=== PATIENT | male | born 1990 | race Caucasian/White ===

== ENCOUNTER 2021-04-17 15:05 | Emergency (ER) | payer MEDICAID, SELFPAY ==
[2021-04-17 15:52] VITALS: BP 136/77; PULSE 84; RESP 18; TEMP 36.5; O2SAT 96; BMI 39.1
--- NOTE | 2021-04-17 17:07 | ED.EYEPROB ---
HPI - Eye Problem General Chief complaint: Eye Problems Stated complaint: eye problems Time Seen by Provider: 04/17/21 16:44 Source: patient Mode of arrival: ambulatory Limitations: no limitations History of Present Illness HPI Narrative: Patient comes emergency room complaining of right eye erythema and itchiness and foreign body sensation. Patient states yesterday at work, he started noticing that his eye started bothering him, felt a little itchy, patient states that this morning his eye was sticky, had to clean it up to open it, has sand like sensation in his eye. Patient states that at work he does not remember any foreign bodies going into his eye. The left eye is within normal limits. Patient denies fever chills, no ear pain, no sinus pain. Related Data Previous Rx's Medication Instructions Recorded erythromycin 1 appl OPHTHALMIC-RIGHT BID #1 g 04/17/21 Allergies Allergy/AdvReac Type Severity Reaction Status Date / Time No Known Allergies Allergy Unverified 07/25/20 19:16 [No Known Allergies*] Review of Systems Review of Systems: Constitutional : No Weight loss, No Fever, No Chills, No Night Sweats, No Fatigue, No Malaise ENT/Mouth : No Hearing loss, No Ear Pain, No Nasal Congestion, No Sinus Pain, No Hoarseness, No sore throat, No Rhinorrhea, No Swallowing Difficulty Eyes: Mild eye burning, erythema, mild sticking discharge, normal vision bilaterally Cardiovascular : No Chest Pain, No SOB, No Dyspnea on Exertion, No Orthopnea, No Edema, No Palpitations Respiratory : No Cough, No Sputum, No Wheezing, No Smoke Exposure, No Dyspnea Gastrointestinal : No Nausea, No Vomiting, No Diarrhea, No Constipation, No abdominal Pain, No Hematochezia, No Melena Genitourinary : no irregular bleeding, No Dysuria, No Urinary Frequency, No Hematuria, No Urinary Incontinence, No Urgency, No Flank Pain, No Urinary Flow Changes, No Hesitancy Musculoskeletal : No joint pain, No Myalgias, No Joint Swelling Skin : No Skin Lesions, No rash Neuro : No Weakness, No Numbness, No Paresthesias, No Loss of Consciousness, No Dizziness, No Headache Psych : No Anxiety/Panic, No Depression, No SI/HI/AH/VH, No Social Issues, Heme/Lymph: No Bruising, No Bleeding,No Lymphadenopathy Endocrine : No Polyuria, No Polydipsia, No Temperature Intolerance PMFSH Past Medical History Medical History No known health problems Social History Social History Advance Directives: No Advance Directives Information Provided: Yes Physical Exam Vital Signs: Vital Signs: Last Vital Signs Temp 97.7 F 04/17/21 15:52 Pulse 84 04/17/21 15:52 Resp 18 04/17/21 15:52 BP 136/77 04/17/21 15:52 Pulse Ox 96 04/17/21 15:52 Body Mass Index 39.1 Appearance: Alert. Oriented X3. No acute distress. Eyes: Pupils equal, round and reactive to light. Erythematous eye on the right side, fluorescein stain test negative, no corneal abrasion. Visual acuity test bilaterally 25/20 ENT: Pharynx normal. Neck: Normal inspection. Neck supple. No lymph nodes noted. No crepitus CVS: Normal heart rate and rhythm. Pulses normal. Normal S1 and S2 Respiratory: No respiratory distress. Breath sounds normal. No Wheezing. No rales Abdomen: Soft and nontender. No rigidity. No distention. good BS x4 Skin: Skin warm and dry. Normal skin color. Normal skin turgor. Extremities: No lower extremity edema. No lower extremity edema. No Lacerations. No Rash Neuro: Oriented X 3. No motor deficit. No sensory deficit. Moving all extermities. No slurred speech. Discharge Plan Discharge Clinical Impression: Conjunctivitis Qualifiers: Conjunctivitis type: acute Acute conjunctivitis type: unspecified Laterality: right Qualified Code(s): H10.31 - Unspecified acute conjunctivitis, right eye Patient Disposition: Home, Self-Care Instructions: Conjunctivitis (ED) Additional Instructions: Please follow-up with your primary care physician tomorrow. If you have any worsening or new symptoms, please return to the emergency room or call 911 Prescriptions: New erythromycin 5 mg/gram (0.5 %) ointment 1 appl ophthalmic-Right BID Qty: 1 RF: 0
[2021-04-17] MEDS: Tetracaine HCl/PF 0.5% Oph Sol 4 ML DROPS 1 DROP EYE-BOTH (17:34)
[2021-04-17] MEDS: Fluorescein Sodium STRIP 1 STRIP EYE-RIGHT (17:34)
== END 2021-04-17 17:51 | disposition home or self-care (01) ==
PROVIDERS: Emergency Provider Emergency Medicine
DX: H10.31 Unspecified acute conjunctivitis, right eye (principal)
CPT/HCPCS: 99283

== ENCOUNTER 2023-09-24 22:25 | Emergency (ER) | payer OTHER, SELFPAY ==
[2023-09-24 22:37] VITALS: BP 152/88; PULSE 95; RESP 20; TEMP 36.9; O2SAT 96; BMI 41.9
--- NOTE | 2023-09-24 23:40 | ED_ITS ---
HPI - Allergic Reaction General Chief complaint: Allergic Reaction Stated complaint: Swollen Lip Time Seen by Provider: 09/24/23 23:27 Source: patient Mode of arrival: ambulatory Limitations: no limitations History of Present Illness HPI narrative: Patient with no history of any allergic reactions in the past took amoxicillin for the 1st time at 19:00 for tooth infection given by dentist also he was prescribed ibuprofen which he has taken before noticed swelling of the upper lip no throat swelling no difficulty in swallowing or shortness of breath no rash patient is not taking any other medication no allergic reaction in the past Related Data Previous Rx's Medication Instructions Recorded erythromycin 5 mg/gram (0.5 %) eye 1 appl ophthalmic-Right BID #1 g 04/17/21 ointment azithromycin 500 mg tablet 500 mg PO DAILY 3 days #3 tabs 09/25/23 (Zithromax TRI-CAROL) diphenhydramine HCl 25 mg capsule 50 mg (2 x 25 mg) PO TID PRN 09/25/23 (Benadryl) allergic reaction #20 caps Allergies Allergy/AdvReac Type Severity Reaction Status Date / Time No Known Allergies Allergy Unverified 07/25/20 19:16 [No Known Allergies*] Review of Systems Review of Systems: Yes all other systems are reviewed and are negative [facility] Past Medical History Medical History No known health problems Social History Social History Alcohol intake: never Smoked in Last 30 Days: No Use of substances other than those prescribed or required for medical reasons: No Advance Directives: No Advance Directives Information Provided: Yes Physical Exam ED Vital Signs: Vital Signs - 24 hr 09/24/23 22:37 09/24/23 23:50 Temperature 98.4 F 98.2 F Pulse Rate 95 83 Respiratory Rate 20 16 Blood Pressure 152/88 H 113/59 L Pulse Oximetry 96 94 Oxygen Delivery Method Room Air Room Air BMI result Body Mass Index 41.9 Appearance: Alert. Oriented X3. No acute distress. ENT: Pharynx normal. Uvula normal swollen upper lip, Oral Mucosa moist Neck: Normal inspection. Neck supple. No stridor CVS: Normal heart rate and rhythm. Pulses normal. Respiratory: No respiratory distress. Equal air entry bilateral, no whee zing/rales/rhonchi Abdomen: Soft and nontender. Skin: Skin warm and dry. No rash Neuro: Oriented X 3. Medications Administered Discontinued Medications Generic Name Dose Route Start Last Admin Trade Name Freq PRN Reason Stop Dose Admin Diphenhydramine HCl 50 mg 09/24/23 23:50 09/24/23 23:55 Diphenhydramine Hcl 50 Mg/Ml Vial IVPUSH 09/24/23 23:51 50 mg ONCE ONE Administration Methylprednisolone Sodium Succinate 125 mg 09/24/23 23:50 09/24/23 23:55 Methylprednisolone Sod Succ 125 Mg/2 Ml Vial IVPUSH 09/24/23 23:51 125 mg ONCE ONE Administration Medical Decision Making Medical Decision Making [facility] Narrative: Patient with localized angioedema secondary to amoxicillin which he took received Benadryl in the ER and steroids no further spread of the slight swelling discharge patient home advised not to take amoxicillin in future Discharge Plan Discharge Clinical Impression: Angioedema Patient Disposition: Home, Self-Care Instructions: Angioedema (ED) Additional Instructions: You are allergic to penicillin/amoxicillin Do not take these medications in future Take Benadryl as prescribed for allergic reaction Antibiotic as prescribed for teeth infection Report to the ER if worsening of the swelling of the lips/tongue/difficulty in breathing Eres al?rgico a la penicilina/amoxicilina. No tome estos medicamentos en el futuro. [place] Benadryl seg?n lo prescrito para malou reacci?n al?rgica. Antibi?princess recetado para la infecci?n de los dientes. Informe a urgencias si empeora la hinchaz?n de los Prescriptions: New azithromycin [Zithromax TRI-CAROL] 500 mg tablet 500 mg PO DAILY 3 Days Qty: 3 0RF diphenhydramine HCl [Benadryl] 25 mg capsule 50 mg PO TID PRN (Reason: allergic reaction) Qty: 20 0RF No Action erythromycin 5 mg/gram (0.5 %) ointment 1 appl ophthalmic-Right BID Qty: 1 0RF Stand Alone Forms: Work/School Release Interventions: ED Discharge Assessment Last Done: 09/25/23 01:18 Discharge Date/Time: 09/25/23 01:19 Print Language: French
[2023-09-24 23:50] VITALS: BP 113/59; PULSE 83; RESP 16; TEMP 36.8; O2SAT 94
[2023-09-24] MEDS: methylPREDNISolone Sod Succ 125 MG/2 ML VIAL IVPUSH (23:55)
[2023-09-24] MEDS: diphenhydrAMINE HCL 50 MG/ML VIAL IVPUSH (23:55)
--- NOTE | 2023-09-25 00:02 | PC.NURSE ---
Patient reports he developed lips swelling after taking Amoxicillin and Ibuprofen around 19:00 today recent dental work. Patient feels that his lips are swollen, no rash, no difficulty swallowing, airway patent. 20 G V line inserted in L AC, patient medicated per JAN. Dr. Gonzalez at bedside, call sanchez within patient's reach.
== END 2023-09-25 01:19 | disposition home or self-care (01) ==
PROVIDERS: Emergency Provider Internal Medicine
DX: T78.3XXA Angioneurotic edema, initial encounter (principal); Y99.9 Unspecified external cause status
CPT/HCPCS: 96374; 96375; 99284; J1200; J2930

== ENCOUNTER 2023-09-26 06:35 | Observation (INO) | payer OTHER, SELFPAY ==
[2023-09-26] VITALS (10 sets, daily range): BP systolic 110–142; BP diastolic 59–91; PULSE 78–99; RESP 14–28; TEMP 36.4–37.2; O2SAT 91–97; BMI 41.9
--- NOTE | 2023-09-26 07:17 | ED.ALLEREA ---
HPI - Allergic Reaction General Chief complaint: Allergic Reaction Stated complaint: gen med, was here recently Time Seen by Provider: 09/26/23 07:07 Source: patient Mode of arrival: ambulatory Limitations: no limitations History of Present Illness HPI narrative: Patient was seen it treated in the emergency department for angioedema of the lips the return today complaining of a recurrent swelling of the lips he was discharged on azithromycin previously was taking amoxicillin was felt that the amoxicillin was the culprit MD complaint: other (Swelling lips) Onset (ago): day(s) (1) Known history of allergy to: ? amoxicillin Symptoms: lip swelling Severity: moderate Treatment prior to arrival: benadryl Previous Allergic Reaction History: prior ED visit(s) Related Data Previous Rx's Medication Instructions Recorded azithromycin 500 mg tablet 500 mg PO DAILY 3 days #3 tabs 09/25/23 (Zithromax TRI-CAROL) diphenhydramine HCl 25 mg capsule 50 mg (2 x 25 mg) PO TID PRN 09/25/23 (Benadryl) allergic reaction #20 caps Allergies Allergy/AdvReac Type Severity Reaction Status Date / Time amoxicillin AdvReac Angioedema Verified 09/26/23 06:39 Penicillins AdvReac Angioedema Verified 09/26/23 06:40 Review of Systems Constitutional: Constitutional: Reports no additional constitutional complaints ENT: Reports system reviewed and no additional complaints, except as documented Cardiovascular: Cardiovascular: Reports no additional cardiovascular complaints Respiratory: Respiratory: Reports no additional respiratory complaints [facility] Past Medical History [facility] Narrative: denies Medical History No known health problems Social History Social History Alcohol intake: never Advance Directives: No Advance Directives Information Provided: Yes Physical Exam ED Vital Signs: Vital Signs - 24 hr 09/26/23 06:40 09/26/23 07:01 09/26/23 10:45 Temperature 97.9 F 98.4 F 99.0 F Pulse Rate 81 78 85 Respiratory Rate 18 19 19 Blood Pressure 131/86 142/91 H 124/81 Pulse Oximetry 97 96 96 Oxygen Delivery Method Room Air Room Air Room Air BMI result Body Mass Index 41.9 Patient looks well no toxic-appearing Const General: cooperative and comfortable Nutritional Appearance: well nourished Orientation/consciousness: patient oriented x3 Limitations: no limitations HENMT Other: Lip swelling noted Face and sinus: Yes other (Swelling lips) Throat: Yes posterior oropharynx normal Neck Neck: Yes normal visual inspection Chest Chest palpation & inspection: normal inspection of the chest Resp Effort & Inspection: normal respiratory effort Auscultation: clear to auscultation bilaterally Cardio Jugular venous distension: no JVD Rate: regular rate Rhythm: regular rhythm GI Inspection: Yes normal to inspection Palpation (GI): Soft to palpation, not firm and nontender Percussion: Yes normal to percussion Auscultation: normal bowel sounds Skin General skin exam: no rashes or lesions noted and elasticity normal Neuro General: patient oriented x3 Course Reevaluation(s) Reevaluation #1: Patient lips remained swallen this is the 2nd trip to the emergency department, I think it is reasonable to admit him for close monitoring Time: 13:49 Medications Administered Discontinued Medications Generic Name Dose Route Start Last Admin Trade Name Freq PRN Reason Stop Dose Admin Dexamethasone Sodium Phosphate 10 mg 09/26/23 07:15 09/26/23 07:51 Dexamethasone Sod Phosphate 10 Mg/Ml Vial IVPUSH 09/26/23 07:16 10 mg ONCE ONE Administration Diphenhydramine HCl 25 mg 09/26/23 07:15 09/26/23 07:50 Diphenhydramine Hcl 50 Mg/Ml Vial IVPUSH 09/26/23 07:16 25 mg ONCE ONE Administration Famotidine 20 mg 09/26/23 07:39 09/26/23 07:51 Famotidine/Pf 20 Mg/2 Ml Vial IVPUSH 09/26/23 07:40 20 mg ONCE ONE Administration Medical Decision Making Medical Decision Making [facility] Narrative: Patient presented with recurrent angioedema of the lips he has no stridorous, lungs are clear Differential Diagnosis Differential Diagnoses: The differential diagnosis associated with the presentation includes Angioedema lips allergic reaction Admission/Observation Consideration of admission/observation: Escalation of care including admission/observation considered Consult Healthcare Provider Management of the patient was discussed with: Hospitalist Lab Data [facility] Lab Attestation statement: I reviewed the patient's lab results. 09/26/23 07:38 09/26/23 07:38 Labs: Lab Results 09/26/23 Range/Units 07:38 WBC 11.1 H (4.8-10.8) X10*3/uL RBC 4.86 (4.60-5.80) X10*6/uL Hgb 15.3 (14.0-18.0) g/dl Hct 46.1 (42.0-52.0) % MCV 94.9 (80.0-98.0) fL MCH 31.5 (27.0-33.0) pg MCHC 33.2 (31.0-36.0) g/dl RDW 12.8 (11.0-16.0) % Plt Count 212 (160-400) X10*3/uL MPV 11.2 (9.4-12.4) fL Immature Gran % (Auto) 0.4 (0.0-0.4) % Neut % (Auto) 74.9 H (45-73) % Lymph % (Auto) 14.8 L (20-40) % [place] % (Auto) 9.4 (2-11) % Eos % (Auto) 0.2 (0-4) % Baso % (Auto) 0.3 (0-2) % Lymph # (Auto) 1.6 (1.2-4.9) X10*3/uL [place] # (Auto) 1.0 (0.1-1.2) X10*3/uL Eos # (Auto) 0.0 (0.0-0.4) X10*3/uL Baso # (Auto) 0.0 (0.0-0.2) X10*3/uL Abs Immat Gran (auto) 0.04 H (0.00-0.03) X10*3/uL Absolute Neuts (auto) 8.3 (2.0-8.3) x10*3/uL Absolute Nucleated RBC 0.000 (0.0-0.012) X10*3/uL Nucleated RBC % (auto) 0.0 (0.0-0.2) /100WBC Sodium 141 (135-145) mmol/L Potassium 3.7 (3.3-5.1) mmol/L Chloride 105 (96-108) mmol/L Carbon Dioxide 29 (22-29) mmol/L Anion Gap 11 L (12-20) BUN 16 (9-16) mg/dL Creatinine 0.93 (0.5-1.4) mg/dL Estim Creat Clear Calc 163.9 Estimated GFR > 60 Random Glucose 107 (60-115) mg/dL Calcium 9.6 (8.4-10.2) mg/dL Total Bilirubin 0.4 (0.0-1.0) mg/dL AST 22 (5-37) U/L ALT 44 H (0-40) U/L Alkaline Phosphatase 86 (39-117) U/L Total Protein 8.2 H (6.5-8.0) g/dL Albumin 4.1 (3.5-5.0) g/dL External Record Review External record reviewed: Inpatient record Critical Care Time Critical Care Time Critical Care Time: Yes Total Critical Care Time: 60 Attestation: IV decadron/Iv benadryl/IV tranaxenic acid Discharge Plan Discharge Clinical Impression: Angioedema Patient Disposition: Admitted As Inpatient
[2023-09-26 07:42] LABS: MANUAL DIFF FLAG NO
[2023-09-26 07:47] LABS: Basophils Percent Auto 0.3 % (0-2); Eosinophils Percent Auto 0.2 % (0-4); Hematocrit 46.1 % (42.0-52.0); Hemoglobin 15.3 g/dl (14.0-18.0); Imm Gran Abs Auto 0.04 X10*3/uL (0.00-0.03); Imm Gran Pct Auto 0.4 % (0.0-0.4); Lymphocytes Absolute Auto 1.6 X10*3/uL (1.2-4.9); Lymphocytes Percent Auto 14.8 % (20-40); Mean Corpuscular HGB Conc 33.2 g/dl (31.0-36.0); Mean Corpuscular Hemoglobin 31.5 pg (27.0-33.0); Mean Corpuscular Volume 94.9 fL (80.0-98.0); Mean Platelet Volume 11.2 fL (9.4-12.4); Monocytes Percent Auto 9.4 % (2-11); Neutrophils Absolute Auto 8.3 x10*3/uL (2.0-8.3); Neutrophils Percent Auto 74.9 % (45-73); Platelet Count 212 X10*3/uL (160-400); Red Blood Count 4.86 X10*6/uL (4.60-5.80); Red Cell Distribution Width 12.8 % (11.0-16.0); White Blood Count 11.1 X10*3/uL (4.8-10.8)
[2023-09-26] MEDS: diphenhydrAMINE HCL 50 MG/ML VIAL 25 MG IVPUSH (07:50)
[2023-09-26] MEDS: dexAMETHasone sod phosphate 10 MG/ML VIAL IVPUSH (07:51)
[2023-09-26] MEDS: Famotidine/PF 20 MG/2 ML VIAL IVPUSH ×3 (07:51→21:50)
[2023-09-26 07:57] LABS: Alanine Aminotransferase 44 U/L (0-40); Albumin Level 4.1 g/dL (3.5-5.0); Alkaline Phosphatase 86 U/L (39-117); Anion Gap 11 (12-20); Aspartate Amino Transferase 22 U/L (5-37); Bilirubin Total 0.4 mg/dL (0.0-1.0); Blood Urea Nitrogen 16 mg/dL (9-16); Calcium 9.6 mg/dL (8.4-10.2); Carbon Dioxide 29 mmol/L (22-29); Chloride 105 mmol/L (96-108); Creatinine Clr Calc Pharmacy 163.9; Estimated Glomerular Filt Rate > 60; Glucose Random 107 mg/dL (60-115); Potassium 3.7 mmol/L (3.3-5.1); Sodium 141 mmol/L (135-145); Total Protein 8.2 g/dL (6.5-8.0)
--- NOTE | 2023-09-26 09:18 | PC.NURSE ---
PT reports allergic reaction (lymphedema) related to penicillin. he was recently seen here and was given Benadryl. he returns today with the same complaint. pt denies sob/throat tightness. no complaints of any other symptoms. 20g iv inserted L upper outer arm, meds given as documented. no apparent distress. will continue to observe. vss.
[2023-09-26] MEDS: Tranexamic Acid 1,000 MG in 0.9 % Sodium Chloride 50 ML 360 MG IV (13:58)
--- NOTE | 2023-09-26 14:09 | PC.NURSE ---
TXA infused, patient tolerated well with no issue at this time
--- NOTE | 2023-09-26 14:16 | PC.NURSE ---
vital signs stable, no apparent distress
--- NOTE | 2023-09-26 14:28 | P.HPHOSP_ITS ---
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 .He went to his Dentist on Wednesday for dental work -three upper jaw front incisors has root canal done-went home started having pain 3 days trish -so given amoxicillin for tooth infection given by dentist also he was prescribed ibuprofen which he has taken before noticed swelling of the upper lip no throat swelling no difficulty in swallowing or shortness of breath no rash patient is not taking any other medication no allergic reaction in the past- he came to Ed was prescribed iv solumedrol,benadryl- seems improved and went home on 09/24/23 -given azithromycin/benadryl upon discharge ( which he took around each 1 tabs yesterday). he woke up this monring with swelling of the upper lip and pain so came back to ED:received dexamethsone,bendryl,famotidine with little effects- Ed requested admit for monitering for angioedema/iv steriods. labs imaging reviewed: WBC count 11.1 cmp fine except alt 44. Denies any new complaint of chest pain or shortness of breath or abdominal pain or fever or chills or nausea or vomiting or cough or any weakness or numbness. Review of Systems 2 Review of Systems: As above. [facility] Medical History No known health problems Pertinent family history: denies any family hx of allergic reaction Social History Household Members: Spouse Housing: House Do you presently have visiting nurse or other home services: No Alcohol intake: never Patient Tobacco Use Status: Never used Tobacco Smoked in Last 30 Days: No Patient Interested in Nicotine Replacement: No Patient Given Instructions on How to Stop Smoking: No Use of substances other than those prescribed or required for medical reasons: No Currently Displaying Signs/Symptoms of Drug Intoxication Withdrawal: No Any prior treatment program specific to substance use: No Have you been hit, kicked, punched, or otherwise hurt by someone within the past year? If so, by whom?: No Do you feel safe in your current relationship?: Yes Is there a partner from a previous relationship who is making you feel unsafe now?: No Are you made to feel afraid or neglected: No Advance Directives: No Advance Directives Information Provided: Yes Do you have thoughts of harming others: None Do you have a plan to hurt others: No Plan Recently lost weight without trying: No Eating poorly because of decreased appetite: No Nutrition Risks: No Nutritional Risk Poor oral hygiene: No Meds Allergies Allergy/AdvReac Type Severity Reaction Status Date / Time amoxicillin AdvReac Angioedema Verified 09/26/23 06:39 Penicillins AdvReac Angioedema Verified 09/26/23 06:40 Active Medications: Current Medications Diphenhydramine HCl (Diphenhydramine Hcl 25 Mg Capsule) 25 mg PO BID CELIA Famotidine (Famotidine/Pf 20 Mg/2 Ml Vial) 20 mg IVPUSH BID CELIA Methylprednisolone Sodium Succinate (Methylprednisolone Sod Succ 40 Mg/Ml Vial) 40 mg IVPUSH BID CELIA Metronidazole (Metronidazole 500 Mg Tablet) 500 mg PO Q8H CELIA Sodium Chloride (0.9 % Sodium Chloride Flush 3 Ml Syringe) 3 ml IVFLUSH QSHIFT CELIA Home Medications Medication Instructions Recorded Confirmed Last Taken Type No Known Home Meds 09/26/23 09/26/23 Unknown History Physical Exam 2 Vital Signs and Narrative: Vital Signs: Last Vital Signs Temp 98.5 F 09/26/23 14:14 Pulse 95 09/26/23 14:14 Resp 14 09/26/23 14:14 BP 127/83 09/26/23 14:14 Pulse Ox 95 09/26/23 14:14 O2 Del Method Room Air 09/26/23 14:14 BMI result Body Mass Index 41.9 Appearance: Alert.? Oriented X3.? not in distress.? Eyes: Pupils equal, round and reactive to light.? Sclera nonicteric.? ENT: Pharynx normal.? lip swollen upper >lower. poor denatl hygene. cvs: rrr, [id number] , no murmur res: clear to auscultation ,no rhonchii or wheezing abd: no rebound or guarding ,nt, bs present. ext pulses present , no cyanosis. neuro: axo3 , nonfocal. Results Labs 09/26/23 07:38 09/26/23 07:38 Labs: Laboratory Results - last 24 hr 11/19/23 07:38 MCV 94.9 MCH 31.5 MCHC 33.2 RDW 12.8 Plt Count 212 MPV 11.2 Immature Gran % (Auto) 0.4 Neut % (Auto) 74.9 H Lymph % (Auto) 14.8 L [place] % (Auto) 9.4 Eos % (Auto) 0.2 Baso % (Auto) 0.3 Lymph # (Auto) 1.6 [place] # (Auto) 1.0 Eos # (Auto) 0.0 Baso # (Auto) 0.0 Abs Immat Gran (auto) 0.04 H Absolute Neuts (auto) 8.3 Absolute Nucleated RBC 0.000 Nucleated RBC % (auto) 0.0 Anion Gap 11 L Estim Creat Clear Calc 163.9 Estimated GFR > 60 Random Glucose 107 Calcium 9.6 Total Bilirubin 0.4 AST 22 ALT 44 H Alkaline Phosphatase 86 Total Protein 8.2 H Albumin 4.1 Assessment and Plan (1) Angioedema: Qualifiers: Encounter type: initial encounter Qualified Code(s): T78.3XXA - Angioneurotic edema, initial encounter Status: Acute 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 2. dvt porphylax: activity oob and mobile patient low risk ,patient not interested chemoprophylax. 3. Morbid obesity: Advised to cut down color is, strongly advised to lose weight. patient need to be moniter overnight considering reccurrent episode of allregic reactions in last 2-3 days ( angioedema)-need iv steriods ,famotidine . Above management discussed the patient detail length he understand in agreement with the above plan, time spent 70 minute Quality Stroke Does the patient have a stroke diagnosis?: No VTE Prior VTE?: No VTE Risk Level:: Medical - moderate - high VTE Device Contraindication: N/A - Device Ordered VTE Drug Contraindication: N/A - Med Ordered
--- NOTE | 2023-09-26 14:41 | PHA.MEDREC ---
Pharmacy Consult ? Medication Reconciliation Pharmacy has completed the medication reconciliation. [employer] services utilized.
[2023-09-26] MEDS: 0.9 % Sodium Chloride Flush 3 ML SYRINGE IVFLUSH ×2 (15:35→21:50)
[2023-09-26] MEDS: methylPREDNISolone Sod Succ 40 MG/ML VIAL IVPUSH ×2 (15:35→21:49)
[2023-09-26] MEDS: metroNIDAZOLE 500 MG TABLET PO ×2 (15:35→21:50)
[2023-09-26] MEDS: diphenhydrAMINE HCL 25 MG CAPSULE PO ×2 (15:35→21:50)
[2023-09-27 00:38] VITALS: BP 117/57; PULSE 82; RESP 20; TEMP 36.1; O2SAT 94
[2023-09-27 03:16] VITALS: BP 117/61; PULSE 72; RESP 20; TEMP 36.1; O2SAT 97
[2023-09-27] MEDS: metroNIDAZOLE 500 MG TABLET PO (06:01)
[2023-09-27 07:33] VITALS: BP 110/57; PULSE 82; RESP 18; TEMP 36.7; O2SAT 97
[2023-09-27] MEDS: diphenhydrAMINE HCL 25 MG CAPSULE PO (10:28)
[2023-09-27] MEDS: Famotidine/PF 20 MG/2 ML VIAL IVPUSH (10:28)
[2023-09-27] MEDS: methylPREDNISolone Sod Succ 40 MG/ML VIAL IVPUSH (10:28)
[2023-09-27] MEDS: 0.9 % Sodium Chloride Flush 3 ML SYRINGE IVFLUSH (10:28)
--- NOTE | 2023-09-27 11:10 | P.DS_ITS ---
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 any allergic reactions .He went to his Dentist on Wednesday for dental work -three upper jaw front incisors has root canal done-went home started having pain 3 days trish -so given amoxicillin for tooth infection given by dentist also he was prescribed ibuprofen which he has taken before noticed swelling of the upper lip no throat swelling no difficulty in swallowing or shortness of breath no rash patient is not taking any other medication no allergic reaction in the past- he came to Ed was prescribed iv solumedrol,benadryl- seems improved and went home on 09/24/23 -given azithromycin/benadryl upon discharge ( which he took around each 1 tabs yesterday). he woke up this monring with swelling of the upper lip and pain so came back to ED:received dexamethsone,bendryl,famotidine with little effects- Ed requested admit for monitering for angioedema/iv steriods. labs imaging reviewed: WBC count 11.1 cmp fine except alt 44. Denies any new complaint of chest pain or shortness of breath or abdominal pain or fever or chills or nausea or vomiting or cough or any weakness or numbness. Hospital course: Patient was admitted because after having dental procedure on the upper jaw (root canals)-patient was given p.o. antibiotics(amoxicillin) and subsequently developed lip swelling, he is also not sure whether azithromycin had done the same: Patient was started on steroids, Benadryl, famotidine: Seems to be improved significantly. Patient will be going home with p.o. steroids, Benadryl, famotidine. Patient was given Flagyl -instead of amoxicillin/azithromycin: Patient has dental appointment tomorrow-further antibiotic management as per patient's dentist. Patient was strongly advised to follow-up with PCP and consider outpatient director facilities maintenance appointment for further management. plan: going home prednisone 40 mg po daily x4 days , Benadryl 25 mg po bid , famotidine 20 mg po bid -limited supply given. instead of amoxicillin/azithromycin-started on flagyl for possible s/p dental procedure : Patient has dental appointment tomorrow-further antibiotic management as per patient's dentist. follow-up with PCP and consider outpatient director facilities maintenance appointment for further management. Assessment plan coordination time spent 50 minutes, discussed the patient detail he understand in agreement with the plan. Time Attestation Discharge coordination time: Greater than 30 minutes Quality: Safe Use of Opioids Does Pt have an Active Cancer Diagnosis on the Problem List?: No Quality: Stroke Does the patient have a stroke diagnosis?: No Physical Exam Vital Signs: Vital Signs: Last Vital Signs Temp 98.1 F 09/27/23 07:33 Pulse 82 09/27/23 07:33 Resp 18 09/27/23 07:33 BP 110/57 L 09/27/23 07:33 Pulse Ox 97 09/27/23 07:33 O2 Del Method Room Air 09/27/23 07:33 BMI result Body Mass Index 41.9 Appearance: Alert.? Oriented X3.? not in distress.? Eyes: Pupils equal, round and reactive to light.? Sclera nonicteric.? ENT: Pharynx normal.? lip swellin seems improved . cvs: [id number], [id number] , no murmur res: clear to auscultation ,no rhonchii or wheezing abd: no rebound or guarding ,nt, bs present. ext pulses present , no cyanosis . neuro: axo3 , nonfocal. Discharge Plan Discharge Anticipated Discharge Date/Time: 09/27/23 11:03 Patient Disposition: Home, Self-Care Discharge Diagnosis: angioedema -possible related to amxoicillin,? azithromycin Referrals: Physician,Unknown J [Primary Care Provider] - 1 Week Discharge Medications: New metronidazole 500 mg Tablet 500 mg PO Q8H Qty: 15 0RF famotidine 20 mg tablet 20 mg PO BID Qty: 14 0RF prednisone 20 mg tablet 40 mg PO DAILY Qty: 8 0RF diphenhydramine HCl 25 mg Capsule 25 mg PO BID Qty: 10 0RF Discharge Orders: Discharge Order (Routine); Ordered 09/27/23 Ordered By: José Ferraro Diet: Advance to usual diet Activity on Discharge: As tolerated Stand Alone Forms: Patient Portal Discharge page Care Plan Goals: Patient was admitted because after having dental procedure on the upper jaw (root canals)-patient was given p.o. antibiotics(amoxicillin) and subsequently developed lip swelling, he is also not sure whether azithromycin had done the same: Patient was started on steroids, Benadryl, famotidine: Seems to be improved significantly. Patient will be going home with p.o. steroids, Benadryl, famotidine. Patient was given Flagyl -instead of amoxicillin/azithromycin: Patient has dental appointment tomorrow-further antibiotic management as per patient's dentist. Patient was strongly advised to follow-up with PCP and consider outpatient director facilities maintenance appointment for further management. Health Concerns: as above. Plan of Treatment: as above. Assessment: as above. Patient Instructions: Angioedema (GEN)
--- NOTE | 2023-09-27 14:24 | MHC.CM.PN ---
EMR REVIEWED, CM MET W/PT VIA COOPERATIVE MANAGER, PT REPORTS HE IS INDEP W/ALL CARE/WORKS/DRIVES, PT DNIES USE OF DME/SERVICES. PT HAS BEEN EDUCATED ON AND COMPLETED A HCP NAMING HIS SISTER MAYE BOYD [phone] HIS [facility] AND NO ALTERNATE. PT RECEIVED EDUCATIONAL HANDOUT/HC IN [facility], COPY UPLOADED TO [employer] AND PLACED IN CHART. PT DENIES HAVING A HCP AND HAS BEEN PROVIDED W/[facility] PROVIDER LIST AND NUMBER/ADDRESS FOR [facility] PT DISCHARGED HOME SELF-CARE AND WILL SELF TRANSPORT
== END 2023-09-27 13:44 | disposition home or self-care (01) ==
LOC: HO.ED 13:08 → HO.EDOVER 14:25 → HO.IMC 18:19
PROVIDERS: Admitting Provider Internal Medicine; Emergency Provider Emergency Medicine; Visit Provider Internal Medicine
DX: T78.3XXA Angioneurotic edema, initial encounter (principal); Y93.89 Activity, other specified; Z98.818 Other dental procedure status; Z09 Encounter for follow-up examination after completed treatment for conditions other than malignant neoplasm; K13.0 Diseases of lips
CPT/HCPCS: 36415; 80053; 85025; 96374; 96375; 96376; 99222; 99285; J1100; J1200; J2920

== ENCOUNTER → 2023-09-26 14:21 | Outpatient (BNV) | payer OTHER, SELFPAY | PROVIDERS: Admitting Provider Internal Medicine; Emergency Provider Emergency Medicine; Visit Provider Internal Medicine | DX: T78.3XXA Angioneurotic edema, initial encounter (principal) | CPT/HCPCS: 99221; 99239 ==

== ENCOUNTER 2024-02-07 21:13 | Emergency (ER) | payer MEDICAID, SELFPAY ==
--- NOTE | ~2024-02-07 | XR_ITS ---
EXAMINATION: XR CHEST CLINICAL INFORMATION: Dyspnea. COMPARISON: Chest radiograph 04/03/2017. TECHNIQUE: 2 views of the chest were obtained. FINDINGS: Low lung volumes with mild diffuse interstitial prominence. No consolidation, pleural effusion or pneumothorax. Normal appearance of the cardiomediastinal silhouette accounting for low lung volumes and AP technique. No acute issues findings. Visualized upper abdomen is within normal limits. XR/XR chest 2V IMPRESSION: Findings suggesting small airways disease versus atypical/viral infection without consolidation nor pleural effusion.
[2024-02-07 21:23] VITALS: BP 124/76; PULSE 104; RESP 20; TEMP 36.9; O2SAT 94; BMI 42.0
[2024-02-07 22:12] LABS: Influenza A PCR NEGATIVE (Negative); Influenza B PCR POSITIVE (Negative); Resp Syncy Virus RNA Qual PCR NEGATIVE (Negative); SARS COV2 PCR INHOUSE NEGATIVE (Negative)
--- NOTE | 2024-02-08 03:05 | ED_ITS ---
HPI - URI/Sore Throat General Chief Complaint: Upper Respiratory Symptoms Stated Complaint: Shortness of breath Time Seen by Provider: 02/08/24 02:57 Source: patient Mode of arrival: ambulatory Limitations: no limitations History of Present Illness HPI Narrative: Patient comes to the emergency room complaining of 1 week of body aches, intermittent wheezing, generalized malaise, subjective fever and chills. Patie nt denies any chest pain or shortness of breath, no abdominal pain, no hematuria or dysuria. Related Data Previous Rx's Medication Instructions Recorded diphenhydramine HCl 25 mg capsule 25 mg PO BID #10 caps 09/27/23 famotidine 20 mg tablet 20 mg PO BID #14 tabs 09/27/23 metronidazole 500 mg tablet 500 mg PO Q8H #15 tabs 09/27/23 prednisone 20 mg tablet 40 mg (2 x 20 mg) PO DAILY #8 tabs 09/27/23 albuterol sulfate 90 mcg/actuation 2 puff inhalation Q4-6H PRN 02/08/24 aerosol inhaler shortness of breath or wheezing #8.5 grams Allergies Allergy/AdvReac Type Severity Reaction Status Date / Time amoxicillin AdvReac Angioedema Verified 02/07/24 21:23 azithromycin AdvReac Angioedema Verified 02/07/24 21:23 Penicillins AdvReac Angioedema Verified 02/07/24 21:23 Review of Systems Review of Systems: Constitutional : No Weight loss, complaining of subjective Fever, No Chills, No Night Sweats, laying of fatigue and generalized malaise ENT/Mouth : No Hearing loss, No Ear Pain, No Nasal Congestion, No Sinus Pain, No Hoarseness, No sore throat, No Rhinorrhea, No Swallowing Difficulty Eyes: No Eye Pain, No Swelling, No Redness, No Foreign Body, No Discharge, No Vision Changes Cardiovascular : No Chest Pain, No SOB, No Dyspnea on Exertion, No Orthopnea, No Edema, No Palpitations Respiratory : No Cough, No Sputum, No Wheezing, No Smoke Exposure, No Dyspnea Gastrointestinal : No Nausea, No Vomiting, No Diarrhea, No Constipation, No abdominal Pain, No Hematochezia, No Melena Genitourinary : no irregular bleeding, No Dysuria, No Urinary Frequency, No Hematuria, No Urinary Incontinence, No Urgency, No Flank Pain, No Urinary Flow Changes, No Hesitancy Musculoskeletal : No joint pain, complaining of diffuse Myalgias, No Joint Swelling Skin : No Skin Lesions, No rash Neuro : No Weakness, No Numbness, No Paresthesias, No Loss of Consciousness, No Dizziness, No Headache Psych : No Anxiety/Panic, No Depression, No SI/HI/AH/VH, No Social Issues, Heme/Lymph: No Bruising, No Bleeding,No Lymphadenopathy Endocrine : No Polyuria, No Polydipsia, No Temperature Intolerance [facility] Past Medical History Medical History No known health problems Social History Social History Household Members: Spouse Housing: House Do you presently have visiting nurse or other home services: No Alcohol intake: never Patient Tobacco Use Status: Never used Tobacco Advance Directives: No Advance Directives Information Provided: No service: No Physical Exam Vital Signs: Vital Signs: Last Vital Signs Temp 98.4 F 02/07/24 21:23 Pulse 104 H 02/07/24 21:23 Resp 20 02/07/24 21:23 BP 124/76 02/07/24 21:23 Pulse Ox 94 02/07/24 21:23 O2 Del Method Room Air 02/07/24 21:23 BMI result Body Mass Index 42.0 Const: Other: Appearance: Alert. Oriented X3. No acute distress. Eyes: Pupils equal, round and reactive to light. Bilateral conjunctival injection with no discharge ENT: Pharynx normal. Neck: Normal inspection. Neck supple. No lymph nodes noted. No crepitus CVS: Normal heart rate and rhythm. Pulses normal. Normal S1 and S2 Respiratory: No respiratory distress. Breath sounds normal. No Wheezing. No rales Abdomen: Soft and nontender. No rigidity. No distention. Skin: Skin warm and dry. Normal skin color. Normal skin turgor. Extremities: No lower extremity edema. No Lacerations. No Rash Neuro: Oriented X 3. No motor deficit. No sensory deficit. Moving all extremities. No slurred speech. CN 2 through 12 grossly intact Psych: calm, cooperative, normal affect Medical Decision Making Medical Decision Making MDM Narrative: -patient's lung exams are reassuring, no wheezing, good air movement, oxygen saturation 96% on room air -my interpretation of x-ray: No consolidation -my interpretation of labs: Patient tested positive for influenza -I discussed with the patient that he has been symptomatic for 1 week, at this time, Tamiflu will not be of any benefit. Patient agreeable to treat symptomatically. -patient states that he has history of asthma, he has not been having exacerbations but he is concerned that he does not have an inhaler available if he has an asthma exacerbation. I discussed with the patient that I will send an inhaler to his pharmacy - Differential Diagnosis Differential Diagnoses: The differential diagnosis associated with the presentation includes (Influenza a, influenza B, COVID, viral syndrome) Lab Data MDM Lab Attestation statement: I reviewed the patient's lab results. Labs: Lab Results 02/07/24 Range/Units 21:30 Influenza Type A (PCR) NEGATIVE (Negative) Influenza Type B (PCR) POSITIVE A (Negative) RSV RNA Qual (PCR) NEGATIVE (Negative) SARS-CoV-2 RNA (RT-PCR) NEGATIVE (Negative) Discharge Plan Discharge Clinical Impression: Influenza Patient Disposition: Home, Self-Care Instructions: Influenza (ED) Additional Instructions: Please follow-up with your primary care physician tomorrow. If you have any worsening or new symptoms, please return to the emergency room or call 911 Prescriptions: New albuterol sulfate 90 mcg/actuation HFA aerosol inhaler 2 puff inhalation Q4-6H PRN (Reason: shortness of breath or wheezing) Qty: 8.5 0RF No Action metronidazole 500 mg Tablet 500 mg PO Q8H Qty: 15 0RF famotidine 20 mg tablet 20 mg PO BID Qty: 14 0RF prednisone 20 mg tablet 40 mg PO DAILY Qty: 8 0RF diphenhydramine HCl 25 mg Capsule 25 mg PO BID Qty: 10 0RF
[2024-02-08 03:18] VITALS: BP 119/73; PULSE 88; RESP 20; TEMP 37.2; O2SAT 96
== END 2024-02-08 03:23 | disposition home or self-care (01) ==
PROVIDERS: Emergency Medicine; Emergency Provider Emergency Medicine
DX: J10.1 Influenza due to other identified influenza virus with other respiratory manifestations (principal); R06.02 Shortness of breath; M79.10 Myalgia, unspecified site; R50.9 Fever, unspecified; Z11.52 Encounter for screening for COVID-19; Z20.822 Contact with and (suspected) exposure to COVID-19
CPT/HCPCS: 0241U; 71046; 99283

== ENCOUNTER 2024-03-07 15:33 | Outpatient (REF) | payer MEDICAID, SELFPAY ==
[2024-03-07 17:56] LABS: MANUAL DIFF FLAG NO
[2024-03-07 18:00] LABS: Basophils Percent Auto 0.3 % (0-2); Eosinophils Absolute Auto 0.1 X10*3/uL (0.0-0.4); Eosinophils Percent Auto 0.9 % (0-4); Hematocrit 45.6 % (42.0-52.0); Hemoglobin 15.1 g/dl (14.0-18.0); Imm Gran Abs Auto 0.02 X10*3/uL (0.00-0.03); Imm Gran Pct Auto 0.3 % (0.0-0.4); Lymphocytes Absolute Auto 1.5 X10*3/uL (1.2-4.9); Lymphocytes Percent Auto 23.7 % (20-40); Mean Corpuscular HGB Conc 33.1 g/dl (31.0-36.0); Mean Corpuscular Hemoglobin 30.4 pg (27.0-33.0); Mean Corpuscular Volume 91.8 fL (80.0-98.0); Mean Platelet Volume 11.4 fL (9.4-12.4); Monocytes Absolute Auto 0.5 X10*3/uL (0.1-1.2); Monocytes Percent Auto 8.4 % (2-11); Neutrophils Absolute Auto 4.2 x10*3/uL (2.0-8.3); Neutrophils Percent Auto 66.4 % (45-73); Platelet Count 207 X10*3/uL (160-400); Red Blood Count 4.97 X10*6/uL (4.60-5.80); White Blood Count 6.3 X10*3/uL (4.8-10.8)
[2024-03-07 18:16] LABS: Alanine Aminotransferase 48 U/L (0-40); Alkaline Phosphatase 92 U/L (39-117); Anion Gap 14 (12-20); Aspartate Amino Transferase 33 U/L (5-37); Bilirubin Total 0.5 mg/dL (0.0-1.0); Blood Urea Nitrogen 10 mg/dL (9-16); Calcium 9.7 mg/dL (8.4-10.2); Carbon Dioxide 24 mmol/L (22-29); Chloride 104 mmol/L (96-108); Cholesterol 159 mg/dL (<200); Estimated Glomerular Filt Rate > 60; Glucose Fasting 94 mg/dL (60-99); HDL Cholesterol 46 mg/dL (>40); LDL Cholesterol Calculated 98 mg/dL (<100); Sodium 138 mmol/L (135-145); Total Protein 8.2 g/dL (6.5-8.0); Triglycerides 79 mg/dL (<150)
[2024-03-07 18:34] LABS: TSH reflex Free T4 5.35 uIU/mL (0.32-4.0); Vitamin D 25-OH Total 13.4 ng/mL (>30)
== END 2024-03-07 15:34 | disposition home or self-care (01) ==
LOC: HO.CHCLDS 15:33
PROVIDERS: Visit Provider Family Medicine
DX: E66.01 Morbid (severe) obesity due to excess calories (principal); Z68.41 Body mass index [BMI] 40.0-44.9, adult
CPT/HCPCS: 36415; 80053; 80061; 82306; 84439; 84443; 85025

== ENCOUNTER 2024-03-21 11:14 | Outpatient (REF) | payer MEDICAID, SELFPAY ==
[2024-03-21 11:57] LABS: MANUAL DIFF FLAG NO
[2024-03-21 12:10] LABS: Basophils Percent Auto 0.3 % (0-2); Eosinophils Absolute Auto 0.1 X10*3/uL (0.0-0.4); Hematocrit 46.3 % (42.0-52.0); Hemoglobin 15.5 g/dl (14.0-18.0); Imm Gran Abs Auto 0.02 X10*3/uL (0.00-0.03); Imm Gran Pct Auto 0.3 % (0.0-0.4); Lymphocytes Absolute Auto 1.5 X10*3/uL (1.2-4.9); Lymphocytes Percent Auto 23.7 % (20-40); Mean Corpuscular HGB Conc 33.5 g/dl (31.0-36.0); Mean Corpuscular Hemoglobin 30.5 pg (27.0-33.0); Mean Corpuscular Volume 91.1 fL (80.0-98.0); Mean Platelet Volume 10.6 fL (9.4-12.4); Monocytes Absolute Auto 0.5 X10*3/uL (0.1-1.2); Monocytes Percent Auto 7.7 % (2-11); Neutrophils Absolute Auto 4.2 x10*3/uL (2.0-8.3); Platelet Count 235 X10*3/uL (160-400); Red Blood Count 5.08 X10*6/uL (4.60-5.80); Red Cell Distribution Width 12.9 % (11.0-16.0); White Blood Count 6.3 X10*3/uL (4.8-10.8)
[2024-03-21 12:53] LABS: Alanine Aminotransferase 65 U/L (0-40); Albumin Level 4.1 g/dL (3.5-5.0); Alkaline Phosphatase 99 U/L (39-117); Anion Gap 12 (12-20); Aspartate Amino Transferase 42 U/L (5-37); Bilirubin Total 0.4 mg/dL (0.0-1.0); Blood Urea Nitrogen 12 mg/dL (9-16); Calcium 9.7 mg/dL (8.4-10.2); Carbon Dioxide 28 mmol/L (22-29); Chloride 104 mmol/L (96-108); Cholesterol 160 mg/dL (<200); Estimated Glomerular Filt Rate > 60; Glucose Random 99 mg/dL (60-115); HDL Cholesterol 44 mg/dL (>40); LDL Cholesterol Calculated 100 mg/dL (<100); Potassium 4.5 mmol/L (3.3-5.1); Sodium 139 mmol/L (135-145); Total Protein 8.3 g/dL (6.5-8.0); Triglycerides 80 mg/dL (<150)
[2024-03-21 13:12] LABS: Free T4 (Free Thyroxine) 0.77 ng/dL (0.71-1.85); TSH reflex Free T4 6.25 uIU/mL (0.32-4.0); Vitamin D 25-OH Total 19.1 ng/mL (>30)
[2024-03-22 12:53] LABS: Thyroid Peroxidase Antibodies >900 IU/mL (<9)
[2024-03-24 17:08] LABS: Thyroid Stimulating Immunoglob 126 % baseline (<140)
[2024-03-25 21:59] LABS: Thyrotropin Receptor Antibody <1.00 IU/L (<=2.00)
== END 2024-03-21 11:15 | disposition home or self-care (01) ==
LOC: HO.CHCLDS 11:14
PROVIDERS: Visit Provider Family Medicine
DX: R79.89 Other specified abnormal findings of blood chemistry (principal); E66.01 Morbid (severe) obesity due to excess calories; Z68.41 Body mass index [BMI] 40.0-44.9, adult
CPT/HCPCS: 36415; 80053; 80061; 82306; 83520; 84439; 84443; 84445; 85025; 86376

== ENCOUNTER → 2024-04-25 16:07 | Outpatient (REF) | payer MEDICAID, SELFPAY | LOC: HO.SL 16:07 | PROVIDERS: PCP Family Medicine; Visit Provider Family Medicine | DX: G47.33 Obstructive sleep apnea (adult) (pediatric) (principal) | CPT/HCPCS: 95806 ==

== ENCOUNTER → 2024-04-25 19:00 | Outpatient (BNV) | payer MEDICAID, SELFPAY | PROVIDERS: PCP Family Medicine; Visit Provider Psychiatry & Neurology Neurology | DX: G47.33 Obstructive sleep apnea (adult) (pediatric) (principal) | CPT/HCPCS: 95806 ==

== ENCOUNTER 2024-05-31 19:28 | Emergency (ER) | payer MEDICAID, SELFPAY ==
--- NOTE | ~2024-05-31 | XR_ITS ---
EXAMINATION: XR SHOULDER, RIGHT CLINICAL INFORMATION: Pain after lifting. COMPARISON: None available. TECHNIQUE: Three views of the right shoulder. FINDINGS: No fracture. No dislocation. Glenohumeral joint and acromioclavicular joint is normal. There is a group of small soft tissue calcifications adjacent to the greater tuberosity humeral head consistent with calcific tendinosis. XR/XR shoulder RT min 2V IMPRESSION: 1. No acute abnormality. 2. Soft tissue calcifications consistent with calcific tendinosis.
[2024-05-31 20:30] VITALS: BP 117/70; PULSE 86; RESP 18; TEMP 36.8; O2SAT 97; BMI 42.0
--- NOTE | 2024-05-31 20:33 | ED_ITS ---
HPI - General Adult General Chief complaint: Extremity Injury, Upper Stated complaint: shoulder pain and tired Time Seen by Provider: 05/31/24 22:35 Source: patient Mode of arrival: ambulatory Limitations: no limitations History of Present Illness ED Provider: kristopher DOMINGUEZ narrative: Patient complaining of pain in the right shoulder after moving heavy stuff at work was 2 hours prior to arrival also complaining of weakness and tiredness for several days it does have sleep apnea just received his CPAP machine which has not used yet also patient feel depressed fair appetite poor sleep Related Data Previous Rx's ?Medication ?Instructions ?Recorded diphenhydramine HCl 25 mg capsule 25 mg PO BID #10 caps 09/27/23 famotidine 20 mg tablet 20 mg PO BID #14 tabs 09/27/23 metronidazole 500 mg tablet 500 mg PO Q8H #15 tabs 09/27/23 prednisone 20 mg tablet 40 mg (2 x 20 mg) PO DAILY #8 tabs 09/27/23 albuterol sulfate 90 mcg/actuation 2 puff inhalation Q4-6H PRN 02/08/24 aerosol inhaler shortness of breath or wheezing #8.5 grams ibuprofen 600 mg tablet 600 mg PO Q6H PRN fever or pain 05/31/24 #30 tabs Allergies Allergy/AdvReac Type Severity Reaction Status Date / Time amoxicillin AdvReac Angioedema Verified 05/31/24 20:32 azithromycin AdvReac Angioedema Verified 05/31/24 20:32 Penicillins AdvReac Angioedema Verified 05/31/24 20:32 Review of Systems Review of Systems: Yes all other systems are reviewed and are negative PMFSH Past Medical History Medical History No known health problems Social History Social History Household Members: Spouse Housing: House Do you presently have visiting nurse or other home services: No Alcohol intake: never Patient Tobacco Use Status: Never used Tobacco Advance Directives: No Advance Directives Information Provided: No Do you have a plan to hurt others: No Plan service: No Physical Exam ED Vital Signs: Vital Signs - 24 hr 05/31/24 20:30 05/31/24 22:00 05/31/24 23:37 Temperature 98.2 F 98.2 F 98.2 F Pulse Rate 86 76 76 Respiratory Rate 18 19 19 Blood Pressure 117/70 117/65 117/65 Pulse Oximetry 97 98 98 Oxygen Delivery Method Room Air Room Air Room Air BMI result Body Mass Index 42.0 Appearance: Alert. Oriented X3. No acute distress. ENT: Pharynx normal. Oral Mucosa moist Neck: Normal inspection. Neck supple. CVS: Normal heart rate and rhythm. Pulses normal. Respiratory: No respiratory distress. Equal air entry bilateral, no wheezing/rales/rhonchi Abdomen: Soft and nontender. Bowel sounds are present, no mass palpable, no CVA tenderness Skin: Skin warm and dry. Normal skin color. Normal skin turgor. Extremities: No lower extremity edema. No calf tenderness right shoulder diffuse tenderness increased pain on abduction open can test negative good internal rotation and external rotation Neuro: Oriented X 3. No motor deficit. No sensory deficit.No cerebellar signs , cranial nerves II-XII intact Course Course Course Narrative: This is a rapid medical exam performed by Cherrie Renae NP: Additional HPI, ROS, PE not included below will be deferred to primary provider. Patient is a 33-year-old Bulgarian speaking male presenting to the ED with complaint of right shoulder pain which began after he came home from work today. Does lifting at work. Denies fall or other trauma. +CMS dital. Plan: xray Medications Administered Discontinued Medications Generic Name Dose Route Start Last Admin Trade Name Ira PRN Reason Stop Dose Admin Ibuprofen 600 mg 05/31/24 23:05 05/31/24 23:10 Ibuprofen 600 Mg Tablet PO 05/31/24 23:06 600 mg ONCE ONE Administration Medical Decision Making Medical Decision Making [facility] Narrative: Patient's right shoulder pain likely clinically with rotator cuff strain x-rays negative will prescribe ibuprofen also patient advised to follow with PCP for depression Lab Data Labs: Lab Results 05/31/24 Range/Units 23:34 POC Glucose 127 H (60-115) mg/dL Independent Interpretation I performed an independent interpretation of an: Plain X-Ray Radiology Impression Discussion of test interpretation with radiology: I have reviewed the radiologist's reading. Discharge Plan Discharge Clinical Impression: Muscle strain of right shoulder Patient Disposition: Home, Self-Care Instructions: Rotator Cuff Injury (ED), Rotator Cuff Injury Exercises (DC) Additional Instructions: Do not lift heavy using right arm till gets completely better Ibuprofen for pain Follow with PCP for depression Prescriptions: New ibuprofen 600 mg tablet 600 mg PO Q6H PRN (Reason: fever or pain) Qty: 30 0RF No Action metronidazole 500 mg Tablet 500 mg PO Q8H Qty: 15 0RF famotidine 20 mg tablet 20 mg PO BID Qty: 14 0RF prednisone 20 mg tablet 40 mg PO DAILY Qty: 8 0RF diphenhydramine HCl 25 mg Capsule 25 mg PO BID Qty: 10 0RF albuterol sulfate 90 mcg/actuation HFA aerosol inhaler 2 puff inhalation Q4-6H PRN (Reason: shortness of breath or wheezing) Qty: 8.5 0RF Stand Alone Forms: Work/School Release Interventions: ED Discharge Assessment Last Done: 05/31/24 23:37 Discharge Date/Time: 05/31/24 23:37 Print Language: Bulgarian
[2024-05-31 22:00] VITALS: BP 117/65; PULSE 76; RESP 19; TEMP 36.8; O2SAT 98
[2024-05-31] MEDS: Ibuprofen 600 MG TABLET PO (23:10)
[2024-05-31 23:36] LABS: Glucose, Whole Blood 127 mg/dL (60-115)
[2024-05-31 23:37] VITALS: BP 117/65; PULSE 76; RESP 19; TEMP 36.8; O2SAT 98
== END 2024-05-31 23:37 | disposition home or self-care (01) ==
PROVIDERS: Emergency Provider Internal Medicine; PCP Family Medicine
DX: S46.911A Strain of unspecified muscle, fascia and tendon at shoulder and upper arm level, right arm, initial encounter (principal); X50.0XXA Overexertion from strenuous movement or load, initial encounter; Y93.89 Activity, other specified; Y92.59 Other trade areas as the place of occurrence of the external cause; Y99.0 Civilian activity done for income or pay
CPT/HCPCS: 73030; 82947; 99283; 99284

== ENCOUNTER 2024-10-23 08:52 | Outpatient (REF) | payer MEDICAID, SELFPAY ==
[2024-10-23 14:45] LABS: Alanine Aminotransferase 38 U/L (0-40); Albumin Level 3.9 g/dL (3.5-5.0); Alkaline Phosphatase 86 U/L (39-117); Anion Gap 9 (12-20); Aspartate Amino Transferase 38 U/L (5-37); Bilirubin Total 0.4 mg/dL (0.0-1.0); Blood Urea Nitrogen 15 mg/dL (9-16); Calcium 9.1 mg/dL (8.4-10.2); Carbon Dioxide 29 mmol/L (22-29); Chloride 105 mmol/L (96-108); Estimated Glomerular Filt Rate > 60; Glucose Random 96 mg/dL (60-115); Sodium 139 mmol/L (135-145); Total Protein 7.8 g/dL (6.5-8.0)
[2024-10-24 08:14] LABS: HBS Num1 16.45 mIU/mL (0-7.99); HBc Num1 0.19 S/CO (0.00-0.79); HBsAGNum1 0.45 S/CO (0.00-0.99); HIV AB/AG Nonreactive (Nonreactive); HIV Num 1 0.12 S/CO (0.00-0.99); Hepatitis B Core Antibody Nonreactive (Nonreactive); Hepatitis B Surface Antigen Negative (Negative); ~HepC Num1 0.21 S/CO (0.00-0.79); ~Hepatitis B Surface Antibody REACTIVE (Nonreactive); ~Hepatitis C Antibody Nonreactive (Nonreactive)
== END 2024-10-23 08:53 | disposition home or self-care (01) ==
LOC: HO.CHCLDS 08:52
PROVIDERS: Visit Provider Family Medicine
DX: Z00.00 Encounter for general adult medical examination without abnormal findings (principal); E66.813 Obesity, class 3; E66.01 Morbid (severe) obesity due to excess calories; Z68.41 Body mass index [BMI] 40.0-44.9, adult; Z23 Encounter for immunization
CPT/HCPCS: 36415; 80053; 86704; 86706; 86803; 87340; 87389

== ENCOUNTER 2024-12-11 16:15 | Emergency (ER) | payer MEDICAID, SELFPAY ==
[2024-12-11 16:43] VITALS: BP 132/83; PULSE 91; RESP 18; TEMP 36.8; O2SAT 96; BMI 42.8
--- NOTE | 2024-12-11 16:47 | ED_ITS ---
HPI - General Adult General Chief complaint: Back Pain/Injury Stated complaint: back side feels very hot Time Seen by Provider: 12/11/24 21:18 Related Data Previous Rx's ?Medication ?Instructions ?Recorded diphenhydramine HCl 25 mg capsule 25 mg PO BID #10 caps 09/27/23 famotidine 20 mg tablet 20 mg PO BID #14 tabs 09/27/23 metronidazole 500 mg tablet 500 mg PO Q8H #15 tabs 09/27/23 prednisone 20 mg tablet 40 mg (2 x 20 mg) PO DAILY #8 tabs 09/27/23 albuterol sulfate 90 mcg/actuation 2 puff inhalation Q4-6H PRN 02/08/24 aerosol inhaler shortness of breath or wheezing #8.5 grams ibuprofen 600 mg tablet 600 mg PO Q6H PRN fever or pain 05/31/24 #30 tabs cyclobenzaprine 10 mg tablet 10 mg PO TID PRN pain #14 tabs 12/11/24 Allergies Allergy/AdvReac Type Severity Reaction Status Date / Time amoxicillin AdvReac Angioedema Verified 12/11/24 16:45 azithromycin AdvReac Angioedema Verified 12/11/24 16:45 Penicillins AdvReac Angioedema Verified 12/11/24 16:45 PMFSH Past Medical History Medical History No known health problems Social History Social History Household Members: Spouse Housing: House Do you presently have visiting nurse or other home services: No Alcohol intake: never Patient Tobacco Use Status: Never used Tobacco Smoked in Last 30 Days: No Use of substances other than those prescribed or required for medical reasons: No Advance Directives: No Advance Directives Information Provided: No Do you have a plan to hurt others: No Plan service: No Physical Exam ED Vital Signs: Vital Signs - 24 hr 12/11/24 16:43 12/11/24 20:07 Temperature 98.2 F 99.5 F Pulse Rate 91 101 H Respiratory Rate 18 16 Blood Pressure 132/83 132/82 Pulse Oximetry 96 94 Oxygen Delivery Method Room Air Room Air BMI result Body Mass Index 42.8 Course Course Course Narrative: RME performed by Amanda Chaney PA-C. Patient is a 34 year old assigned male at presenting to the emergency department with headache, neck pain, and upper back pain. Patient states that he woke up yesterday with a headache, neck pain, and upper back pain. Patient states that he has tried lidocaine patches, ibuprofen, and tylenol but nothing has helped. Limited physical exam performed in triage showed a well appearing 34 year old male able to move his neck and extremities freely. Detailed physical exam and review of systems are deferred to the mortuary beautician. Patient placed back in the waiting room pending room availability. Medications Administered Discontinued Medications Generic Name Dose Route Start Last Admin Trade Name Freq PRN Reason Stop Dose Admin Ketorolac Tromethamine 30 mg 12/11/24 21:38 12/11/24 21:48 Ketorolac Tromethamine 30 Mg/Ml Vial IM 12/11/24 21:39 30 mg ONCE ONE Administration Lorazepam 1 mg 12/11/24 21:38 12/11/24 21:48 Lorazepam 2 Mg/Ml Vial IM 12/11/24 21:39 1 mg ONCE ONE Administration Medical Decision Making Lab Data Labs: Lab Results 12/11/24 Range/Units 16:51 Influenza Type A (PCR) NEGATIVE (Negative) Influenza Type B (PCR) NEGATIVE (Negative) RSV RNA Qual (PCR) NEGATIVE (Negative) SARS-CoV-2 RNA (RT-PCR) NEGATIVE (Negative) Discharge Plan Discharge Clinical Impression: Torticollis Patient Disposition: Home, Self-Care Instructions: Spasmodic Torticollis (ED) Prescriptions: New cyclobenzaprine 10 mg tablet 10 mg PO TID PRN (Reason: pain) Qty: 14 0RF No Action ibuprofen 600 mg tablet 600 mg PO Q6H PRN (Reason: fever or pain) Qty: 30 0RF metronidazole 500 mg Tablet 500 mg PO Q8H Qty: 15 0RF famotidine 20 mg tablet 20 mg PO BID Qty: 14 0RF prednisone 20 mg tablet 40 mg PO DAILY Qty: 8 0RF diphenhydramine HCl 25 mg Capsule 25 mg PO BID Qty: 10 0RF albuterol sulfate 90 mcg/actuation HFA aerosol inhaler 2 puff inhalation Q4-6H PRN (Reason: shortness of breath or wheezing) Qty: 8.5 0RF Referrals: Zofia Pascual MD [Primary Care Provider] - 12/13/24 Print Language: Danish
[2024-12-11 17:35] LABS: Influenza A PCR NEGATIVE (Negative); Influenza B PCR NEGATIVE (Negative); Resp Syncy Virus RNA Qual PCR NEGATIVE (Negative); SARS COV2 PCR INHOUSE NEGATIVE (Negative)
[2024-12-11 20:07] VITALS: BP 132/82; PULSE 101; RESP 16; TEMP 37.5; O2SAT 94
--- NOTE | 2024-12-11 21:33 | PC.NURSE ---
powder core tester at bedside. pt a&ox4, respirations even and unlabored. pt reporting waking up with a stiff neck reports he is unable to move his neck in any direction at this time. reports he tried tylenol/ibuprofen and a lidocaine patch with no relief. pt denies any fever/chills/n/v/d. when attempting to move pt neck manually, pt reports 10/10 pain. vss.
--- NOTE | 2024-12-11 21:34 | ED.GENADULT ---
HPI - General Adult General Chief complaint: Back Pain/Injury Stated complaint: back side feels very hot Time Seen by Provider: 12/11/24 21:18 History of Present Illness HPI narrative: Patient is a 34-year-old male with no significant past medical history woke up yesterday morning with having neck pain. There is no photophobia. There is no fever no chills no cough no congestion. Pain is bad with any movement of the neck both turning to the left turning to the right. No chest pain. Patient denies any bowel urinary incontinence. Denies any trauma. Try to take some Motrin with only moderate relief. Came to the ED for help. Related Data Previous Rx's ?Medication ?Instructions ?Recorded diphenhydramine HCl 25 mg capsule 25 mg PO BID #10 caps 09/27/23 famotidine 20 mg tablet 20 mg PO BID #14 tabs 09/27/23 metronidazole 500 mg tablet 500 mg PO Q8H #15 tabs 09/27/23 prednisone 20 mg tablet 40 mg (2 x 20 mg) PO DAILY #8 tabs 09/27/23 albuterol sulfate 90 mcg/actuation 2 puff inhalation Q4-6H PRN 02/08/24 aerosol inhaler shortness of breath or wheezing #8.5 grams ibuprofen 600 mg tablet 600 mg PO Q6H PRN fever or pain 05/31/24 #30 tabs cyclobenzaprine 10 mg tablet 10 mg PO TID PRN pain #14 tabs 12/11/24 Allergies Allergy/AdvReac Type Severity Reaction Status Date / Time amoxicillin AdvReac Angioedema Verified 12/11/24 16:45 azithromycin AdvReac Angioedema Verified 12/11/24 16:45 Penicillins AdvReac Angioedema Verified 12/11/24 16:45 Review of Systems Review of Systems: Positive neck pain Yes all other systems are reviewed and are negative PMFSH Past Medical History Attestation statement: The following information was validated with the patient. Medical History No known health problems Social History Social History Household Members: Spouse Housing: House Do you presently have visiting nurse or other home services: No Alcohol intake: never Patient Tobacco Use Status: Never used Tobacco Advance Directives: No Advance Directives Information Provided: No Do you have a plan to hurt others: No Plan service: No Physical Exam ED Vital Signs: Vital Signs - 24 hr 12/11/24 16:43 12/11/24 20:07 Temperature 98.2 F 99.5 F Pulse Rate 91 101 H Respiratory Rate 18 16 Blood Pressure 132/83 132/82 Pulse Oximetry 96 94 Oxygen Delivery Method Room Air Room Air BMI result Body Mass Index 42.8 Appearance: Alert. Oriented X3. No acute distress. Eyes: Pupils equal, round and reactive to light. ENT: Pharynx normal. Neck: Normal inspection. Neck supple. No lymph nodes noted. No crepitus. CVS: Normal heart rate and rhythm. Pulses normal. Normal S1 and S2 Respiratory: No respiratory distress. Breath sounds normal. No Wheezing. No rales Abdomen: Soft and nontender. No rigidity. No distention. good BS x4 Skin: Skin warm and dry. Normal skin color. Normal skin turgor. Extremities: No lower extremity edema. Neurovascular intact to all extremities. No Lacerations. No Rash Neuro: Oriented X 3. No motor deficit. No sensory deficit. Moving all extermities. No slurred speech Medical Decision Making Medical Decision Making [facility] Narrative: Patient well appearing no acute distress. Has no headache no fever no signs of meningitis. Has pain to the neck. Worse with movement sudden in onset consistent with torticollis. There is no focal finding. Patient tried some Motrin to no avail. Will give patient muscle relaxant. While in the ED a dose of Toradol dose of Ativan was given for muscle relaxant. Currently in stable condition. Neurologically intact. No distress. Vital signs are normal. In stable condition. Differential Diagnosis Differential Diagnoses: The differential diagnosis associated with the presentation includes Torticollis, meningitis, cord compression, trauma Admission/Observation Consideration of admission/observation: Escalation of care including admission/observation considered Lab Data [facility] Lab Attestation statement: I reviewed the patient's lab results. Labs: Lab Results 12/11/24 Range/Units 16:51 Influenza Type A (PCR) NEGATIVE (Negative) Influenza Type B (PCR) NEGATIVE (Negative) RSV RNA Qual (PCR) NEGATIVE (Negative) SARS-CoV-2 RNA (RT-PCR) NEGATIVE (Negative) Independent Historian Clinical information obtained from an independent historian. History obtained from or confirmed by: Spouse Prescription Management I considered prescription management with: Pain Medication Discharge Plan Discharge Clinical Impression: Torticollis Patient Disposition: Home, Self-Care Instructions: Spasmodic Torticollis (ED) Prescriptions: New cyclobenzaprine 10 mg tablet 10 mg PO TID PRN (Reason: pain) Qty: 14 0RF No Action ibuprofen 600 mg tablet 600 mg PO Q6H PRN (Reason: fever or pain) Qty: 30 0RF metronidazole 500 mg Tablet 500 mg PO Q8H Qty: 15 0RF famotidine 20 mg tablet 20 mg PO BID Qty: 14 0RF prednisone 20 mg tablet 40 mg PO DAILY Qty: 8 0RF diphenhydramine HCl 25 mg Capsule 25 mg PO BID Qty: 10 0RF albuterol sulfate 90 mcg/actuation HFA aerosol inhaler 2 puff inhalation Q4-6H PRN (Reason: shortness of breath or wheezing) Qty: 8.5 0RF Referrals: Zofia Pascual MD [Primary Care Provider] - 12/13/24 Print Language: Colombian
[2024-12-11] MEDS: Ketorolac Tromethamine 30 MG/ML VIAL IM (21:48)
[2024-12-11] MEDS: LORazepam 2 MG/ML VIAL 1 MG IM (21:48)
[2024-12-11 22:18] VITALS: BP 115/61; PULSE 96; RESP 14; TEMP 36.9; O2SAT 96
== END 2024-12-11 22:19 | disposition home or self-care (01) ==
PROVIDERS: Physician Assistant Medical; Emergency Provider Emergency Medicine Emergency Medical Services; PCP Family Medicine
DX: M43.6 Torticollis (principal); M54.2 Cervicalgia; Z03.818 Encounter for observation for suspected exposure to other biological agents ruled out; Z79.899 Other long term (current) drug therapy
CPT/HCPCS: 0241U; 96372; 99284; J1885; J2060

== ENCOUNTER 2025-02-19 10:58 | Outpatient (REF) | payer MEDICAID, SELFPAY ==
--- NOTE | ~2025-02-19 | XR_ITS ---
EXAMINATION: XR CHEST 2 VIEWS HISTORY: Right sided chest wall pain after Bariatric surgery COMPARISON: Comparison is made with the prior examination dated 02/07/2024. FINDINGS: PA and lateral views of the chest are submitted. The lungs are expanded and clear. There is no pleural effusion, pneumothorax, or pulmonary vascular congestion. The heart is normal in size. The bones are intact. XR/XR chest 2V IMPRESSION: No acute cardiopulmonary abnormality. Electronically signed by: Chad Crook MD 02/19/2025 03:16 PM EDT
[2025-02-19 11:12] LABS: MANUAL DIFF FLAG NO
[2025-02-19 11:57] LABS: Basophils Percent Auto 0.3 % (0-2); Eosinophils Absolute Auto 0.1 X10*3/uL (0.0-0.4); Eosinophils Percent Auto 0.7 % (0-4); Hematocrit 42.9 % (42.0-52.0); Hemoglobin 14.2 g/dl (14.0-18.0); Imm Gran Abs Auto 0.05 X10*3/uL (0.00-0.03); Imm Gran Pct Auto 0.4 % (0.0-0.4); Lymphocytes Absolute Auto 1.3 X10*3/uL (1.2-4.9); Lymphocytes Percent Auto 11.3 % (20-40); Mean Corpuscular HGB Conc 33.1 g/dl (31.0-36.0); Mean Corpuscular Hemoglobin 30.9 pg (27.0-33.0); Mean Corpuscular Volume 93.3 fL (80.0-98.0); Mean Platelet Volume 9.9 fL (9.4-12.4); Monocytes Absolute Auto 0.7 X10*3/uL (0.1-1.2); Monocytes Percent Auto 6.1 % (2-11); Neutrophils Absolute Auto 9.5 x10*3/uL (2.0-8.3); Neutrophils Percent Auto 81.2 % (45-73); Platelet Count 568 X10*3/uL (160-400); Red Cell Distribution Width 12.9 % (11.0-16.0); White Blood Count 11.7 X10*3/uL (4.8-10.8)
[2025-02-19 12:27] LABS: D Dimer High Sensitivity 1105 NG/ML
[2025-02-19 12:48] LABS: Alanine Aminotransferase 68 U/L (0-40); Albumin Level 3.8 g/dL (3.5-5.0); Alkaline Phosphatase 97 U/L (39-117); Anion Gap 11 (12-20); Aspartate Amino Transferase 49 U/L (5-37); Bilirubin Total 0.5 mg/dL (0.0-1.0); Blood Urea Nitrogen 12 mg/dL (9-16); Calcium 10.5 mg/dL (8.4-10.2); Carbon Dioxide 29 mmol/L (22-29); Chloride 103 mmol/L (96-108); Estimated Glomerular Filt Rate > 60; Glucose Random 94 mg/dL (60-115); Sodium 138 mmol/L (135-145); Total Protein 9.4 g/dL (6.5-8.0)
--- OUTSIDE RECORDS SUMMARY | 2025-02-19 13:00 | XMS_ITS | Encounter Summary ---
Author Organization [employer] Address [address] [place] [address] Care Team Providers Care Hypoid Gear Tester Name Role Phone Zofia Pascual MD Primary Care Provider [phone] Encounter Details Date Type Department Care Team (Late st Contact Info) Description 02/06/2025 Orders Only [facility] MED [facility] PEDS [address] [place], [place] [id number] Provider, MD Candice Social History Tobacco Use Types Packs/Day Years Used Date Smoking Tobacco: Never Passive Smoke Exposure: Never Smokeless Tobacco: Never Alcohol Use Standard Drinks/Week Comments Yes 0 (1 standard drink = 0.6 oz pur e alcohol) Depression Answer Date Recorded Patient Health Questionnaire-9 Score 3 10/20/2024 Patient Health Questionnaire-9 Score 3 10/20/2024 Last PHQ-9: Questionnaire Data Not on file 1 12/21/2023 Housing Stability Answer Date Recorded What is your housing situation today? I have housing today, but I am worried about losing housing in the future 02/08/[address] you li ve. Do you have problems with any of the following? None of the above 02/08/2025 Food Insecurity Answer Date Recorded Within the past 12 months, y ou worried that your food would run out before you got money to buy more: Sometimes True 2024 Within the past 12 months,th e food you bought just didn't last and you didn't have enough money to get more: Sometimes True 02/08/2025 Transportation Answer Date Recorded In the past 12 months, has l ack of transportation kept you from medical appts, meetings, work or from getting things needed for daily living? No 03/20/2024 Utilities Answer Date Recorded In the past 12 months, has t he electric, gas, oil or water company threatened to shut off services in your home? Yes 02/08/2025 Depression Answer Date Recorded Patient Health Questionnaire-2 Score 0 10/20/2024 Internet Access Answer Date Recorded Internet Access Q1 No 02/08/2025 Internet Access Q2 I cannot afford it 02/08/2025 Sex and Gender Information Value Date Recorded Sex Assigned at Male 03/06/2024 9:37 AM EDT Legal Sex Male 3:04 PM EDT Gender Identity Male 03/06/2024 9:37 AM EDT Sexual Orientation Straight 03/06/2024 9: 37 AM EDT documented as of this encounter Plan of Treatment Not on file documented as of this encounter Procedures Procedure Name Priority Date/Time Associated Diagnosis Comments CT ABDOMEN PELVIS W CONTRAST Routine 02/05/2025 9:43 AM EDT documented in this encounter Results * CT Abdomen Pelvis w/ Contrast (02/05/2025 9:43 AM EDT) Anatomical Region Laterality Modality Body, Pelvis, Abdomen Computed T omography us Historical Provider MD GOMEZ CT PROCEDURES Final R esult documented in this encounter Visit Diagnoses Not on filedocumented in this encounter Additional Health Concerns Assessment Noted Time PHQ-9 Depression Total Score: 3 10/20/20 24 1:24 PM EST documented as of this encounter Care Teams Hypoid Gear Tester Relationship Specialty Start Date End Date Zofia Pascual MD [address] [place] [phone] PCP - General Family Medicine 03/07/24 documented as of this encounter
--- OUTSIDE RECORDS SUMMARY | 2025-02-19 13:00 | XMS_ITS | Encounter Summary ---
Author Organization [employer] Address [address] [place] [address] [address] [place] [address] Care Team Providers Care Reconnaissance Man Name Role Phone Zofia Pascual MD Primary Care Provider [phone] Reason for Referral * Cardiology (Routine) - Authorized Specialty Diagnoses / Procedures Referred By Contvito mandel Referred To Contact Cardiology Diagnoses Other specified hypothyroidism Right-sided chest wall pain Procedures Holter monitor - 48 hour Lina Caba MD [address] [place] [address] Phone: tel: fax: [address] Phone: tel: fax: Referral ID Status Reason Start Date Expiration Date V isits Requested Visits Authorized [id number] Authorized 02/15/2025 02/15/2026 1 1 Encounter Details Date Type Department Care Team (Latest Contact Info) Description 02/15/2025 10:00 AM EDT Office Visit [facility] MED & PEDS [address], [place] [phone] Lina Caba MD [address] [place], [place] [phone] Other specified hypothyroidism (Primary Dx); Right-sided chest wall pain; Tachycardia; Contact dermatitis due to other agent, unspecified contact dermatitis type Social History Tobacco Use Types Packs/Day Years [...] AM EDT documented as of this encounter Last Filed Vital Signs Vital Sign Reading Time Taken Comments Blood Pressure 120/76 02/15/2025 10:12 AM EDT Pulse 91 02/15/2025 10:12 AM EDT Temperature 37.2 ??C (98.9 ??F) 02/15/2025 10:12 AM E DT Respiratory Rate 20 02/15/2025 10:12 AM EDT Oxygen Saturation 98% 02/15/2025 10:12 AM EDT Inhaled Oxygen Concentration - - Weight 132 kg (290 lb) 02/15/2025 10:12 AM EDT Height 171 cm (5' 7.32 ) 02/15/2025 10:12 AM EDT Body Mass Index 44.99 02/15/2025 10:12 AM EDT documented in this encounter Progress Notes * Lina Caba MD - 02/15/2025 10:00 AM EDT Subjective Patient ID: Clive Draper is a 34 y.o. male who presents for No chief complaint on file.. [facility] Hospital discharge follow-up Admitted at [facility] from February 02 to February 09, 2025 for assisted laparoscopic sleeve gastrectomy. Hospitalization complicated with a tachycardia up to [address] abdomen pelvis: Right lower quadrant abscess measuring 5 cm. Treated with IR guided drainage catheter. The abdominal distention improved and postop pain well-controlled. Accordion drain change to ANGEL drain bulb. Discharged on ciprofloxacin 500 mg 2 times a day Metronidazole 500 mg 3 times a day Tramadol every 6 hours as needed for pain control. Patient came to the office with who did most of the talking. He has a rash at the site of the injection of his anticoagulant to prevent clot. History of tachycardia during the surgery. Patient denies palpitations. He is also complaining of discomfort of the right posterior chest with deep breathing. No reported fever or other constitutional symptoms. 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 albuterol 108 (90 Base) MCG/ACT inhaler Inhale 2 puffs every 4 (four) hours if needed for wheezing.18 g 2 cholecalciferol (Vitamin D-3) 50 MCG (2000 UT) capsule Take 1 capsule (50 mcg) by mouth Once per day. 120 capsule 3 [] ciprofloxacin (Cipro) 500 MG tablet Take 1 tablet by mouth 2 times daily. GaviLAX 17 GM/SCOOP powder MIX 1 PACKET INTO BEVERAGE AND TAKE BY MOUTH ONCE EVERY DAY levothyroxine (Synthroid) 50 MCG tablet Take 1 tablet (50 mcg) by mouth before breakfast. 90 tablet1 [] metroNIDAZOLE (Flagyl) 500 MG tablet Take 1 tablet by mouth 3 times daily. [] ondansetron (Zofran) 4 MG tablet Take 1 tablet by mouth every 8 (eight) hours if needed for nausea or vomiting. pantoprazole (ProtoNix) 40 MG EC tablet Take 1 tablet by mouth before breakfast. simethicone (Mylicon) 80 MG chewable tablet Chew 1 tablet every 6 (six) hours if needed for flatulence. ursodiol (Actigall) 300 MG capsule Take 1 capsule by mouth 2 times daily. Wheat Dextrin (benefiber drink mix) packet Take 1 packet by mouth Once per day. No current facility-administered medications on file prior to visit. Allergies Allergen Reactions Penicillins Swelling and Rash Review of Systems Constitutional: Negative for activity change, appetite change, chills, diaphoresis, fatigue, fever and unexpected weight change. Respiratory: Negative for apnea, cough, chest tightness and shortness of breath. Right posterior lower rib cage pain with deep breathing Musculoskeletal: Negative for back pain and gait problem. Objective Physical Exam Vitals reviewed. Constitutional: General: He is not in acute distress. Appearance: Normal appearance. He is obese. He is not ill-appearing, toxic- appearing or diaphoretic. Cardiovascular: Rate and Rhythm: Normal rate. Pulmonary: Effort: Pulmonary effort is normal. Skin: Comments: 1) multiple healing incision with an overlying scab and glue of the abdomen. No surrounding erythema 2) patient had a dressing in place on the right lower quadrant without surrounding erythema or swelling. 3) left lower abdomen: Erythematous macule with some fine scales with some area of your last serouscolor. For similar findings on the right side of the umbilicus Neurological: Mental Status: He is alert. Assessment/Plan Diagnoses and all orders for this visit: Other specified hypothyroidism Comments: Labs ordered Patient will be contacted with results Orders: - D Dimer High Sensitivity; Future - Comprehensive Metabolic Panel; Future - CBC auto differential; Future - TSH W/Reflex to FT4; Future - Holter monitor - 48 hour; Future Right-sided chest wall pain Comments: Unclear etiology. ??? Muscle spasms, ???PE D-dimer was ordered with a chest x-ray Orders: - XR Chest 2 Views; Future - Holter monitor - 48 hour; Future Tachycardia Comments: A Holter monitor was ordered TSH also ordered. Contact dermatitis due to other agent, unspecified contact dermatitis type - triamcinolone (Kenalog) 0.1 % cream; Apply topically if needed in the morning and at bedtime (pain and swelling). documented in this encounter Plan of Treatment Pending Results Name Type Priority Associated Diagnoses Date /Time Comprehensive Metabolic Panel Lab Routine Other specified hypothyroidism 02/19/2025 11:08 AM EDT Scheduled Orders Name Type Priority Associated Diagnoses Orde r Schedule XR Chest 2 Views Imaging Routine Right-sided chest wall pain Expected: 02/15/2025, Expires: 02/15/2026 TSH W/Reflex to FT4 Lab Routine Other specified hypothyroidism Expected: 02/15/2025 (Approximate), Expires: 02/15/2026 Holter monitor - 48 hour Cardiac Services Routine Other specified hypothyroidism Right-sided chest wall pain Expected: 02/15/2025 (Approximate), Expires: 02/15/2027 documented as of this encounter Procedures Procedure Name Priority Date/Time Associated Diagnosis Comments D DIMER HIGH SENSITIVITY Routine 02/19/2025 11:08 AM EDT Other specified hypothyroidism CBC WITH AUTO DIFFERENTIAL Routine 02/19/2025 11:08 AM EDT Other specified hypothyroidism COMPREHENSIVE METABOLIC PANEL Routine 02/19/2025 11:08 AM EDT Other specified hypothyroidism documented in this encounter Results * (ABNORMAL) CBC auto differential (02/19/2025 11:08 AM EDT) White Blood Count 11.7(H) 4.8 - 10.8 X10*3/uL [facility] Red Blood Count 4.60 4.60 - 5.80 X10*6/uL [facility] Hemoglobin 14.2 14.0 - 18.0 g/dl [facility] Hematocrit 42.9 42.0 - 52.0 % [facility] Mean Corpuscular Volume 93.3 80.0 - 98.0 fL [facility] Mean Corpuscular Hemoglobin 30.9 27.0 - 33.0 pg [facility] Mean Corpuscular HGB Conc 33.1 31.0 - 36.0 g/dl [facility] Red Cell Distribution Width 12.9 11.0 - 16.0 % [facility] Platelet Count 568(H) 160 - 400 X10*3/uL [facility] Mean Platelet Volume 9.9 9.4 - 12.4 fL [facility] Neutrophils Percent Auto 81.2(H) 45 - 73 % [facility] Imm Gran Pct Auto 0.4 0.0 - 0.4 % [facility] Lymphocytes Percent Auto 11.3(L) 20 - 40 % [facility] Monocytes Percent Auto 6.1 2 - 11 % [facility] Eosinophils Percent Auto 0.7 0 - 4 % [facility] Basophils Percent Auto 0.3 0 - 2 % [facility] NRBC Pct Auto 0.0 0.0 - 0.2 /100WBC [facility] Neutrophils Absolute Auto 9.5(H) 2.0 - 8.3 x10*3/uL [facility] Imm Gran Abs Auto 0.05(H) 0.00 - 0.03 X10*3/uL [facility] Lymphocytes Absolute Auto 1.3 1.2 - 4.9 X10*3/uL [facility] Monocytes Absolute Auto 0.7 0.1 - 1.2 X10*3/uL [facility] Eosinophils Absolute Auto 0.1 0.0 - 0.4 X10*3/uL [facility] Basophils Absolute Auto 0.0 0.0 - 0.2 X10*3/uL [facility] NRBC Abs Auto 0.000 0.0 - 0.012 X10*3/uL [facility] Blood Venous blood specimen / Unknown 02/19/2025 11:08 AM EDT 02/19/2025 11:11 AM EDT us Lina Caba MD LAB BLOOD ORDERABLES Final Result Performing Organization Address [facility] [[email or web address]] Co de Phone Number [facility] [address] [place] [phone] * D Dimer High Sensitivity (02/19/2025 11:08 AM EDT) D Dimer High Sensitivity 1,105 NG/ML [facility] Comment:Results of D DIMER c alled to SAL Roberto on 02/19/25at 1211 by [email or web address]- DIMER HS REFERENCE RANGENote: Our assay reports D-Dimer Units (D-DU).The cut-off value for venous thromboembolic (VTE) disease is230 ng/mL. This value has a very high negative predictivevalue when the patient has a low to moderate clinicalprobability of VTE.The upper limit of normal is 243 ng/mL. Blood 02/19/2025 11:0 8 AM EDT 02/19/2025 11:11 AM EDT us Lina Caba MD LAB BLOOD ORDERABLES Final Result Performing Organization Address [facility] Phone Number [facility] [address] [place] [phone] documented in this encounter Visit Diagnoses Diagnosis Other specified hypothyroidism- Primary Right-sided chest wall pain Painful respiration Tachycardia Unspecified tachycardia Contact dermatitis due to other agent, unspecified contact dermatitis type documented in this encounter Additional Health Concerns Assessment Noted Time PHQ-9 Depression Total Score: 3 10/20/20 24 1:24 PM EST documented as of this encounter Care Teams Reconnaissance Man Relationship Specialty Start Date End Date Zofia Pascual MD [address] [place] [phone] PCP - General Family Medicine 03/07/24 documented as of this encounter
--- OUTSIDE RECORDS SUMMARY | 2025-02-19 13:00 | XMS_ITS | Encounter Summary ---
Author Organization [email or web address] Address [address] [facility] [address] [place] [address] Care Team Providers Care Microfilm Duplicating Unit Supervisor Name Role Phone Zofia Pascual MD Primary Care Provider [phone] Encounter Details Date Type Department Care Team (Late st Contact Info) Description 01/22/2025 Orders Only [facility] [address] [place] [address] Provider, MD Candice Social History Tobacco Use [...] is your housing situation today? I have pooja courtney 03/20/[address] you li ve. Do you have problems with any of the following? None of the above 03/20/2024 Food Insecurity Answer Date Recorded Within the past 12 months, y ou worried that your food would run out before you got money to buy more: Never True 03/20/2024 Within the past 12 months,th e food you bought just didn't last and you didn't have enough money to get more: Never True Transportation Answer Date Recorded In the past 12 months, has l ack of transportation kept you from medical appts, meetings, work or from getting things needed for daily living? No 03/20/2024 Utilities Answer Date Recorded In the past 12 months, has t he electric, gas, oil or water company threatened to shut off services in your home? No 03/20/2024 Depression Answer Date Recorded Patient Health Questionnaire-2 Score 0 10/20/2024 Sex and Gender Information Value Date Recorded Sex Assigned at Male 03/06/2024 9:37 AM EDT Legal Sex Male 3:04 PM EDT Gender Identity Male 03/06/2024 9:37 AM EDT Sexual Orientation Straight 03/06/2024 9: 37 AM EDT documented as of this encounter Plan of Treatment Not on file documented as of this encounter Procedures Procedure Name Priority Date/Time Associated Diagnosis Comments XR CHEST 2 VIEWS Routine 01/22/2025 2:28 PM EDT documented in this encounter Results * XR Chest 2 Views (01/22/2025 2:28 PM EDT) Anatomical Region Laterality Modality Chest Radiographic Concepcion ging us Historical Provider IMIsh XR PROCEDURES Final R esult documented in this encounter Visit Diagnoses Not on filedocumented in this encounter Additional Health Concerns Assessment Noted Time PHQ-9 Depression Total Score: 3 10/20/20 24 1:24 PM EST documented as of this encounter Care Teams Microfilm Duplicating Unit Supervisor Relationship Specialty Start Date End Date Zofia Pascual MD [address] [place] [address] PCP - General Family Medicine 03/07/24 documented as of this encounter
--- OUTSIDE RECORDS SUMMARY | 2025-02-19 13:00 | XMS_ITS | Encounter Summary ---
Author Organization [employer] Address [address] [place] [address] Care Team Providers Care Senior Payroll Administrator Name Role Phone Zofia Pascual MD Primary Care Provider [phone] Encounter Details Date Type Department Care Team ([facility] st Contact Info) Description 02/05/2025 Orders Only [facility] [address] [place], [place] [id number] Provider, MD Candice Social History Tobacco Use [...] Name Priority Date/Time Associated Diagnosis Comments CT CHEST ANGIO W AND WO IV CONTRAST Routine 02/03/2025 10:10 AM EDT ECG 12-LEAD Routine 02/03/2025 10:03 AM EDT documented in this encounter Results * CT CHEST ANGIO W AND WO IV CONTRAST (02/03/2025 10:10 AM EDT) Anatomical Region Laterality Modality Computed Tomogra phy us Historical Provider IMG CT PROCEDURES Final R esult * ECG 12 lead (02/03/2025 10:03 AM EDT) us Historical Provider ECG ORDERABLES Final Res ult documented in this encounter Visit Diagnoses Not on filedocumented in this encounter Additional Health Concerns Assessment Noted Time PHQ-9 Depression Total Score: 3 10/20/20 24 1:24 PM EST documented as of this encounter Care Teams Senior Payroll Administrator Relationship Specialty Start Date End Date Zofia Pascual MD [address] [place] [address] PCP - General Family Medicine 03/07/24 documented as of this encounter
--- OUTSIDE RECORDS SUMMARY | 2025-02-19 13:01 | XMS_ITS | Encounter Summary ---
Author Organization [employer] Address [address] [place] [address] Care Team Providers Care Apparel Sales Leader Name Role Phone Zofia Pascual MD Primary Care Provider [phone] Reason for Visit * Reason Onset Date Comments critical result 02/19/2025 Encounter Details Date Type Department Care Team ([facility] st Contact Info) Description 02/19/2025 Telephone [facility] [address] [place] [address] Lina Caba MD [address] [place] [address] critical result Social History Tobacco Use Types Packs/Day Years [...] AM EDT documented as of this encounter Miscellaneous Notes * Telephone Encounter - Kylah Bond RN - 02/19/2025 12:51 PM EDT TC to [facility] at [facility] ED. Pt information and lab results given. RN states that the pt is on the [facility]. Lavelle verbalizes understanding and agreement with the plan of care. * Telephone Encounter - Annabel Graves RN - 02/19/2025 12:48 PM EDT TC to pt to instruct to go to nearest ER due to elevated D-Dimer and possible blood clot. director title used. Pt verbalized understanding and stated would go to [facility]. * Telephone Encounter - Lina Caba MD - 02/19/2025 12:47 PM EDT FYI. He needs to be evaluated in the emergency department to rule out pulmonary embolism or deep venous thrombosis. * Telephone Encounter - Jenni Alonzo RN - 02/19/2025 12:30 PM EDT Tc received from [facility] lab with critical D- Dimer result of 1,150. Forwarded to provider and team nurses. documented in this encounter Plan of Treatment Not on file documented as of this encounter Visit Diagnoses Not on filedocumented in this encounter Additional Health Concerns Assessment Noted Time PHQ-9 Depression Total Score: 3 10/20/20 24 1:24 PM EST documented as of this encounter Care Teams Apparel Sales Leader Relationship Specialty Start Date End Date Zofia Pascual MD [address] [place] [address] PCP - General Family Medicine 03/07/24 documented as of this encounter
--- OUTSIDE RECORDS SUMMARY | 2025-02-19 13:01 | XMS_ITS | Encounter Summary ---
Author Organization [employer] Address [address] [facility] [address] [place] [address] Care Team Providers Care Rn Clinical Trials Name Role Phone Zofia Pascual MD Primary Care Provider [phone] Encounter Details Date Type Department Care Team (Late st Contact Info) Description 03/06/2024 Orders Only [facility] [address] [place] [address] Provider, MD Candice Social History Tobacco Use Types Packs/Day Years Used Date Smoking Tobacco: Never Assessed Depression Answer Date Recorded Patient Health Questionnaire-9 Score 15 03/07/2024 Patient Health Questionnaire-9 Score 15 03/07/2024 Last PHQ-9: Questionnaire Data Not on file 0 03/07/2024 Depression Answer Date Recorded Patient Health Questionnaire-2 Score 3 03/07/2024 Sex and Gender Information Value Date Recorded Sex Assigned at Male 03/06/2024 9:37 AM EDT Legal Sex Male 3:04 PM EDT Gender Identity Male 03/06/2024 9:37 AM EDT Sexual Orientation Straight 03/06/2024 9: 37 AM EDT documented as of this encounter Plan of Treatment Not on file documented as of this encounter Procedures Procedure Name Priority Date/Time Associated Diagnosis Comments VITAMIN D,25-OH,TOTAL,IA Routine 03/21/2024 11:55 AM EDT CBC WITH AUTO DIFFERENTIAL Routine 03/21/2024 11:55 AM EDT LIPID PANEL, STANDARD Routine 03/21/2024 11:55 AM EDT COMPREHENSIVE METABOLIC PANEL, FASTING Routine 03/07/2024 3:39 PM EDT T4, FREE Routine 03/07/2024 3:39 PM EDT XR CHEST 2 VIEWS Routine 02/07/2024 10:1 7 AM EDT documented in this encounter Results * (ABNORMAL) Vitamin D, 25-Hydroxy, Total, Immunoassay (03/21/2024 11:55 AM EDT) Vitamin D 25-OH Total 19.1(L) >30 ng/mL [facility] Comment:Health Based Referen ce Values*< 20 ng/mL [id number] ng/mL Insufficient> 30 ng/mL Sufficient*Indu DIAZ. N Engl J Med. 2007;357:266-280Care must be taken in interpreting Vitamin D results fromdifferent laboratories and methodologies. Published datademonstrated that results from patients undergoinghemodialysis may show a negative bias when tested withvarious automated 25-OH vitamin D assays when compared toLC-MS/MS.When testing samples from patients whose predominant form ofVitamin D is Vitamin D2, such as patients receiving VitaminD2 supplementation, results that are subtherapeutic shouldbe confirmed with another method such as LC-MS/MS. 03/21/2024 11:5 5 AM EDT 03/21/2024 11:55 AM EDT us Zofia Pascual MD LAB BLOOD ORDERABLES Final Re sult [facility] [address] [place] [phone] * (ABNORMAL) Lipid Panel, Standard (03/21/2024 11:55 AM EDT) Triglycerides 80 <150 mg/dL [facility] Comment:Desirable Triglyceri de: less than 150 mg/dLBorderline High Triglyceride 150-199 mg/dLHigh Triglyceride: 200-499 mg/dLVery High Triglyceride: greater than or equal to 5OO mg/dL Cholesterol 160 <200 mg/dL [facility] Comment:Desirable Cholestero l: less than 200 mg/dLBorderline High Cholesterol: 200-239 mg/dLHigh Cholesterol: greater than 239 mg/dL LDL Cholesterol Calculated 100(H) <100 mg/dL [facility] Comment:Desirable LDL: less than 100 mg/dLNear Optimal/Above Optimal LDL: 110- 129 mg/dLBorderline High LDL: 130-159 mg/dLHigh LDL: 160-189 mg/dLVery High LDL: greater than or equal to 190 mg/dL HDL Cholesterol 44 >40 mg/dL [facility] Comment:Desirable HDL: great er than 40 mg/dL Note: This HDL assay may give artificially low results in patients with liver disease. 03/21/2024 11:5 5 AM EDT 03/21/2024 11:55 AM EDT us Zofia Pascual MD LAB BLOOD ORDERABLES Final Re sult [facility] [address] [place] [phone] * CBC auto differential (03/21/2024 11:55 AM EDT) White Blood Count 6.3 4.8 - 10.8 X10*3/uL [facility] Red Blood Count 5.08 4.60 - 5.80 X10*6/uL [facility] Hemoglobin 15.5 14.0 - 18.0 g/dl [facility] Hematocrit 46.3 42.0 - 52.0 % [facility] Mean Corpuscular Volume 91.1 80.0 - 98.0 fL [facility] Mean Corpuscular Hemoglobin 30.5 27.0 - 33.0 pg [facility] Mean Corpuscular HGB Conc 33.5 31.0 - 36.0 g/dl [facility] Red Cell Distribution Width 12.9 11.0 - 16.0 % [facility] Platelet Count 235 160 - 400 X10*3/uL [facility] Mean Platelet Volume 10.6 9.4 - 12.4 fL [facility] Neutrophils Percent Auto 67.0 45 - 73 % [facility] Imm Gran Pct Auto 0.3 0.0 - 0.4 % [facility] Lymphocytes Percent Auto 23.7 20 - 40 % [facility] Monocytes Percent Auto 7.7 2 - 11 % [facility] Eosinophils Percent Auto 1.0 0 - 4 % [facility] Basophils Percent Auto 0.3 0 - 2 % [facility] NRBC Pct Auto 0.0 0.0 - 0.2 /100WBC [facility] Neutrophils Absolute Auto 4.2 2.0 - 8.3 x10*3/uL [facility] Imm Gran Abs Auto 0.02 0.00 - 0.03 X10*3/uL [facility] Lymphocytes Absolute Auto 1.5 1.2 - 4.9 X10*3/uL [facility] Monocytes Absolute Auto 0.5 0.1 - 1.2 X10*3/uL [facility] Eosinophils Absolute Auto 0.1 0.0 - 0.4 X10*3/uL [facility] Basophils Absolute Auto 0.0 0.0 - 0.2 X10*3/uL [facility] NRBC Abs Auto 0.000 0.0 - 0.012 X10*3/uL [facility] 03/21/2024 11:5 5 AM EDT 03/21/2024 11:55 AM EDT us Zofia Pascual MD LAB BLOOD ORDERABLES Final Re sult [facility] [address] [place] [phone] * (ABNORMAL) T4, Free (03/07/2024 3:39 PM EDT) Free T4 (Free Thyroxine) 0.70(L) 0.71 - 1.85 ng/dL [facility] 03/07/2024 3:39 PM EDT 03/07/2024 5:41 PM EDT us Zofia Pascual MD LAB BLOOD ORDERABLES Final Re sult [facility] [address] [place] [phone] * (ABNORMAL) Comprehensive Metabolic Panel, Fasting (03/07/2024 3:39 PM EDT) Sodium 138 135 - 145 mmol/L [facility] Potassium 4.0 3.3 - 5.1 mmol/L [facility] Chloride 104 96 - 108 mmol/L [facility] Carbon Dioxide 24 22 - 29 mmol/L [facility] Anion Gap 14 12 - 20 [facility] Urea Nitrogen (BUN) 10 9 - 16 mg/dL [facility] Creatinine, Serum 0.81 0.5 - 1.4 mg/dL [facility] Estimated Glomerular Filt Rate >60 [facility] Comment:NOTE: For -Am erican individuals, multiply the result by 1.210.Chronic Kidney Disease: Estimated GFR < 60 mL/min/[id number] Kidney Disease: Estimated GFR < 15 mL/min/1.73m2 Glucose Fasting 94 60 - 99 mg/dL [facility] Calcium 9.7 8.4 - 10.2 mg/dL [facility] Bilirubin, Total 0.5 0.0 - 1.0 mg/dL [facility] Aspartate Amino Transferase 33 5 - 37 U/L [facility] Alanine Aminotransferase 48(H) 0 - 40 U/L [facility] Total Protein 8.2(H) 6.5 - 8.0 g/dL [facility] Albumin Level 4.0 3.5 - 5.0 g/dL [facility] Alkaline Phosphatase 92 39 - 117 U/L [facility] 03/07/2024 3:39 PM EDT 03/07/2024 5:41 PM EDT us Zofia Pascual MD LAB BLOOD ORDERABLES Final Re sult [facility] [address] [place] [phone] * XR Chest 2 Views (02/07/2024 10:17 AM EDT) Anatomical Region Laterality Modality Chest Radiographic Concepcion ging us Historical Provider IMG XR PROCEDURES Final R esult documented in this encounter Visit Diagnoses Not on filedocumented in this encounter Care Teams Rn Clinical Trials Relationship Specialty Start Date End Date Zofia Pascual MD [address] [place] [address] PCP - General Family Medicine 03/07/24 documented as of this encounter
--- OUTSIDE RECORDS SUMMARY | 2025-02-19 13:01 | XMS_ITS | Clinical Summary ---
Author Organization [employer] Address [address] [facility] 7[address] [place] [address] Care Team Providers Care Title Closer Name Role Phone Zofia Pascual MD Primary Care Provider [phone] Allergies Active Allergy Reactions Criticality Noted Date Comments Penicillins Swelling,Rash Medium 03/07/2024 Medications * This document contains information received from the source organization and may not represent a complete record from that organization. albuterol 108 (90 Base) MCG/ACT inhaler Inhale 2 puffs every 4 (four) hours if needed for wheezing. 18 g 2 4 03/07/20 25 Active cholecalciferol (Vitamin D-3) 50 MCG (1999 UT) capsule Take 1 capsule (50 mcg) by mouth Once per day. 120 capsule 3 4 Active levothyroxine (Synthroid) 50 MCG tablet Take 1 tablet (50 mcg) by mouth before breakfast. 90 tablet 1 4 Active pantoprazole (ProtoNix) 40 MG EC tablet Take 1 tablet by mouth before breakfast. 5 04/23/20 25 Active GaviLAX 17 GM/SCOOP powder MIX 1 PACKET INTO BEVERAGE AND TAKE BY MOUTH ONCE EVERY DAY 5 Active simethicone (Mylicon) 80 MG chewable tablet Chew 1 tablet every 6 (six) hours if needed for flatulence. 5 Active ursodiol (Actigall) 300 MG capsule Take 1 capsule by mouth 2 times daily. 5 07/22/20 25 Active Wheat Dextrin (benefiber drink mix) packet Take 1 packet by mouth Once per day. 5 Active acetaminophen (Tylenol) 500 MG tablet Take 2 tablets by mouth every 8 (eight) hours. 5 Active triamcinolone (Kenalog) 0.1 % creamIndications :Contact dermatitis due to other agent, unspecified contact dermatitis type Apply topically if needed in the morning and at bedtime (pain and swelling). 30 g 5 Active ciprofloxacin (Cipro) 500 MG tablet Take 1 tablet by mouth 2 times daily. 5 02/12/20 25 metroNIDAZOLE (Flagyl) 500 MG tablet Take 1 tablet by mouth 3 times daily. 5 02/12/20 25 ondansetron (Zofran) 4 MG tablet Take 1 tablet by mouth every 8 (eight) hours if needed for nausea or vomiting. 5 02/15/20 25 Active Problems Problem Noted Date Diagnosed Date Physical exam 10/20/2024 Assessment & Plan (10/20/2024 2:00 PM EST): Ordering lab work for further evaluation. Pt declined influenza and covid vaccination today. Asked patient to bring medical records of most recent labs. Discussed medication refills as needed. 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 Begin Synthroid for thyroid. Relevant Medications Levothyroxine (Synthroid) 50 MCG Tablet Dizziness 03/27/2024 Gynecomastia, male 03/27/2024 Assessment & Plan (03/27/2024 3:34 PM EDT): Ordering US of Left Breast for further evaluation. F/u in 3 months. Class 3 severe obesity due t o excess calories with serious comorbidity and body mass index (BMI) of 40.0 to 44.9 in adult 03/07/2024 Assessment & Plan (10/20/2024 1:57 PM EST): Ordering lab work for further evaluation. Assessment & Plan (03/07/2024 4:17 PM EDT): Discussed weight management treatment and dietary counseling. Ordering lab work for further evaluation. Sleep apnea 03/07/2024 Assessment & Plan (03/07/2024 4:15 PM EDT): Ordering Home Sleep test for further investigation. Positive screening for depre ssion on 9-item Patient Health Questionnaire (PHQ-9) 03/07/2024 Assessment & Plan (03/07/2024 4:17 PM EDT): Referring to Therapist for depression. Ocular proptosis 03/07/2024 Moderate episode of recurrent major depressive d isorder 03/07/2024 Assessment & Plan (03/14/2024 9:20 AM EDT): During IBH Consult Clive presenting with depressed mood, loss of interests/pleasure , changes in sleep restless, unsatisfying sleep, change in appetite or weight overeating, psychomotor retardation, trouble concentrating, thoughts of worthlessness or guilt, fatigue/loss of energy, inappropriate guilt , hopelessness, worthlessness , difficulty concentrating, excessive worry/anxiety, difficulty controlling worry, restless/keyed up/On edge, easily fatigued, difficulty concentrating/Mind going blank , irritability, and sleep disturbance restless, unsatisfying sleep, and palpitations, trembling/shaking, sensation of shortness of breath/smothering, Chest pain/discomfort, dizzy/unsteady/light-headed/faint, Persistent concern/worry of panic attacks or their consequences; for a period of 18+ mo, for all symptoms in the context of family issues. Clive has been experiencing sxs on and off over the last years. Severe sense of isolation and history of trauma identified as triggers. PLAN: (check all that apply) Further services needed, but declined . Pt declined OP referral and will let clinician know if he changes his mind. Information to contact provided. [facility] information given. Scheduled follow-up w clinician to assess sxs and progress. Anxiety 03/07/2024 Assessment & Plan (03/14/2024 9:20 AM EDT): During IBH Consult Clive presenting with depressed mood, loss of interests/pleasure , changes in sleep restless, unsatisfying sleep, change in appetite or weight overeating, psychomotor retardation, trouble concentrating, thoughts of worthlessness or guilt, fatigue/loss of energy, inappropriate guilt , hopelessness, worthlessness , difficulty concentrating, excessive worry/anxiety, difficulty controlling worry, restless/keyed up/On edge, easily fatigued, difficulty concentrating/Mind going blank , irritability, and sleep disturbance restless, unsatisfying sleep, and palpitations, trembling/shaking, sensation of shortness of breath/smothering, Chest pain/discomfort, dizzy/unsteady/light-headed/faint, Persistent concern/worry of panic attacks or their consequences; for a period of 18+ mo, for all symptoms in the context of family issues. Clive has been experiencing sxs on and off over the last years. Severe sense of isolation and history of trauma identified as triggers. PLAN: (check all that apply) Further services needed, but declined . Pt declined OP referral and will let clinician know if he changes his mind. Information to contact provided. [facility] information given. Scheduled follow-up w clinician to assess sxs and progress. Encounters Date Type Department Care Team Description 02/19/2025 Telephone [facility] PEDIATRICS [address] [place] [phone] Lina Caba MD critical result 02/15/2025 10:00 AM EDT Office Visit [facility] MED & PEDS [address] [place] [address] Lina aCba MD Other specified hypothyroidism (Primary Dx); Right-sided chest wall pain; Tachycardia; Contact dermatitis due to other agent, unspecified contact dermatitis type 02/15/2025 Travel 02/08/2025 Patient Outreach [facility] MEDICINE [address] [place] [phone] Zofia Pascual MD Care Coordination (CH[facility] outreach for SDOH PT-1 and food needs-referral completed /) 02/08/2025 Patient Outreach [facility] [address] [place] [phone] Zofia Pascual MD Transition Of Care (Tcm) (HDF scheduled and SDOH screening positive and Tobacco screening negative) 02/06/2025 Orders Only [facility] [address] [place] [address] Candice Norris MD 02/05/2025 Orders Only [facility] MED & PEDS [address] [place] [address] Candice Norris MD 01/23/2025 Telephone [facility] MED & PEDS [address] [place], [place] [phone] Regina Barry MD Care Coordination 01/22/2025 Orders Only [facility] [address] [place] [address] Candice Norris MD 01/19/2025 Population Health Risk Score [facility] () Department [address] [place] [phone] Provider, Population Health Generic 12/11/2024 Orders Only GENERIC EXTERNAL DATA DEPARTMENT Provider, Generic External Data from Last 3 Months Immunizations Name Administration Dates Next Due Tdap 02/12/2021 Family History Medical History Relation Name Comments Arthritis Father Diabetes Father Hypertension Father Lupus Father Arthritis Mother Diabetes Mother Hypertension Mother Relation Name Status Comments Father Mother Social History Tobacco Use Types Packs/Day Years Used Date Smoking Tobacco: Never Passive Smoke Exposure: Never Smokeless Tobacco: Never Tobacco Cessation:Counseling Given: Not Answered Alcohol Use Standard Drinks/Week Comments Yes 0 [...] Orientation Straight 03/06/2024 9: 37 AM EDT Last Filed Vital Signs Vital Sign Reading [...] Mass Index 44.99 02/15/2025 10:12 AM EDT Plan of Treatment Health Maintenance Due Date Last Done Comments Alcohol/Substance Use Screening 2002 Family Planning (PISQ) 2005 Influenza Vaccine (#1) 2025 Postp oned from 07/09/2024 (Patient Refused) COVID-19 Vaccine (2023-12 5 season) 2025 04/08/2021, 03/11/2021 Postponed from 07/09/2024 (Patient Refused) Depression Screening 10/20/2025 10/20/2024, 10/20/2024 SDOH Screening 02/08/2026 02/08/2025 Tobacco Screening 02/15/2026 02/15/2025 Lipid Panel 03/21/2029 03/21/2024, 03/07/2024 DTaP/Tdap/Td Vaccines (2 - T d or Tdap) 02/12/2031 02/12/2021 Zoster Vaccines (1 of 2) 2040 RSV Patients and Patients Aged 60 years or older (1 - 1-dose 75+ series) 2065 HIV Screening Completed 10/23/2024 Hepatitis C Screening Completed 10/23/2024 HIB Vaccines Aged Out No longer eligi ble based on patient's age to complete this topic HPV Vaccines Aged Out No longer eligi ble based on patient's age to complete this topic Hepatitis A Vaccines Aged Out No long er eligible based on patient's age to complete this topic Hepatitis B Vaccines Discontinued IPV Vaccines Aged Out No longer eligi ble based on patient's age to complete this topic Meningococcal Vaccine Aged Out No gloria mar eligible based on patient's age to complete this topic Pneumococcal Vaccine: Pediatrics (0 to 5 Years) and At-Risk Patients (6 to 49) Years) Aged Out No longer eligible b ased on patient's age to complete this topic RSV under 20 months Aged Out No longe r eligible based on patient's age to complete this topic Rotavirus Vaccines Aged Out No longer eligible based on patient's age to complete this topic Procedures Procedure Name Priority Date/Time Associated Diagnosis Comments CBC WITH AUTO DIFFERENTIAL Routine 02/19/2025 11:08 AM EDT Other specified hypothyroidism COMPREHENSIVE METABOLIC PANEL Routine 02/19/2025 11:08 AM EDT Other specified hypothyroidism D DIMER HIGH SENSITIVITY Routine 02/19/2025 11:08 AM EDT Other specified hypothyroidism CT ABDOMEN PELVIS W CONTRAST Routine 02/05/2025 9:[address] CHEST ANGIO W AND WO IV CONTRAST Routine 02/03/2025 10:10 AM EDT ECG 12-LEAD Routine 02/03/2025 10:03 AM EDT XR CHEST 2 VIEWS Routine 01/22/2025 2:28 PM EDT SARS COV2/INFLUENZA A/B AND RSV RNA QL NAAT Routine 12/11/2024 4:51 PM EST HEPATITIS C AB W/REFL TO HCV RNA, QN, PCR Routine 10/23/2024 8:54 AM EST Physical exam HIV 1/2 ANTIGEN/ANTIBODY, FOURTH GENERATION W/RFL Routine 10/23/2024 8:54 AM EST Physical exam LIPID PANEL, STANDARD Routine 03/21/2024 11:55 AM EDT from Last 3 Months or Most Recently Relevant to Health Maintenance Results * D Dimer High Sensitivity (02/19/2025 11:08 AM EDT) Pathologist [facility] D Dimer High Sensitivity 1,105 NG/ML [facility] Comment:Results of D DIMER c alled [...] Caba MD LAB BLOOD ORDERABLES Final Result [facility] [address] [place], [place] [phone] * (ABNORMAL) CBC auto differential (02/19/2025 11:08 AM EDT) [facility] White Blood Count 11.7(H) 4.8 - 10.8 X10*3/uL [facility] Red Blood Count 4.60 4.60 - 5.80 X10*6/uL [facility] Hemoglobin 14.2 14.0 - 18.0 g/dl [facility] Hematocrit 42.9 42.0 - 52.0 % [facility] Mean Corpuscular Volume 93.3 80.0 - 98.0 fL [facility] Mean Corpuscular Hemoglobin 30.9 27.0 - 33.0 pg [facility] Mean Corpuscular HGB Conc 33.1 31.0 - 36.0 g/dl [facility] Red Cell Distribution Width 12.9 11.0 - 16.0 % [facility] Platelet Count 568(H) 160 - 400 X10*3/uL [facility] Mean Platelet Volume 9.9 9.4 - 12.4 fL [facility] Neutrophils Percent Auto 81.2(H) 45 - 73 % [facility] Imm Gran Pct Auto 0.4 0.0 - 0.4 % [facility] Lymphocytes Percent Auto 11.3(L) 20 - 40 % [facility] Monocytes Percent Auto 6.1 2 - 11 % [facility] Eosinophils Percent Auto 0.7 0 - 4 % [facility] Basophils Percent Auto 0.3 0 - 2 % [facility] NRBC Pct Auto 0.0 0.0 - 0.2 /100WBC [facility] Neutrophils Absolute Auto 9.5(H) 2.0 - 8.3 x10*3/uL [facility] Imm Gran Abs Auto 0.05(H) 0.00 - 0.03 X10*3/uL [facility] Lymphocytes Absolute Auto 1.3 1.2 - 4.9 X10*3/uL [facility] Monocytes Absolute Auto 0.7 0.1 - 1.2 X10*3/uL [facility] Eosinophils Absolute Auto 0.1 0.0 - 0.4 X10*3/uL [facility] Basophils Absolute Auto 0.0 0.0 - 0.2 X10*3/uL [facility] NRBC Abs Auto 0.000 0.0 - 0.012 X10*3/uL [facility] Blood Venous blood specimen / Unknown 02/19/2025 11:08 AM EDT 02/19/2025 11:11 AM EDT Result [facility] Lina Caba MD LAB BLOOD ORDERABLES Final Result [facility] [address] [place] [phone] * CT Abdomen Pelvis w/ Contrast (02/05/2025 9:43 AM EDT) Anatomical Region Laterality Modality Body, Pelvis, Abdomen Computed T omography Result [facility] Historical Provider IMG CT PROCEDURES Final R esult * CT CHEST ANGIO W AND WO IV CONTRAST (02/03/2025 10:10 AM EDT) Anatomical Region Laterality Modality Computed Tomogra phy Result [facility] Provider IMG CT PROCEDURES Final R esult * ECG 12 lead (02/03/2025 10:03 AM EDT) Result [facility] Historical Provider ECG ORDERABLES Final Res ult * XR Chest 2 Views (01/22/2025 2:28 PM EDT) Anatomical Region Laterality Modality Chest Radiographic Concepcion ging Result [facility] Historical Provider IMG XR PROCEDURES Final R esult * SARS-CoV-2 RNA, Influenza A/B, and RSV RNA, Ql NAAT (12/11/2024 4:51 PM EST) Influenza A PCR NEGATIVE Negative [facility] Influenza B PCR NEGATIVE Negative [facility] Resp Syncy Virus RNA Qual PCR NEGATIVE Negative [facility] SARS COV2 PCR NEGATIVE Negative [facility] Comment:All test results mus t be correlated with clinical findings.Negative results do not preclude SARS-CoV2, influenza Avirus, influenza B virus and/or RSV infectionand should not be used as the sole basis for treatment orother patient management decisions. Negative results must becombined with clinical observations, patient history, andepidemiological information.This test has not been evaluated for monitoring treatment ofinfection.This test has been authorized by the FDA under an EmergencyUse Authorization (EUA) for use by authorized laboratories.Testing performed on the [email or web address] GeneXpert utilizingreal-time RT-PCR.All SARS CoV2 and positive influenza A/B results arereported to [facility]. 12/11/2024 4:51 PM EST 12/11/2024 4:54 PM EST us Generic External Data Provider LAB MICROBIOLOGY - GENERAL ORDERABLES Final Result Performing Organization Address [facility]/ZIP Co de Phone Number [facility] [address] [place] [phone] * Hepatitis C Antibody with Reflex to HCV, RNA, Quantitative, Real-Time PCR (10/23/2024 8:54 AM EST) Hepatitis C Antibody Nonreactive Nonreactive [facility] Comment:Antibodies to HCV no t detected; does not exclude early acuteHCV infection. Blood Venous blood specimen / Unknown 10/23/2024 8:54 AM EST 10/23/2024 2:01 PM EST Zofia Pascual MD LAB BLOOD ORDERABLES Final Re sult Performing Organization Address [facility] Co de Phone Number [facility] [address] [place] [phone] * HIV-1/2 Antigen and Antibodies, Fourth Generation, with Reflexes (10/23/2024 8:54 AM EST) HIV AB/AG Nonreactive Nonreactive [facility] Comment:HIV-1 p24 Ag and/or HIV-1/HIV-2 Ab not detected.A test result that is nonreactive does not exclude thepossibility of exposure to or infection with HIV-1 and/orHIV-2. Nonreactive results in this assay for individualswith prior exposure to HIV-1 and/or HIV-2 may be due toantigen and antibody levels that are below the limit ofdetection of this assay.The [employer] HIV Ag/Ab Combo assay result andsupplemental assay results should be interpreted inconjunction with the patient's clinical presentation,history and other laboratory results. If the results areinconsistent with clinical evidence, additional testing issuggested to confirm the result. Blood Venous blood specimen / Unknown 10/23/2024 8:54 AM EST 10/23/2024 2:01 PM EST us Zofia Pascual MD LAB BLOOD ORDERABLES Final Re sult Performing Organization Address [facility] Co de Phone Number [facility] [address] [place] [phone] * (ABNORMAL) Lipid Panel, Standard (03/21/2024 11:55 AM EDT) Triglycerides 80 <150 mg/dL [facility] Comment:Desirable Triglyceri de: less than 150 mg/dLBorderline High Triglyceride 150-199 mg/dLHigh Triglyceride: 200-499 mg/dLVery High Triglyceride: greater than or equal to 5OO mg/dL Cholesterol 160 <200 mg/dL [facility] Comment:Desirable Cholestero l: less than 200 mg/dLBorderline High Cholesterol: 200-239 mg/dLHigh Cholesterol: greater than 239 mg/dL LDL Cholesterol Calculated 100(H) <100 mg/dL [facility] Comment:Desirable LDL: less than 100 mg/dLNear Optimal/Above Optimal LDL: 110- 129 mg/dLBorderline High LDL: 130-159 mg/dLHigh LDL: 160-189 mg/dLVery High LDL: greater than or equal to 190 mg/dL HDL Cholesterol 44 >40 mg/dL [facility] Comment:Desirable HDL: great er than 40 mg/dL Note: This HDL assay may give artificially low results in patients with liver disease. 03/21/2024 11:5 5 AM EDT 03/21/2024 11:55 AM EDT us Zofia Pascual MD LAB BLOOD ORDERABLES Final Re sult Performing Organization Address [facility] Co de Phone Number [facility] [address] [place] [phone] from Last 3 Months or Most Recently Relevant to Health Maintenance Insurance [facility] C3 Care Teams Title Closer Relationship Specialty Start Date End Date Zofia Pascual MD [address] [place] [phone] PCP - General Family Medicine 03/07/24
--- OUTSIDE RECORDS SUMMARY | 2025-02-19 13:01 | XMS_ITS | Encounter Summary ---
Author Organization [facility] Address [address] [place] [address] Care Team Providers Care Dispatcher Street Department Name Role Phone Zofia Pascual MD Primary Care Provider [phone] Reason for Visit * Reason Onset Date Comments Advice Only 01/23/2025 Call from [facility] Encounter Details Date Type Department Care Team ([facility] st Contact Info) Description 01/23/2025 Telephone Bariatric Surgery - [place] [address] [place] [phone] Joe De Guzman MD [address] [place] [address] Advice Only (Call from [facility]) Social History Tobacco Use Types Packs/Day Years Used Date Smoking Tobacco: Never Assessed Sex and Gender Information Value Date Recorded Sex Assigned at Male 02/02/2025 9:11 AM EDT Legal Sex Male 11:03 AM EDT Gender Identity Male 02/02/2025 9:11 AM EDT Sexual Orientation Straight 02/02/2025 9: 11 AM EDT documented as of this encounter Progress Notes * ANJUM Mcfarland - 01/23/2025 2:25 PM EDT Attempted to call back Was on hold x15 mins Have patients this afternoon We are looking into the CXR and mgmt * Mariann Walker - 01/23/2025 11:47 AM EDT [facility] called to ask if we were going to follow up with ordering the patient an echo in reference to patient CXR results completed 01/22? Please advise at [phone] ask for nurse Kylah. documented in this encounter Plan of Treatment Upcoming Encounters Date Type Department Care Team (Late st Contact Info) Description 02/20/2025 11:30 AM EDT Office Visit Bariatric Surgery [facility] [address] [place] [phone] Jessy Gorman PA [address] [address] 03/06/2025 10:30 AM EDT Telemedicine Bariatric Surgery - [place] [address] [phone] [address] 04/05/2025 11:15 AM EDT Office Visit Bariatric Surgery [facility] [address] [phone] Jessy Gorman PA [address] [address] documented as of this encounter Visit Diagnoses Not on filedocumented in this encounter Care Teams Dispatcher Street Department Relationship Specialty Start Date End Date Zofia Pascual MD [address] [place] [address] PCP - General Family Medicine 09/28/24 documented as of this encounter
--- OUTSIDE RECORDS SUMMARY | 2025-02-19 13:01 | XMS_ITS | Encounter Summary ---
Author Organization [employer] Address [address] [place] [address] Care Team Providers Care Petroleum Sampler Name Role Phone Zofia Pascual MD Primary Care Provider Encounter Details Date Type Department Care Team ([facility] st Contact Info) Description 09/13/2024 Telephone [facility] [address] [place] [address] Zofia Pascual MD [address] [place] [address] Social History Tobacco Use Types Packs/Day Years Used Date Smoking Tobacco: Never Passive Smoke Exposure: Never Smokeless Tobacco: Never Alcohol Use Standard Drinks/Week Comments Yes 0 (1 standard drink = 0.6 oz pur e alcohol) Depression Answer Date Recorded Patient Health Questionnaire-9 Score 15 03/07/2024 Patient Health Questionnaire-9 Score 15 03/07/2024 Last PHQ-9: Questionnaire Data Not on file 0 03/07/2024 Housing Stability Answer Date Recorded What is your housing situation today? I have pooja valdez 03/20/[address] you li [...] Assessment Noted Time PHQ-9 Depression Total Score: 15 024 2:20 PM EDT documented as of this encounter Care Teams Petroleum Sampler Relationship Specialty Start Date End Date Zofia Pascual MD [address] [place] [phone] PCP - General Family Medicine 03/07/24 documented as of this encounter
--- OUTSIDE RECORDS SUMMARY | 2025-02-19 13:01 | XMS_ITS | Encounter Summary ---
Author Organization [employer] Address [address] [place] [address] Care Team Providers Care Specimen Preparation Assistant Name Role Phone Zofia Pascual MD Primary Care Provider [phone] Encounter Details Date Type Department Care Team (Latest Contact Info) Description 02/15/2025 Travel Social History Tobacco Use Types Packs/Day Years [...] documented as of this encounter Care Teams Specimen Preparation Assistant Relationship Specialty Start Date End Date Zofia Pascual MD [address] [place] [address] PCP - General Family Medicine 03/07/24 documented as of this encounter
--- OUTSIDE RECORDS SUMMARY | 2025-02-19 13:01 | XMS_ITS | Clinical Summary ---
Author Organization 175 [facility] Address [address] [place] [address] Phone Care Team Providers Care Textile Chemist Name Role Phone Zofia Pascual MD Primary Care Provider [phone] Allergies Active Allergy Reactions Criticality Noted Date Comments Amoxicillin Rash 03/13/2024 Medications acetaminophen (TYLENOL) 500 mg tablet Take 2 tablets (1,000 mg total) by mouth every 8 (eight) hours. 180 tablet 5 Active pantoprazole (PROTONIX) 40 mg EC tablet Take 1 tablet (40 mg total) by mouth 1 (one) time each day before breakfast. Do not crush, chew, or split. 30 each 2 5 025 Active polyethylene glycol (MIRALAX) 17 gram packet Take 17 g by mouth 1 (one) time each day. 510 g 5 025 Active simethicone (MYLICON) 80 mg chewable tablet Chew 1 tablet (80 mg total) every 6 (six) hours if needed for flatulence. 120 tablet 5 Active ursodioL (ACTIGALL) 300 mg capsule Take 1 capsule (300 mg total) by mouth 2 (two) times a day. 60 each 5 5 025 Active wheat dextrin 3 gram/3.5 gram powder in packet Take 1 packet by mouth 1 (one) time each day. 30 packet 5 Active traMADoL (ULTRAM) 50 mg tablet Take 1 tablet (50 mg total) by mouth every 6 (six) hours if needed for moderate pain. Max Daily Amount: 200 mg 10 tablet 5 Active ciprofloxacin (CIPRO) 500 mg tablet Take 1 tablet (500 mg total) by mouth 2 (two) times a day. 5 each 5 Active metroNIDAZOLE (FLAGYL) 500 mg tablet Take 1 tablet (500 mg total) by mouth 3 (three) times a day. Do not use mouth wash or consume alcohol until 48 hours after last dose 7 tablet 5 Active ondansetron (ZOFRAN) 4 mg tablet Take 1 tablet (4 mg total) by mouth every 8 (eight) hours if needed for nausea or vomiting for up to 7 days. 21 tablet 5 025 Discontinued ondansetron (ZOFRAN) 4 mg tablet Take 1 tablet (4 mg total) by mouth every 8 (eight) hours if needed for nausea or vomiting for up to 7 days. 21 tablet 5 025 Active Problems Problem Noted Date Diagnosed Date Morbid obesity ([facility] V24, [facility] V28) 2024 Class 3 severe obesity with body mass index (BMI) of 40.0 to 44.9 in adult 10/02/2024 Asthma 05/01/2024 GERD (gastroesophageal reflux disease) 4 HTN (hypertension) 05/01/2024 Encounters Date Type Department Care Team Description 02/13/2025 4:30 PM EDT Office Visit Bariatric Surgery [address] [phone] Joe De Guzman MD S/P laparoscopic sleeve gastrectomy (Primary Dx) 02/09/2025 Telephone Bariatric Surgery [address] [phone] Jasmin Beaver RN 02/02/2025 11:00 AM EDT - 02/02/2025 1:00 PM EDT Surgery [facility] OR [address] [place] [phone] Joe De Guzman MD DAVINCI SLEEVE GASTRECTOMY [[id number] (CPT??)] 02/02/2025 10:38 AM EDT Anesthesia Event [facility] OR [address] [place] [phone] Christopher Barone MD Vermes, Rachie, CRNA 02/02/2025 9:13 AM EDT - 02/07/2025 6:52 PM EDT Hospital Encounter [facility] Surgical Unit [address] [place] [phone] Joe De Guzman MD Hypoxia (Primary Dx); Morbid obesity ([facility]/HCC V24, [facility] V28) Discharge Disposition: Home or Self Care 01/23/2025 1:45 PM EDT Consult Bariatric Surgery - [address] [phone] Jessy Gorman PA Class 3 severe obesity due to excess calories with serious comorbidity and body mass index (BMI) of 40.0 to 44.9 in adult (CMS/HCC V24, [facility] V28) (Primary Dx) 01/23/2025 Telephone Bariatric Surgery [address] [phone] Joe De Guzman MD Advice Only (Call from [facility]) 01/22/2025 11:24 AM EDT - 01/22/2025 11:59 PM EDT Hospital Encounter [facility] Xray [address] [place] [phone] Discharge Disposition: Home or Self Care 01/22/2025 11:00 AM EDT Pre-Admission Testing [facility] Pre-Admission Testing [address] [place] [phone] Morbid obesity ([facility]/HCC V24, [facility] V28) 01/11/2025 8:15 AM EST Office Visit Bariatric Surgery [address] [phone] Joe De Guzman MD Class 3 severe obesity due to excess calories with body mass index (BMI) of 40.0 to 44.9 in adult, unspecified whether serious comorbidity present (CMS/HCC V24, [facility] V28) (Primary Dx) 01/05/2025 9:30 AM EST Nutrition Bariatric Surgery - [address] [place] [phone] Class 3 severe obesity with body mass index (BMI) of 40.0 to 44.9 in adult, unspecified obesity type, unspecified whether serious comorbidity present ([facility] V24, [facility] V28) (Primary Dx) from Last 3 Months Surgical History Surgery Date Site/Laterality Comments NO PAST SURGERIES Medical History Medical History Date Comments Sleep apnea Asthma Hypertension Morbid obesity ([facility] V24, [facility] V28) Social History Tobacco Use Types Packs/Day Years Used Date Smoking Tobacco: Never Tobacco Cessation:Counseling Given: Not Answered Alcohol Use Standard Drinks/Week Comments Not Currently 0 (1 standard drink = 0.6 oz pur e alcohol) Interpersonal Safety Answer Date Record ed Physical Abuse 02/02/2025 Verbal Abuse 02/02/2025 Sex and Gender Information Value Date Recorded Sex Assigned at Male 02/02/2025 9:11 AM EDT Legal Sex Male 11:03 AM EDT Gender Identity Male 02/02/2025 9:11 AM EDT Sexual Orientation Straight 02/02/2025 9: 11 AM EDT Obstetrics History Last Filed Vital Signs Vital Sign Reading Time Taken Comments Blood Pressure 118/73 02/13/2025 4:19 PM EDT Pulse 88 02/13/2025 4:19 PM EDT Temperature 36.6 ??C (97.8 ??F) 02/13/2025 4:19 PM ED T Respiratory Rate 17 02/07/2025 3:07 PM EDT Oxygen Saturation 94% 02/07/2025 3:07 PM EDT Inhaled Oxygen Concentration - - Weight 135 kg (297 lb) 02/13/2025 4:19 PM EDT Height 180.3 cm (5' 11 ) 02/13/2025 4:19 PM EDT Body Mass Index 41.42 02/13/2025 4:19 PM EDT Plan of Treatment Upcoming Encounters Date Type Department Care Team (Late st Contact Info) Description 02/20/2025 11:30 AM EDT Office Visit Bariatric Surgery - [place] [address] [phone] Jessy Gorman PA [address] [phone] 03/06/2025 10:30 AM EDT Telemedicine Bariatric Surgery - [place] [address] [phone] Catrachita Garcia, CHING [address] [phone] 04/05/2025 11:15 AM EDT Office Visit Bariatric Surgery - [place] [address] [phone] Jessy Gorman PA [address] [phone] Health Maintenance Due Date Last Done Comments Hepatitis B Vaccines (1 of 3 - 19+ 3-dose series) 2009 Pneumococcal Vaccine: Pediatrics (0 to 5 Years) and At-Risk Patients (6 to 64 Years) (1 of 2 - PCV) 2009 Social Influencers of Health Screening 06/02/2024 COVID-19 Vaccine ( - season) 2024 04/08/2021, 03/11/2021 Influenza Vaccine (Season Ended) 2025 Depression Screening 10/20/2025 10/20/2024 Hypertension/CHF/CAD Annual BMP Blood Test 02/07/2026 02/07/2025, 02/06/2025, 02/05/2025, Additional history exists Cholesterol Screening (Lipid Panel) 03/27/2029 03/27/2024, 03/27/2024, 03/21/2024 DTaP,Tdap,and Td Vaccines (2 - Td or Tdap) 02/12/2031 02/12/2021 HIV Screening Completed 10/23/2024 Hepatitis C Screening Completed 10/23/2024 HIB Vaccines Aged Out No longer eligi ble based on patient's age to complete this topic HPV Vaccines Aged Out No longer eligi ble based on patient's age to complete this topic Hepatitis A Vaccines Aged Out No long er eligible based on patient's age to complete this topic IPV Vaccines Aged Out No longer eligi ble based on patient's age to complete this topic MMR Vaccines Aged Out No longer eligi ble based on patient's age to complete this topic Meningococcal ACWY Vaccine Aged Out N o longer eligible based on patient's age to complete this topic Meningococcal B Vaccine Aged Out No l onger eligible based on patient's age to complete this topic RSV Immunization Patients Under 20 months Aged Out No longer eligible based on patient's age to complete this topic Varicella Vaccines Aged Out No longer eligible based on patient's age to complete this topic Procedures Procedure Name Priority Date/Time Associated Diagnosis Comments CBC WITH AUTO DIFFERENTIAL Routine 02/07/2025 8:48 AM EDT PHOSPHORUS Routine 02/07/2025 8:48 AM EDT MAGNESIUM Routine 02/07/2025 8:48 AM EDT CBC AND DIFFERENTIAL Routine 02/07/2025 8:48 AM EDT BASIC METABOLIC PANEL Routine 02/07/2025 8:48 AM EDT CULTURE ABSCESS WITH GRAM STAIN STAT 02/06/2025 3:49 PM EDT IR DRAIN FLUID CATH PERIT/RETRO PERC Routine 02/06/2025 3:05 PM EDT CBC WITH AUTO DIFFERENTIAL Routine 02/06/2025 6:08 AM EDT PHOSPHORUS Routine 02/06/2025 6:08 AM EDT MAGNESIUM Routine 02/06/2025 6:08 AM EDT CBC AND DIFFERENTIAL Routine 02/06/2025 6:08 AM EDT BASIC METABOLIC PANEL Routine 02/06/2025 6:[address] ABDOMEN PELVIS W CONTRAST STAT 02/05/2025 11:04 PM EDT XR ABDOMEN 1 VIEW Routine 02/05/2025 10: 04 PM EDT CPAP NIV Routine 02/05/2025 10:00 PM EDT CBC WITH AUTO DIFFERENTIAL Routine 02/05/2025 6:36 AM EDT CBC AND DIFFERENTIAL Routine 02/05/2025 6:36 AM EDT BASIC METABOLIC PANEL Routine 02/05/2025 6:36 AM EDT MAGNESIUM Routine 02/05/2025 6:36 AM EDT PHOSPHORUS Routine 02/05/2025 6:36 AM EDT BASIC METABOLIC PANEL Routine 02/04/2025 6:09 AM EDT MAGNESIUM Routine 02/04/2025 6:09 AM EDT PHOSPHORUS Routine 02/04/2025 6:09 AM EDT CBC WITH AUTO DIFFERENTIAL Routine 02/04/2025 6:08 AM EDT CBC AND DIFFERENTIAL Routine 02/04/2025 6:[address] ANGIO CHEST WO AND/OR W CONTRAST STAT 02/03/2025 5:39 PM EDT Hypoxia XR CHEST 1 VIEW STAT 02/03/2025 4:18 PM EDT ECG 12-LEAD STAT 02/03/2025 4:15 PM EDT CBC WITH AUTO DIFFERENTIAL Routine 02/03/2025 6:23 AM EDT CBC AND DIFFERENTIAL Routine 02/03/2025 6:23 AM EDT BASIC METABOLIC PANEL Routine 02/03/2025 6:23 AM EDT MAGNESIUM Routine 02/03/2025 6:23 AM EDT PHOSPHORUS Routine 02/03/2025 6:23 AM EDT CPAP NIV Routine 02/02/2025 10:00 PM EDT CPAP NIV Routine 02/02/2025 1:24 PM EDT POCT GLUCOSE BLOOD Routine 02/02/2025 12 :57 PM EDT TISSUE EXAM Routine 02/02/2025 12:05 PM EDT Morbid obesity (CMS/HCC V24, CMS/HCC V28) TH AN ENDOTRACHEAL(NO CHARGE) Routine 02/02/2025 11:05 AM EDT OK LAP SURGICAL GASTRIC RESTRICTIVE PROCEDURE LONGITUDINAL GASTRECTOMY 02/02/2025 10:38 AM EDT Morbid obesity (CMS/HCC V24, CMS/HCC V28) TYPE AND SCREEN Routine 02/02/2025 9:48 AM EDT XR CHEST 2 VIEWS Routine 01/22/2025 11:3 3 AM EDT Morbid obesity (CMS/HCC V24, CMS/HCC V28) ECG 12-LEAD Routine 01/22/2025 11:11 AM EDT Morbid obesity (CMS/HCC V24, CMS/HCC V28) CBC WITH AUTO DIFFERENTIAL Routine 01/22/2025 10:55 AM EDT Morbid obesity (CMS/HCC V24, CMS/HCC V28) SHIN URINE CULTURE TUBE Routine 01/22/2025 10:55 AM EDT Morbid obesity (CMS/HCC V24, CMS/HCC V28) URINALYSIS WITH REFLEX MICROSCOPIC AND CULTURE Routine 01/22/2025 10:55 AM EDT Morbid obesity (CMS/HCC V24, CMS/HCC V28) BASIC METABOLIC PANEL Routine 01/22/2025 10:55 AM EDT Morbid obesity (CMS/HCC V24, CMS/HCC V28) CBC AND DIFFERENTIAL Routine 01/22/2025 10:55 AM EDT Morbid obesity (CMS/HCC V24, CMS/HCC V28) MAGNESIUM Routine 01/22/2025 10:55 AM EDT Morbid obesity (CMS/HCC V24, CMS/HCC V28) URINALYSIS WITH REFLEX MICROSCOPIC AND CULTURE Routine 01/22/2025 10:55 AM EDT Morbid obesity (CMS/HCC V24, CMS/HCC V28) TYPE AND SCREEN Routine 01/22/2025 10:55 AM EDT Morbid obesity (CMS/HCC V24, CMS/HCC V28) PROTHROMBIN TIME WITH INR Routine 01/22/2025 10:55 AM EDT Morbid obesity ([facility]/HCC V24, CMS/HCC V28) LIPID PANEL Routine 03/27/2024 from Last 3 Months or Most Recently Relevant to Health Maintenance Results * (ABNORMAL) CBC auto differential (02/07/2025 8:48 AM EDT) Only the most recent of6 resultswithin the time period is included. WBC 9.7 4.8 - 10.8 K/mcL LAB HEMETOLOGY METHOD 02/07/2025 9:06 AM [facility] RBC 4.00(L) 4.50 - 5.50 M/mcL LAB HEMETOLOGY METHOD 02/07/2025 9:06 AM [facility] Hemoglobin 12.4(L) 13.5 - 17.5 g/dL LAB HEMETOLOGY METHOD 02/07/2025 9:06 AM [facility] Hematocrit 37.6(L) 42.0 - 54.0 % LAB HEMETOLOGY METHOD 02/07/2025 9:06 AM [facility] MCV 93.1 79.0 - 98.0 FL LAB HEMETOLOGY METHOD 02/07/2025 9:06 AM [facility] MCH 30.7 27.0 - 32.0 pcg LAB HEMETOLOGY METHOD 02/07/2025 9:06 AM [facility] MCHC 33.0 32.0 - 37.0 g/dL LAB HEMETOLOGY METHOD 02/07/2025 9:06 AM [facility] RDW 12.9 11.0 - 15.0 % LAB HEMETOLOGY METHOD 02/07/2025 9:06 AM [facility] Platelets 225 130 - 400 K/mcL LAB HEMETOLOGY METHOD 02/07/2025 9:06 AM [facility] MPV 10.2 7.0 - 11.0 FL LAB HEMETOLOGY METHOD 02/07/2025 9:06 AM [facility] NRBC 0.0 <1.0 % LAB HEMETOLOGY METHOD 02/07/2025 9:06 AM [facility] NRBC Absolute 0.00 <0.10 K/mcL LAB HEMETOLOGY METHOD 02/07/2025 9:06 AM [facility] Neutrophils Relative 84.9 % LAB HEMETOLOGY METHOD 02/07/2025 9:06 AM [facility] Lymphocytes Relative 6.0 % LAB HEMETOLOGY METHOD 02/07/2025 9:06 AM [facility] Monocytes Relative 7.4 % LAB HEMETOLOGY METHOD 02/07/2025 9:06 AM [facility] Eosinophils Relative 0.4 % LAB HEMETOLOGY METHOD 02/07/2025 9:06 AM [facility] Basophils Relative 0.2 % LAB HEMETOLOGY METHOD 02/07/2025 9:06 AM [facility] Immature Granulocytes Relative 1.1 % LAB HEMETOLOGY METHOD 02/07/2025 9:06 AM EDT [facility] Neutrophils Absolute 8.24(H) 1.50 - 7.00 K/[facility] LAB HEMETOLOGY METHOD 02/07/2025 9:06 AM EDT [facility] Lymphocytes Absolute 0.58(L) 1.00 - 5.00 K/[facility] LAB HEMETOLOGY METHOD 02/07/2025 9:06 AM EDT [facility] Monocytes Absolute 0.72 0.20 - 1.00 K/[facility] LAB HEMETOLOGY METHOD 02/07/2025 9:06 AM EDT [facility] Eosinophils Absolute 0.04 0.00 - 0.50 K/[facility] LAB HEMETOLOGY METHOD 02/07/2025 9:06 AM EDT [facility] Basophils Absolute 0.02 0.00 - 0.20 K/[facility] LAB HEMETOLOGY METHOD 02/07/2025 9:06 AM EDT [facility] Immature Granulocytes Absolute 0.11(H) 0.00 - 0.03 K/[facility] LAB HEMETOLOGY METHOD 02/07/2025 9:06 AM [facility] Blood Venous blood specimen / Unknown Venipuncture / Unknown 02/07/2025 8:48 AM EDT 02/07/2025 8:56 AM EDT us Angelica VALERO LAB BLOOD ORDERABLES Final Res ult [facility] [address] [place] [address], * Phosphorus (02/07/2025 8:48 AM EDT) Only the most recent of5 resultswithin the time period is included. Phosphorus 2.5 2.5 - 4.5 mg/dL LAB CHEMISTRY METHOD 02/07/2025 9:26 AM EDT [facility] Blood Venous blood specimen / Unknown Venipuncture / Unknown 02/07/2025 8:48 AM EDT 02/07/2025 8:56 AM EDT Angelica VALERO LAB BLOOD ORDERABLES Final Res ult Performing Organization Address [facility]/ZIP Co de Phone Number [facility] [address] [place] [address], [place] [phone] * Magnesium (02/07/2025 8:48 AM EDT) Only the most recent of6 resultswithin the time period is included. Magnesium 2.2 1.9 - 2.6 mg/dL LAB CHEMISTRY METHOD 02/07/2025 9:26 AM EDT [facility] Blood Venous blood specimen / Unknown Venipuncture / Unknown 02/07/2025 8:48 AM EDT 02/07/2025 8:56 AM EDT Angelica VALERO LAB BLOOD ORDERABLES Final Res ult Performing Organization Address [facility]/ZIP Co de Phone Number [facility] [address] [place] [address], [place] [phone] * (ABNORMAL) Basic metabolic panel (02/07/2025 8:48 AM EDT) Only the most recent of6 resultswithin the time period is included. Sodium 135 133 - 145 mmol/L LAB CHEMISTRY METHOD 02/07/2025 9:26 AM EDT [facility] Potassium 3.6 3.5 - 5.5 mmol/L LAB CHEMISTRY METHOD 02/07/2025 9:26 AM EDT [facility] Chloride 101 96 - 110 mmol/L LAB CHEMISTRY METHOD 02/07/2025 9:26 AM EDT [facility] CO2 26 21 - 32 mmol/L LAB CHEMISTRY METHOD 02/07/2025 9:26 AM EDT [facility] Anion Gap 8 3 - 11 LAB CHEMISTRY METHOD 02/07/2025 9:26 AM [facility] Glucose 100 70 - 100 mg/dL LAB CHEMISTRY METHOD 02/07/2025 9:26 AM [facility] BUN 14 5 - 25 mg/dL LAB CHEMISTRY METHOD 02/07/2025 9:26 AM [facility] Creatinine 0.61(L) 0.70 - 1.30 mg/dL LAB CHEMISTRY METHOD 02/07/2025 9:26 AM [facility] eGFR 129 >=60 mL/min/1. 73m2 LAB CHEMISTRY METHOD 02/07/2025 9:26 AM [facility] Comment:Calculation based on the??Chronic Kidney Disease Epidemiology Collaboration (CKD-EPI) equation refit??without adjustment for race. BUN/Creatinine Ratio 23.0 LAB CHEMISTRY METHOD 02/07/2025 9:26 AM [facility] Calcium 8.5 8.5 - 10.5 mg/dL LAB CHEMISTRY METHOD 02/07/2025 9:26 AM [facility] Blood Venous blood specimen / Unknown Venipuncture / Unknown 02/07/2025 8:48 AM EDT 02/07/2025 8:56 AM EDT us Angelica VALERO LAB BLOOD ORDERABLES Final Res ult [facility] [address] [place] [address], [place] [phone] * (ABNORMAL) Culture abscess with gram stain (02/06/2025 3:49 PM EDT) CULTURE, ABSCESS Streptococcus viridans group(A) SONU 02/15/2025 11:45 AM [facility] Comment: Susceptibility testing not routinely performed. ??If further therapeutic information is required, please consult an infectious disease specialist. The organism value for this result has been updated. These results have been appended to the previously preliminary verified report. This is an edited result. Previous organism was Gram Positive Cocci on 02/07/2025 at 1138 EDT. CULTURE, ABSCESS Light Growth Methicillin-Sensiti ve Staphylococcus aureus(A) SONU 02/15/2025 11:45 AM [facility] Comment: The organism value for this result has been updated. These results have been appended to the previously preliminary verified report. Edited result: Previously reported as Staphylococcus aureus on 02/09/2025 at 1115 EDT. CULTURE, ABSCESS Very Light Growth Harriet albicans(A) SONU 02/15/2025 11:45 AM [facility] Comment: The organism value for this result has been updated. These results have been appended to the previously preliminary verified report. Edited result: Previously reported as Yeast on 02/10/2025 at 0953 EDT. CULTURE, ABSCESS Atopobium minutum(A) SONU 02/15/2025 11:45 AM [facility] Comment: Anaerobic susceptibilty testing is not routinely performed, if further therapeutic inforamation is required, please consult an Infectious Disease Specialist. The organism value for this result has been updated. These results have been appended to the previously preliminary verified report. Gram Stain Result Many Polymorphonuclear leukocytes(A) 02/15/2025 11:45 AM [facility] Gram Stain Result No Epithelial cells(A) 02/15/2025 11:45 AM [facility] Gram Stain Result Many Gram positive cocci in pairs, chains and clusters(A) 02/15/2025 11:45 AM [facility] Gram Stain Result Moderate Gram positive bacilli(A) 02/15/2025 11:45 AM [facility] Gram Stain Result Few Gram negative bacilli(A) 02/15/2025 11:45 AM [facility] Aspirate Peritoneal cavity structure / Unknown Non-blood Collection / Unknown 02/06/2025 3:49 PM EDT 02/06/2025 3:50 PM EDT Narrative Organism Antibiotic Method Susceptibility Methicillin-Sensitive Staphylococcus aureus Benzylpenicillin SONU >=0.5 ug/ml: Resistant Methicillin-Sensitive Staphylococcus aureus Oxacillin SONU 0.5 ug/ml: Susceptible Methicillin-Sensitive Staphylococcus aureus Gentamicin SONU <=0.5 ug/ml: Susceptible Methicillin-Sensitive Staphylococcus aureus Ciprofloxacin SONU <=0.5 ug/ml: Susceptible Methicillin-Sensitive Staphylococcus aureus Levofloxacin SONU 0.25 ug/ml: Susceptible Methicillin-Sensitive Staphylococcus aureus Moxifloxacin SONU <=0.25 ug/ml: Susceptible Methicillin-Sensitive Staphylococcus aureus Erythromycin SONU 1 ug/ml: Resistant Methicillin-Sensitive Staphylococcus aureus Clindamycin SONU <=0.25 ug/ml: Resistant Methicillin-Sensitive Staphylococcus aureus Quinupristin/Dalfopristin SONU <=0.25 ug/ml: Susceptible Methicillin-Sensitive Staphylococcus aureus Linezolid SONU 2 ug/ml: Susceptible Methicillin-Sensitive Staphylococcus aureus Vancomycin SONU <=0.5 ug/ml: Susceptible Methicillin-Sensitive Staphylococcus aureus Tetracycline SONU <=1 ug/ml: Susceptible Methicillin-Sensitive Staphylococcus aureus Rifampin SONU <=0.5 ug/ml: Susceptible Methicillin-Sensitive Staphylococcus aureus Trimethoprim/Sulfamethoxazo le SONU <=10 ug/ml: Susceptible Jason Fan MD LAB MICROBIOLOGY - GENERAL ORDE [facility] Final Result [facility] [address] [place] [address], * IR Drain Fluid Cath Perit/Retro Perc (02/06/2025 3:05 PM EDT) Anatomical Region Laterality Modality N/A Interventional R adiology 02/06/2025 5:47 PM EDT Narrative 02/06/2025 5:50 PM EDT INDICATION: Status post gastric sleeve formation with postoperative abscess TECHNIQUE: Written informed consent obtained. Patient placed supine on the CAT scan table and axial images obtained for localization of right lower quadrant abscess. The appropriate area of the skin was localized, marked, draped and prepped in the usual sterile fashion. 2% buffered lidocaine used as a local anesthetic. Moderate intravenous sedation initiated and maintained for approximately 15 minutes while the patient was independently monitored by the radiology nurse under the supervision of the interventional radiologist. Under CT fluoroscopic guidance an 18-gauge needle was advanced into the abscess. Once pus aspirated needle removed over short Amplatz wire. Tract dilated up to 10 [place] and placement of a 10 [address] [place] pigtail catheter. A total of 40 mL of pus aspirated. Sample sent for microbiological evaluation. The tube was secured in place and placed to a drainage bag. Post placement CT images obtained. The patient tolerated the procedure well and left the department in stable condition without immediate complications. Scanner: Ooploo [address] Dose reduction technique: AEC (automated exposure control) Dose: total exam DLP 811 mGY per cm FINDINGS: Initial axial images obtained again demonstrate right lower quadrant abscess. Images obtained after catheter placement demonstrate pigtail well formed within the collection. The collection is significant smaller immediately post placement. Consider daily flushing of the catheter. CONCLUSION: CT-guided placement of 10 [place] Lucian pigtail catheter into right lower quadrant abscess. -------- FINAL REPORT -------- Dictated By: Jason Fan Dictated Date: 02/06/2025 17:47 ET Assigned Physician: Jason Fan Reviewed and Electronically Signed By: Jason Fan Signed Date: 02/06/2025 17:50 ET Workstation ID: [id number] Transcribed By: Self Edit Transcribed Date: 02/06/2025 17:47 ET Procedure Note Jason Fan MD - 02/06/2025 INDICATION: Status post gastric sleeve formation with postoperativeabscess TECHNIQUE: Written informed consent obtained. Patient placed supine on theCAT scan table and axial images obtained for localization of right lowerquadrant abscess. The appropriate area of the skin was localized, marked,draped and prepped in the usual sterile fashion. 2% buffered lidocaineused as a local anesthetic. Moderate intravenous sedation initiated andmaintained for approximately 15 minutes while the patient wasindependently monitored by the radiology nurse under the supervision ofthe interventional radiologist. Under CT fluoroscopic guidance an 18-gauge needle was advanced into theabscess. Once pus aspirated needle removed over short Amplatz wire. Tractdilated up to 10 [place] and placement of a 10 [place] pigtail catheter. Atotal of 40 mL of pus aspirated. Sample sent for microbiologicalevaluation. The tube was secured in place and placed to a drainage bag.Post placement CT images obtained. The patient tolerated the procedurewell and left the department in stable condition without immediatecomplications. Scanner: Veeboxeed [address] Dose reduction technique: AEC (automated exposure control) Dose: total exam DLP 811 mGY per cm FINDINGS: Initial axial images obtained again demonstrate right lowerquadrant abscess. Images obtained after catheter placement demonstrate pigtail well formedwithin the collection. The collection is significant smaller immediatelypost placement. Consider daily flushing of the catheter. CONCLUSION: CT-guided placement of 10 [place] pigtail catheter into right lowerquadrant abscess. -------- FINAL REPORT -------- Dictated By: Jason Fan Dictated Date: 02/06/2025 17:47 ET Assigned Physician: Jason Fan Reviewed and Electronically Signed By: Jason Fan Signed Date: 02/06/2025 17:50 ET Workstation ID: [id number] Transcribed By: Self Edit Transcribed Date: 02/06/2025 17:47 ET Jason Fan MD IMG IR PROCEDURES Final Result * CT Abdomen Pelvis w Contrast (02/05/2025 11:04 PM EDT) Anatomical Region Laterality Modality Body Computed Tomogra phy 02/05/2025 11:5 1 PM EDT Addenda Addendum by Monik Julien MD on 02/05/2025 11:57 PM EDT ADDENDUM: This report was discussed with Jony Shah Supervisor on Feb 05, 2025 23:56:00 EDT. This document has been electronically signed by: Komal Sorto on 02/05/2025 23:57:06 Impressions 02/05/2025 11:51 PM EDT 1. Inflammatory changes right side of the abdomen extending into the pelvis loculated fluid with gas on the right side of the abdomen suspicious for abscess formation. Surgical consultation recommended. 2. Small-bowel dilatation with intraluminal fluid and air-fluid levels may represent ileus or developing distal small bowel obstruction. 3. Interval near-complete resolution of pneumoperitoneum. 4. Bilateral pulmonary opacities may represent atelectasis versus with small left pleural effusion. 5. Additional nonacute findings as described. This document has been electronically signed by: Monik Julien MD on 02/05/2025 23:51:37 Narrative 02/05/2025 11:51 PM EDT INDICATION: Abdominal pain, fever CT abdomen and pelvis with contrast Comparison: CT - CT ANGIO CHEST WO AND OR W CONTRAST - 02/03/25 17:34 EDT Findings: Small left pleural effusion. Pulmonary opacities in the lung bases [id number]-[id number]-lswf-right and in the lingula may represent atelectasis versus pneumonia. Mild right middle lobe atelectasis. The gallbladder is distended but otherwise appears unremarkable. No biliary ductal dilatation. Low-attenuation of the liver consistent with steatosis. The spleen, pancreas, adrenal glands and kidneys within normal limits. No ureteral stones and no hydronephrosis or hydroureter. Mild bilateral perinephric stranding. Interval improved pneumoperitoneum with minimal residual anterior free air on image 96/239 series 3. Postoperative changes of the stomach. Intraluminal contrast in the stomach, duodenal and proximal small bowel. Multiple dilated small bowel loops throughout the abdomen with intraluminal fluid and air-fluid levels. Significant inflammatory stranding right side of the abdomen in mid and lower abdomen extending into the pelvis. 5.4 cm x 3.1 cm x 4.8 cm focal fluid with mottled air in the right lower quadrant of the abdomen. Inflammatory stranding adjacent to the urinary bladder but no bladder wall thickening. Prostate is normal in size Abdominal aorta is normal in size. The bones are intact. Air scattered in anterior abdominal likely postoperative in nature. Procedure Note Monik Julien MD - 02/05/2025 INDICATION: Abdominal pain, fever CT abdomen and pelvis with contrast Comparison: CT - CT ANGIO CHEST WO AND OR W CONTRAST - 02/03/25 17:34 EDT Findings: Small left pleural effusion. Pulmonary opacities in the lung bases bfiv-lydberj-qknw-right and in the lingula may represent atelectasis versus pneumonia. Mild right middle lobe atelectasis. The gallbladder is distended but otherwise appears unremarkable. No biliary ductal dilatation. Low-attenuation of the liver consistent with steatosis. The spleen, pancreas, adrenal glands and kidneys within normal limits.No ureteral stones and no hydronephrosis or hydroureter. Mild bilateral perinephric stranding. Interval improved pneumoperitoneum with minimal residual anterior freeair on image 96/239 series 3. Postoperative changes of the stomach. Intraluminal contrast in the stomach, duodenal and proximal small bowel. Multiple dilated small bowel loops throughout the abdomen with intraluminal fluid and air-fluid levels. Significant inflammatory stranding right side of the abdomen in mid and lower abdomen extending into the pelvis. 5.4 cm x 3.1 cm x 4.8 cm focal fluid with mottled air in the right lower quadrant of the abdomen. Inflammatory stranding adjacent to the urinary bladder but no bladderwall thickening. Prostate is normal in size Abdominal aorta is normal in size. The bones are intact. Air scattered in anterior abdominal likely postoperative in nature. IMPRESSION: 1. Inflammatory changes right side of the abdomen extending into the pelvis loculated fluid with gas on the right side of the abdomen suspicious for abscess formation. Surgical consultation recommended. 2. Small-bowel dilatation with intraluminal fluid and air-fluid levelsmay represent ileus or developing distal small bowel obstruction. 3. Interval near-complete resolution of pneumoperitoneum. 4. Bilateral pulmonary opacities may represent atelectasis versus with small left pleural effusion. 5. Additional nonacute findings as described. This document has been electronically signed by: Monik Julien MD on 02/05/2025 23:51:[address] PROCEDURES Edited Resu lt - Final * XR Abdomen 1 View (02/05/2025 10:04 PM EDT) Anatomical Region Laterality Modality Body Radiographic Concepcion ging 02/06/2025 8:10 AM EDT Impressions 02/06/2025 8:12 AM EDT Dilated gas-filled small bowel loops with gas visible in a nondilated colon. ??This could represent a partial small bowel obstruction or ileus. -------- FINAL REPORT -------- Dictated By: Brendan Michaels Dictated Date: 02/06/2025 08:10 ET Assigned Physician: Brendan Michaels Reviewed and Electronically Signed By: Brendan Michaels Signed Date: 02/06/2025 08:12 ET Workstation ID: [id number] Transcribed By: Self Edit Transcribed Date: 02/06/2025 08:10 ET Narrative 02/06/2025 8:12 AM EDT PROCEDURE: Abdominal radiographs. HISTORY: abdominal distension. COMPARISON: None. FINDINGS: Gas-filled dilated small bowel loops measuring up to 6.2 cm in diameter. ??Gas is evident in the colon, which is nondilated. ??No extraluminal gas collection or suspicious calcification. Procedure Note Brendan Michaels MD - 02/06/2025 PROCEDURE: Abdominal radiographs. HISTORY: abdominal distension. COMPARISON: None. FINDINGS: Gas-filled dilated small bowel loops measuring up to 6.2 cm in diameter.Gas is evident in the colon, which is nondilated. No extraluminal gascollection or suspicious calcification. IMPRESSION: Dilated gas-filled small bowel loops with gas visible in a nondilatedcolon. This could represent a partial small bowel obstruction or ileus. -------- FINAL REPORT -------- Dictated By: Brendan Michaels Dictated Date: 02/06/2025 08:10 ET Assigned Physician: Brendan Michaels Reviewed and Electronically Signed By: Brendan Michaels Signed Date: 02/06/2025 08:12 ET Workstation ID: [id number] Transcribed By: Self Edit Transcribed Date: 02/06/2025 08:10 ET us Kyle VALERO IMG XR PROCEDURES Final Resul t * CT Angio Chest wo and/or w Contrast (02/03/2025 5:39 PM EDT) Anatomical Region Laterality Modality Body Computed Tomogra phy 02/03/2025 5:54 PM EDT Addenda Addendum by Jose Ball MD on 02/03/2025 6:00 PM EDT ADDENDUM: This report was discussed with Demi Linares RN on Feb 03, 2025 18:00:00 EDT. This document has been electronically signed by: Elen Graham on 02/03/2025 18:00:41 Impressions 02/03/2025 5:54 PM EDT Impression: 1. Somewhat technically limited exam as described above. However no central pulmonary embolism or other evidence of pulmonary embolism is appreciated. 2. Images below the diaphragms reveal pneumoperitoneum. 3. Bilateral dependent lower lobe atelectasis or developing consolidation. This document has been electronically signed by: Jose Ball MD on 02/03/2025 17:54:17 Narrative 02/03/2025 5:54 PM EDT INDICATION: Tachycardia, hypoxia, r/o PE Exam: Contrast-enhanced chest CT pulmonary angiogram with multiplanar reformats. Comparison: None. Findings: Exam is somewhat limited by bolus timing, with main pulmonary artery opacified to 178 Hounsfield units (greater than 200 Hounsfield units is considered acceptable). No central pulmonary embolism or gross evidence of pulmonary embolism appreciated. No aortic dissection. No mediastinal or hilar masses or adenopathy. No pleural or pericardial effusions. Images below the diaphragms reveal small amount of pneumoperitoneum primarily overlying the liver (for example, 2; 306-378). Lungs reveal bilateral dependent lower lobe atelectasis or developing consolidation. No other emigdio consolidation. No pneumothorax. Airways are grossly patent. Osseous structures reveal no destructive osseous lesions. Procedure Note Jose Ball MD - 02/03/2025 INDICATION: Tachycardia, hypoxia, r/o PE Exam: Contrast-enhanced chest CT pulmonary angiogram with multiplanar reformats. Comparison: None. Findings: Exam is somewhat limited by bolus timing, with main pulmonary artery opacified to 178 Hounsfield units (greater than 200 Hounsfield units is considered acceptable). No central pulmonary embolism or gross evidence of pulmonary embolism appreciated. No aortic dissection. No mediastinal or hilar masses or adenopathy. No pleural or pericardial effusions. Images below the diaphragms reveal small amount of pneumoperitoneum primarily overlying the liver (for example, 2; 306-378). Lungs reveal bilateral dependent lower lobe atelectasis or developing consolidation. No other emigdio consolidation. No pneumothorax. Airwaysare grossly patent. Osseous structures reveal no destructive osseous lesions. IMPRESSION: Impression: 1. Somewhat technically limited exam as described above. However no central pulmonary embolism or other evidence of pulmonary embolism is appreciated. 2. Images below the diaphragms reveal pneumoperitoneum. 3. Bilateral dependent lower lobe atelectasis or developingconsolidation. This document has been electronically signed by: Jose Ball MD on 02/03/2025 17:54:[address] PROCEDURES Edited Result - Final * XR Chest 1 View (02/03/2025 4:18 PM EDT) Anatomical Region Laterality Modality Body Radiographic Concepcion ging 02/04/2025 8:25 AM EDT Impressions 02/04/2025 8:27 AM EDT Limited depth of inspiration. Interval development of discoid atelectasis at the left lung base since 01/22/2025. The cardiac silhouette remains at the upper limits of normal; again, further evaluation with echocardiography should be considered. Code 99549 -------- FINAL REPORT -------- Dictated By: Richie Hernandez Dictated Date: 02/04/2025 08:25 ET Assigned Physician: Richie Hernandez Reviewed and Electronically Signed By: Richie Hernandez Signed Date: 02/04/2025 08:27 ET Workstation ID: [id number] Transcribed By: Self Edit Transcribed Date: 02/04/2025 08:25 ET Narrative 02/04/2025 8:27 AM EDT HISTORY: The patient is a 34-year-old male with tachycardia. FINDINGS: Semierect AP portable radiograph of the chest demonstrates limited depth of inspiration, shallower than that seen on the prior study performed 01/22/2025. The bony structures are of normal appearance. The cardiac silhouette remains at the upper limits of normal accounting for shallow inspiration. The mediastinal contour is within normal limits. Discoid atelectasis has developed at the left lung base. The lungs are otherwise clear. Procedure Note Richie Hernandez MD - 02/04/2025 HISTORY: The patient is a 34-year-old male with tachycardia. FINDINGS: Semierect AP portable radiograph of the chest demonstrateslimited depth of inspiration, shallower than that seen on the prior studyperformed 01/22/2025. The bony structures are of normal appearance. Thecardiac silhouette remains at the upper limits of normal accounting forshallow inspiration. The mediastinal contour is within normal limits.Discoid atelectasis has developed at the left lung base. The lungs areotherwise clear. IMPRESSION: Limited depth of inspiration. Interval development of discoid atelectasisat the left lung base since 01/22/2025. The cardiac silhouette remains atthe upper limits of normal; again, further evaluation withechocardiography should be considered. Code 21981 -------- FINAL REPORT -------- Dictated By: Richie Hernandez Dictated Date: 02/04/2025 08:25 ET Assigned Physician: Richie Hernandez Reviewed and Electronically Signed By: Richie Hernandez Signed Date: 02/04/2025 08:27 ET Workstation ID: [id number] Transcribed By: Self Edit Transcribed Date: 02/04/2025 08:25 ET Joe De Guzman MD IMG XR PROCEDURES Final Resu lt * ECG 12 lead (02/03/2025 4:15 PM EDT) Only the most recent of2 resultswithin the time period is included. Ventricular Rate ECG 111 BPM GEMUSE Atrial Rate 111 BPM GEMUSE P-R Interval 148 ms GEMUSE QRS Duration 94 ms GEMUSE Q-T Interval 324 ms GEMUSE QTc 440 ms GEMUSE P Wave [place] 19 degrees GEMUSE R [place] 51 degrees GEMUSE T [place] 3 degrees GEMUSE ECG Interpretation Sinus tachycardia Otherwise normal ECG When compared with ECG of 03-FEB-2025 16:14, (unconfirmed) No significant change was found Confirmed by JAZLYN BAUER ([id number]) on 02/04/2025 7:56:55 AM GEMUSE 02/03/2025 4:15 PM EDT 02/04/2025 7:56 AM EDT Joe De Guzman MD ECG ORDERABLES Final Result GEMUSE * (ABNORMAL) POCT Glucose, blood (02/02/2025 12:57 PM EDT) Glucose POCT 175(H) 70 - 100 mg/dL 02/02/2025 12:58 PM EDT [facility] Blood Capillary blood specimen / Unknown 02/02/2025 12:57 PM EDT 02/02/2025 12:59 PM EDT us Joe De Guzman MD LAB POINT OF CARE TE ST DOCKED DEVICE UNSOLICITED RESULTS Final Result [facility] [address] [place] [address], [place] [phone] * Tissue exam (02/02/2025 12:05 PM EDT) Final Diagnosis Stomach, laparoscopic sleeve gastrectomy: - Chronic gastritis with predominantly basilar lymphocytosis including scattered lymphoid aggregates and relatively sparse superficial plasmacytosis. - An immunohistochemical study for Helicobacter pylori is negative. - An immunohistochemical study for INSM1 shows a modest increase in neuroendocrine cells (including small clusters of greater than 5 INSM1 positive cells and contiguous linear groups of greater than 5 consecutive INSM1 positive cells). 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 Note: Histologic sections show diffuse chronic gastritis without activity. The epithelium and parietal cells are sparse in this the insurance claim representative sections submitted (atrophy of oxyntic mucosa). Definitive intestinal/goblet cell metaplasia is not identified in insurance claim representative sections. Focal pyloric metaplasia is noted. An immunohistochemical study for INSM1 shows that there is a patchy increase (linear and nodular) in enterochromaffin-like cells distributed in linear groups and small nodules of greater than 5 consecutive INSM1-positive cells. 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 Correlation with clinical and serologic studies is recommended, as clinically indicated. 5 7:06 PM EDT [facility] Comment [employer] Et[employer] Operator slide(s) from this case have been presented at Anatomic Pathology Intradepartmental Review Conference on 02/05/25. 5 7:06 PM EDT [facility] Gross Description A. Stomach, : Labeled stomach . Received in formalin is a 18 x 4 x 3 cm portion of stomach with an irregular staple line. The serosa is fung-pink, smooth and glistening with minimal attached adipose tissue. The gastric lumen contains bloody mucoid material. The mucosa is fung-pink to red, with unremarkable rugal folds. The wall (muscularis) is uniform in thickness and averages 0.2 cm. The margin adjacent to the staple lines is inked black. [employer] Et[employer] Operator sections are submitted in one cassette, including a perpendicular section to the margin and random stomach, three pieces. RAMYA 5 7:06 PM EDT [facility] Disclaimer NOTE: The immunohistochemical tests and in situ hybridization tests were developed and their performance characteristics were determined by [facility]. They have not been cleared or approved by the U.S. Food and Drug Administration. The FDA has determined that such clearance or approval is not necessary. These tests are used for clinical purposes. They should not be regarded as investigational or for research. This laboratory is certified under the Clinical Laboratory Improvement Amendments of 1988 (CLIA) as qualified to perform high complexity clinical laboratory testing. (controls appropriate) Unless otherwise specified, all tissue is 10% NB formalin fixed and paraffin embedded. 5 7:06 PM EDT [facility] Tissue Stomach structure / Unknown 02/02/2025 12:05 PM EDT 02/02/2025 2:21 PM EDT us Joe De Guzman MD LAB PATHOLOGY ORDERABLES Fin al Result [facility] [address] [place] [address], * TH AN ENDOTRACHEAL(NO CHARGE) (02/02/2025 11:05 AM EDT) Narrative Estevan Rothman CRNA - 02/02/2025 11:05 AM EDT Estevan Rothman CRNA ? 02/02/2025 11:14 AM General Information and Staff Patient location during procedure: OR Performed by: Estevan Rothman CRNA Authorized by: Christopher Barone MD ?? Intubation Additional Comments Dentition unchanged. Airway not difficult Urgency: elective Final Airway Details Successful airway: ETT Cuffed: yes Successful intubation technique: direct laryngoscopy Facilitating devices/methods: intubating stylet Endotracheal tube insertion site: oral Blade: Zac Blade size: #4 ETT size (mm): 8.0 Cormack-Lehane Classification: grade I - full view of glottis Placement verified by: chest auscultation and capnometry Number of attempts at approach: 1Final airway type: endotracheal airway Indications and Patient Condition Indications for airway management: anesthesia Spontaneous Ventilation: absent Sedation level: Yes Preoxygenated: yes Soft Tissue Damage: No Dentition Unchanged: Yes Patient position: sniffing MILS maintained throughout Mask difficulty assessment: 2 - vent by mask + OA or adjuvant +/- NMBA us Christopher Barone MD ANESTHESIA ORDERABLES Edited R esult - Final * Type and screen (02/02/2025 9:48 AM EDT) Only the most recent of2 resultswithin the time period is included. ABO Group O 02/02/2025 12:38 PM EDT [facility] Rh Type Positive 02/02/2025 12:38 PM EDT [facility] Antibody Screen Negative 02/02/2025 12:38 PM EDT [facility] Blood Venous blood specimen / Unknown Venipuncture / Unknown 02/02/2025 9:48 AM EDT 02/02/2025 9:55 AM EDT us Christopher Barone MD LAB BLOOD BANK TEST ORDERABLES Final Result [facility] [address] [place] [address], * XR Chest 2 Views (01/22/2025 11:33 AM EDT) Anatomical Region Laterality Modality Body Radiographic Concepcion ging 01/22/2025 11:3 9 AM EDT Impressions 01/22/2025 11:41 AM EDT No acute pulmonary disease. The cardiac silhouette is at the upper limits of normal, with a cardiothoracic ratio of 0.48. As this is unusual in this age group, further evaluation with echocardiography should be considered. Code 32788 -------- FINAL REPORT -------- Dictated By: Richie Hernandez Dictated Date: 01/22/2025 11:39 ET Assigned Physician: Richie Hernandez Reviewed and Electronically Signed By: Richie Hernandez Signed Date: 01/22/2025 11:41 ET Workstation ID: [id number] Transcribed By: Self Edit Transcribed Date: 01/22/2025 11:39 ET Narrative 01/22/2025 11:41 AM EDT HISTORY: The patient is a 34-year-old male undergoing evaluation prior to bariatric surgery. FINDINGS: PA and lateral radiographs of the chest, without previous for comparison, demonstrate normal appearance of the bony structures. The cardiac silhouette is at the upper limits of normal, with a cardiothoracic ratio of 0.48. Mediastinal contour is within normal limits. The lungs and costophrenic angles are clear. Procedure Note Richie Hernandez MD - 01/22/2025 HISTORY: The patient is a 34-year-old male undergoing evaluation prior tobariatric surgery. FINDINGS: PA and lateral radiographs of the chest, without previous forcomparison, demonstrate normal appearance of the bony structures. Thecardiac silhouette is at the upper limits of normal, with a cardiothoracicratio of 0.48. Mediastinal contour is within normal limits. The lungs andcostophrenic angles are clear. IMPRESSION: No acute pulmonary disease. The cardiac silhouette is at the upper limitsof normal, with a cardiothoracic ratio of 0.48. As this is unusual in thisage group, further evaluation with echocardiography should beconsidered. Code 34138 -------- FINAL REPORT -------- Dictated By: Richie Hernandez Dictated Date: 01/22/2025 11:39 ET Assigned Physician: Richie Hernandez Reviewed and Electronically Signed By: Richie Hernandez Signed Date: 01/22/2025 11:41 ET Workstation ID: [id number] Transcribed By: Self Edit Transcribed Date: 01/22/2025 11:39 ET Jessy VALERO IMG XR PROCEDURES Final Resu lt * (ABNORMAL) Urinalysis with reflex microscopic and culture (01/22/2025 10:55 AM EDT) Specific [place] Urine 1.025 1.003 - 1.030 LAB URINALYSIS - AUTOMATED METHOD 01/22/2025 11:40 AM [facility] pH, Urine 5.5 5.0 - 8.0 pH LAB URINALYSIS - AUTOMATED METHOD 01/22/2025 11:40 AM [facility] Leukocytes, Urine Negative Negative LAB URINALYSIS - AUTOMATED METHOD 01/22/2025 11:40 AM [facility] Nitrite, Urine Negative Negative LAB URINALYSIS - AUTOMATED METHOD 01/22/2025 11:40 AM [facility] Protein, Urine Negative <=Trace mg/dL LAB URINALYSIS - AUTOMATED METHOD 01/22/2025 11:40 AM [facility] Glucose, Urine Negative Negative mg/dL LAB URINALYSIS - AUTOMATED METHOD 01/22/2025 11:40 AM [facility] Ketones, Urine Trace(A) Negative mg/dL LAB URINALYSIS - AUTOMATED METHOD 01/22/2025 11:40 AM [facility] Urobilinogen, Urine 1.0 0.2 - 1.0 mg/dL LAB URINALYSIS - AUTOMATED METHOD 01/22/2025 11:40 AM [facility] Bilirubin, Urine Negative Negative LAB URINALYSIS - AUTOMATED METHOD 01/22/2025 11:40 AM [facility] Blood, Urine Negative Negative LAB URINALYSIS - AUTOMATED METHOD 01/22/2025 11:40 AM [facility] Urine Urine specimen obtained by clean catch procedure / Unknown Non-blood Collection / Unknown 01/22/2025 10:55 AM EDT 01/22/2025 11:34 AM EDT us Jessy VALERO LAB URINE ORDERABLES Final R esult [facility] [address] [place] [address], [place] [phone] * Shin urine culture tube (01/22/2025 10:55 AM EDT) Extra Tube Hold for add-ons. 01/22/2025 1:01 PM EDT [facility] Comment:Auto resulted. Urine Urine specimen obtained by clean catch procedure / Unknown Non-blood Collection / Unknown 01/22/2025 10:55 AM EDT 01/22/2025 11:34 AM EDT us Jessy VALERO LAB URINE ORDERABLES Final R esult Performing Organization Address [facility]/ZIP Co de Phone Number [facility] [address] [place] [address], [place] [phone] * Prothrombin time with INR (01/22/2025 10:55 AM EDT) Protime 12.2 10.6 - 13.9 sec LAB COAGULATION METHOD 01/22/2025 11:43 AM EDT [facility] INR 1.0 LAB COAGULATION METHOD 01/22/2025 11:43 AM EDT [facility] Blood Venous blood specimen / Unknown Venipuncture / Unknown 01/22/2025 10:55 AM EDT 01/22/2025 11:34 AM EDT us Jessy VALERO LAB BLOOD ORDERABLES Final R esult [facility] [address] [place] [address], * (ABNORMAL) Lipid panel (03/27/2024) LDL/HDL Ratio 4 0 - 4 Triglycerides 180(A) 0 - 150 mg/dL Cholesterol 176 0 - 200 mg/dL HDL 45 >=40 mg/dL LDL Cholesterol 95 0 - 100 mg/dL Blood Venous blood specimen / Unknown Historical Provider LAB BLOOD ORDERABLES Nydia l Result from Last 3 Months or Most Recently Relevant to Health Maintenance Insurance [place]ICA[place] - [place] Advance Directives * Full Code - Default (Latest Code Status on File) Date Activated Date Inactivated Comments 02/02/2025 9:34 AM 02/07/2025 8:57 PM This is order is used when code status has not been discussed with the patient, or code status is otherwise unknown/unconfirmed To update the patient's code status, place a code status order. Do not modify or discontinue any currently active code status orders. Care Teams Textile Chemist Relationship Specialty Start Date End Date Zofia Pascual MD [address] [place] [address] PCP - General Family Medicine 09/28/24
[2025-02-19 13:12] LABS: TSH reflex Free T4 7.26 uIU/mL (0.32-4.0)
[2025-02-19 14:05] LABS: Free T4 (Free Thyroxine) 0.91 ng/dL (0.71-1.85)
== END 2025-02-19 10:59 | disposition home or self-care (01) ==
LOC: HO.XRAY 10:58
PROVIDERS: PCP Family Medicine; Visit Provider Internal Medicine
DX: E03.8 Other specified hypothyroidism (principal); R07.89 Other chest pain; Z98.84 Bariatric surgery status
CPT/HCPCS: 36415; 71046; 80053; 84439; 84443; 85025; 85379

== ENCOUNTER → 2025-02-19 11:16 | Outpatient (BNV) | payer MEDICAID, SELFPAY | PROVIDERS: PCP Family Medicine; Visit Provider Radiology Diagnostic Radiology | DX: R07.89 Other chest pain (principal) | CPT/HCPCS: 71046 ==

== ENCOUNTER 2025-02-22 20:16 | Emergency (ER) | payer MEDICAID, SELFPAY ==
--- NOTE | ~2025-02-22 | CT_ITS ---
CLINICAL HISTORY: sbo CT abdomen and pelvis with contrast Comparison: CT - CT ABDOMEN PELVIS W IV CON - 02/23/25 01:36 EDT Findings: The lung bases are clear. Liver is of low-attenuation, mild hepatic steatosis. Gallbladder, pancreas and spleen are within normal limits. Adrenal glands are unremarkable. The kidneys enhance symmetrically and are non hydronephrotic. 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 Large multiloculated peripherally enhancing fluid collection in the right lower quadrant measures 4.2 x 4.5 cm in the axial plane and extends approximately 10.3 cm craniocaudally. Fluid collection abuts multiple loops of bowel in the right lower quadrant Small foci of gas are present within the nondependent portion of the structure. There is significant surrounding edema or fat stranding. Mild enlargement of right lower quadrant mesenteric lymph nodes, likely reactive. Linear subcutaneous fat stranding is noted in the right lower quadrant ventral abdominal wall. Visualized portions of the appendix are within normal limits. The bones are intact. IMPRESSION: 1. Large intraperitoneal probable abscess in the right lower quadrant with extensive regional fat stranding or inflammatory change. The peripherally enhancing fluid collection abuts multiple loops of bowel in the right lower quadrant. Visible proximal portions of the appendix are grossly within normal limits. 2. Linear subcutaneous fat stranding in the right lower quadrant abdominal wall, query postoperative change or penetrating injury. This document has been electronically signed by: Mohamud Munroe MD, PHD on 02/23/2025 03:02:26
[2025-02-22 21:03] VITALS: BP 119/71; PULSE 113; RESP 18; TEMP 37.7; O2SAT 97; BMI 28.5
[2025-02-22 22:04] LABS: MANUAL DIFF FLAG NO
[2025-02-22 22:06] LABS: Basophils Percent Auto 0.3 % (0-2); Eosinophils Percent Auto 0.3 % (0-4); Hematocrit 41.7 % (42.0-52.0); Hemoglobin 13.7 g/dl (14.0-18.0); Imm Gran Abs Auto 0.07 X10*3/uL (0.00-0.03); Imm Gran Pct Auto 0.5 % (0.0-0.4); Lymphocytes Absolute Auto 1.1 X10*3/uL (1.2-4.9); Lymphocytes Percent Auto 8.1 % (20-40); Mean Corpuscular HGB Conc 32.9 g/dl (31.0-36.0); Mean Corpuscular Hemoglobin 30.6 pg (27.0-33.0); Mean Corpuscular Volume 93.1 fL (80.0-98.0); Monocytes Absolute Auto 0.8 X10*3/uL (0.1-1.2); Monocytes Percent Auto 5.8 % (2-11); Platelet Count 403 X10*3/uL (160-400); Red Blood Count 4.48 X10*6/uL (4.60-5.80); Red Cell Distribution Width 12.8 % (11.0-16.0); White Blood Count 12.9 X10*3/uL (4.8-10.8)
[2025-02-22 22:21] LABS: Lactic Acid 1.4 mmol/L (0.5-2.0)
[2025-02-22 22:22] LABS: Alanine Aminotransferase 77 U/L (0-40); Albumin Level 3.7 g/dL (3.5-5.0); Alkaline Phosphatase 115 U/L (39-117); Aspartate Amino Transferase 55 U/L (5-37); Blood Urea Nitrogen 11 mg/dL (9-16); Calcium 10.2 mg/dL (8.4-10.2); Creatinine Clr Calc Pharmacy 131.2; Estimated Glomerular Filt Rate > 60; Glucose Random 100 mg/dL (60-115); Total Protein 9.5 g/dL (6.5-8.0)
--- OUTSIDE RECORDS SUMMARY | 2025-02-22 22:34 | XMS_ITS | Encounter Summary ---
Author Organization [employer] Address [address] [facility] 7t [place] [address] Care Team Providers Care Maintenance Mechanic Engine Name Role Phone Zofia Pascual MD Primary Care Provider [phone] Encounter Details Date Type Department Care Team (Late st Contact Info) Description 03/06/2024 Orders Only [facility] [address] [place] [address] Provider, MD Candice Social History Tobacco Use [...] Vitamin D 25-OH Total 19.1(L) >30 ng/mL [facility] Comment:Health Based Referen ce Values*< 20 ng/mL Qkybkuitt72-17 ng/mL Insufficient> 30 ng/mL Sufficient*nIdu DIAZ. N Engl J Med. 2007;[id number]:266-280Care must [...] MD LAB BLOOD ORDERABLES Final Re sult [facility] [address] [place] [phone] * (ABNORMAL) Lipid Panel, Standard (03/21/2024 11:55 AM EDT) Triglycerides 80 <150 mg/dL [facility] Comment:Desirable Triglyceri de: less than 150 mg/dLBorderline High Triglyceride 150-199 mg/dLHigh Triglyceride: 200-499 mg/dLVery High Triglyceride: greater than or equal to 5OO mg/dL Cholesterol 160 <200 mg/dL [facility] Comment:Desirable Cholestero l: less than 200 mg/dLBorderline High Cholesterol: 200-239 mg/dLHigh Cholesterol: greater than 239 mg/dL LDL Cholesterol Calculated 100(H) <100 mg/dL [facility] Comment:Desirable LDL: less than 100 mg/dLNear Optimal/Above Optimal LDL: 110- 129 mg/dLBorderline High LDL: 130-159 mg/dLHigh LDL: 160-189 mg/dLVery High LDL: greater than or equal to 190 mg/dL HDL Cholesterol 44 >40 mg/dL [facility] Comment:Desirable HDL: great er than 40 mg/dL Note: This HDL assay may give artificially low results in patients with liver disease. 03/21/2024 11:5 5 AM EDT 03/21/2024 11:55 AM EDT us Zofia Pascual MD LAB BLOOD ORDERABLES Final Re sult [facility] [address] [place] [phone] * CBC auto differential (03/21/2024 11:55 AM EDT) White Blood Count 6.3 4.8 - 10.8 X10*3/uL [facility] Red Blood Count 5.08 4.60 - 5.80 X10*6/uL [facility] Hemoglobin 15.5 14.0 - 18.0 g/dl [facility] Hematocrit 46.3 42.0 - 52.0 % [facility] Mean Corpuscular Volume 91.1 80.0 - 98.0 fL [facility] Mean Corpuscular Hemoglobin 30.5 27.0 - 33.0 pg [facility] Mean Corpuscular HGB Conc 33.5 31.0 - 36.0 g/dl [facility] Red Cell Distribution Width 12.9 11.0 - 16.0 % [facility] Platelet Count 235 160 - 400 X10*3/uL [facility] Mean Platelet Volume 10.6 9.4 - 12.4 fL [facility] Neutrophils Percent Auto 67.0 45 - 73 % [facility] Imm Gran Pct Auto 0.3 0.0 - 0.4 % [facility] Lymphocytes Percent Auto 23.7 20 - 40 % [facility] Monocytes Percent Auto 7.7 2 - 11 % [facility] Eosinophils Percent Auto 1.0 0 - 4 % [facility] Basophils Percent Auto 0.3 0 - 2 % [facility] NRBC Pct Auto 0.0 0.0 - 0.2 /100WBC [facility] Neutrophils Absolute Auto 4.2 2.0 - 8.3 x10*3/uL [facility] Imm Gran Abs Auto 0.02 0.00 - 0.03 X10*3/uL [facility] Lymphocytes Absolute Auto 1.5 1.2 - 4.9 X10*3/uL [facility] Monocytes Absolute Auto 0.5 0.1 - 1.2 X10*3/uL [facility] Eosinophils Absolute Auto 0.1 0.0 - 0.4 X10*3/uL [facility] Basophils Absolute Auto 0.0 0.0 - 0.2 X10*3/uL [facility] NRBC Abs Auto 0.000 0.0 - 0.012 X10*3/uL [facility] 03/21/2024 11:5 5 AM EDT 03/21/2024 11:55 AM EDT us Zofia Psacual MD LAB BLOOD ORDERABLES Final Re sult [facility] [address] [place] [phone] * (ABNORMAL) T4, Free (03/07/2024 3:39 PM EDT) Free T4 (Free Thyroxine) 0.70(L) 0.71 - 1.85 ng/dL [facility] 03/07/2024 3:39 PM EDT 03/07/2024 5:41 PM EDT us Zofia Pascual MD LAB BLOOD ORDERABLES Final Re sult [facility] [address] [place] [address] [phone] * (ABNORMAL) Comprehensive Metabolic Panel, Fasting (03/07/2024 3:39 PM EDT) Sodium 138 135 - 145 mmol/L [facility] Potassium 4.0 3.3 - 5.1 mmol/L [facility] Chloride 104 96 - 108 mmol/L [facility] Carbon Dioxide 24 22 - 29 mmol/L [facility] Anion Gap 14 12 - 20 [facility] Urea Nitrogen (BUN) 10 9 - 16 mg/dL [facility] Creatinine, Serum 0.81 0.5 - 1.4 mg/dL [facility] Estimated Glomerular Filt Rate >60 [facility] Comment:NOTE: For -Am erican individuals, multiply the result by 1.210.Chronic Kidney Disease: Estimated GFR < 60 mL/min/1.33b8Peggnc Kidney Disease: Estimated GFR < 15 mL/min/1.73m2 Glucose Fasting 94 60 - 99 mg/dL [facility] Calcium 9.7 8.4 - 10.2 mg/dL [facility] Bilirubin, Total 0.5 0.0 - 1.0 mg/dL [facility] Aspartate Amino Transferase 33 5 - 37 U/L [facility] Alanine Aminotransferase 48(H) 0 - 40 U/L [facility] Total Protein 8.2(H) 6.5 - 8.0 g/dL [facility] Albumin Level 4.0 3.5 - 5.0 g/dL [facility] Alkaline Phosphatase 92 39 - 117 U/L [facility] 03/07/2024 3:39 PM EDT 03/07/2024 5:41 PM EDT us Zofia Pascual MD LAB BLOOD ORDERABLES Final Re sult [facility] [address] [place] [phone] [phone] * XR Chest 2 Views (02/07/2024 10:17 AM EDT) Anatomical Region Laterality Modality Chest Radiographic Concepcion ging us Historical Provider IMG XR PROCEDURES Final R esult documented in this encounter Visit Diagnoses Not on filedocumented in this encounter Care Teams Maintenance Mechanic Engine Relationship Specialty Start Date End Date Zofia Pascual MD [address] [place] [address] PCP - General Family Medicine 03/07/24 documented as of this encounter
--- OUTSIDE RECORDS SUMMARY | 2025-02-22 22:34 | XMS_ITS | Encounter Summary ---
Author Organization [facility] Address [address] [place] [address] Care Team Providers Care Coffee Shop Manager Name Role Phone Zofia Pascual MD Primary Care Provider [phone] Reason for Referral * Imaging (Emergency) - Authorized Specialty Diagnoses / Procedures Referred By Jose mandel Referred To Contact Radiology Diagnoses Right lower quadrant abdominal pain Procedures CT Abdomen Pelvis w Contrast Jessy Gorman PA [address] [address] Phone: tel: fax: [facility] CT Scan [address] [place] [address] Phone: tel: Referral ID Status Reason Start Date Expiration Date V isits Requested Visits Authorized [id number] Authorized 02/20/2025 02/20/2026 1 1 Reason for Visit * Reason Comments Post-op Visit Sleeve 02/02 Encounter Details Date Type Department Care Team (Late st Contact Info) Description 02/20/2025 11:30 AM EDT Office Visit Bariatric Surgery - [place] [address] [phone] Jessy Gorman PA [address] [phone] Right lower quadrant abdominal pain (Primary Dx) Social History Tobacco Use Types Packs/Day Years Used Date Smoking Tobacco: Never Alcohol Use Standard Drinks/Week Comments Not Currently [...] Sign Reading Time Taken Comments Blood Pressure 113/75 02/20/2025 11:30 AM EDT Pulse 114 02/20/2025 11:30 AM EDT Temperature - - Respiratory Rate - - Oxygen Saturation - - Inhaled Oxygen Concentration - - Weight 130 kg (285 lb 9.6 oz) 02/20/2025 11:30 A M EDT Height 180.3 cm (5' 11 ) 02/20/2025 11:30 AM EDT Body Mass Index 39.83 02/20/2025 11:30 AM EDT documented in this encounter Plan of Treatment Upcoming Encounters Date Type Department Care Team (Late st Contact Info) Description 03/06/2025 10:30 AM EDT Telemedicine Bariatric Surgery [facility] [address] [phone] [address] [address] 04/05/2025 11:15 AM EDT Office Visit Bariatric Surgery [facility] [address] [phone] Jessy Gorman PA [address] [address] Scheduled Orders Name Type Priority Associated Diagnoses Orde r Schedule CT Abdomen Pelvis w Contrast Imaging STAT Right lower quadrant abdominal pain Expected: 02/20/2025, Expires: 02/20/2026 documented as of this encounter Visit Diagnoses Diagnosis Right lower quadrant abdominal pain- Primary documented in this encounter Care Teams Coffee Shop Manager Relationship Specialty Start Date End Date Zofia Pascual MD [address] [place] [phone] PCP - General Family Medicine 09/28/24 documented as of this encounter
--- OUTSIDE RECORDS SUMMARY | 2025-02-22 22:34 | XMS_ITS | Encounter Summary ---
Author Organization [facility] Address [address] [place] [address] Care Team Providers Care Account Manager Relief Name Role Phone Zofia Pascual MD Primary Care Provider [phone] Reason for Visit * Reason Onset Date Comments Advice Only 01/23/2025 Call from [facility] Encounter Details Date Type Department Care Team ([facility] st Contact Info) Description 01/23/2025 Telephone Bariatric Surgery - [place] [address] [facility] [address] [place] [address] Joe De Guzman MD [address] [facility] [address] [place] [address] Advice Only (Call from [facility]) Social History Tobacco Use Types Packs/Day Years [...] Mariann Walker - 01/23/2025 11:47 AM EDT [facility] called to ask if we were going to follow up with ordering the patient an echo in reference to patient CXR results completed 01/22? Please advise at [phone] ask for nurse Kylah. documented in this encounter Plan of Treatment Upcoming Encounters Date Type Department Care Team (Late st Contact Info) Description 03/06/2025 10:30 AM EDT Telemedicine Bariatric Surgery - [place] [address] [phone] [phone] 04/05/2025 11:15 AM EDT Office Visit Bariatric Surgery - [place] [address] [phone] Jessy Gorman PA [address] [address] documented as of this encounter Visit Diagnoses Not on filedocumented in this encounter Care Teams Account Manager Relief Relationship Specialty Start Date End Date Zofia Pascual MD [address] [place] [address] PCP - General Family Medicine 09/28/24 documented as of this encounter
--- OUTSIDE RECORDS SUMMARY | 2025-02-22 22:34 | XMS_ITS | Encounter Summary ---
Author Organization [employer] Address [address] [facility] 7 [place] [address] Care Team Providers Care Technology Support Analyst Name Role Phone Zofia Pascual MD Primary Care Provider [phone] Reason for Visit * Reason Onset Date Comments critical result 02/19/2025 Encounter Details Date Type Department Care Team ([facility] st Contact Info) Description 02/19/2025 Telephone [facility] [address] [place] [address] Lina Caba MD [address] [place] [address] critical result Social History Tobacco Use Types [...] 12:51 PM EDT TC to [facility] at [facility] ED. Pt information and lab results given. RN states that the pt is on the [facility]. Lavelle verbalizes understanding and agreement with the plan of care. * Telephone Encounter - Annabel Graves RN - 02/19/2025 12:48 PM EDT TC to pt to instruct to go to nearest ER due to elevated D-Dimer and possible blood clot. special education itinerant teacher used. Pt verbalized understanding and stated would go to [facility]. * Telephone Encounter - Lina Caba MD - 02/19/2025 12:47 PM EDT FYI. He needs to be evaluated in the emergency department to rule out pulmonary embolism or deep venous thrombosis. * Telephone Encounter - Jenni Alonzo RN - 02/19/2025 12:30 PM EDT Tc received from [facility] lab with critical D- Dimer result of 1,150. Forwarded to provider and team nurses. documented in this encounter Plan of Treatment Not on file documented as of this encounter Visit Diagnoses Not on filedocumented in this encounter Additional Health Concerns Assessment Noted Time PHQ-9 Depression Total Score: 3 10/20/20 24 1:24 PM EST documented as of this encounter Care Teams Technology Support Analyst Relationship Specialty Start Date End Date Zofia Pascual MD [address] [place] [address] PCP - General Family Medicine 03/07/24 documented as of this encounter
--- OUTSIDE RECORDS SUMMARY | 2025-02-22 22:34 | XMS_ITS | Encounter Summary ---
Author Organization [employer] Address [address] [facility] 7t [place] [address] Care Team Providers Care Counter Sales Representative Name Role Phone Zofia Pascual MD Primary Care Provider [phone] Encounter Details Date Type Department Care Team (Late st Contact Info) Description 01/22/2025 Orders Only [place] [facility] [address] [place] [address] Provider, MD Candice Social History Tobacco Use [...] documented as of this encounter Care Teams Counter Sales Representative Relationship Specialty Start Date End Date Zofia Pascual MD [address] [place] [address] PCP - General Family Medicine 03/07/24 documented as of this encounter
--- OUTSIDE RECORDS SUMMARY | 2025-02-22 22:34 | XMS_ITS | Encounter Summary ---
Author Organization [employer] Address [address] [facility] 7[address] [place] [address] Care Team Providers Care Child Care Teacher Name Role Phone Zofia Pascual MD Primary Care Provider [phone] Encounter Details Date Type Department Care Team (Late st Contact Info) Description 02/22/2025 Orders Only GENERIC EXTERNAL DATA DEPARTMENT Provider, Generic External Data Social History Tobacco Use Types Packs/Day Years [...] t he electric, gas, oil or water [employer] threatened to shut off services in your [...] as of this encounter Plan of Treatment Pending Results Name Type Priority Associated Diagnoses Date /Time Comprehensive Metabolic Panel Lab Routine 02/22/2025 9:52 PM EDT documented as of this encounter Procedures Procedure Name Priority Date/Time Associated Diagnosis Comments LACTIC ACID Routine 02/22/2025 9:58 PM EDT CBC WITH AUTO DIFFERENTIAL Routine 02/22/2025 9:52 PM EDT COMPREHENSIVE METABOLIC PANEL Routine 02/22/2025 9:52 PM EDT documented in this encounter Results * Lactic Acid (02/22/2025 9:58 PM EDT) [facility] Lactic Acid 1.4 0.5 - 2.0 mmol/L [facility] 02/22/2025 9:58 PM EDT 02/22/2025 10:02 PM EDT us Generic External Data Provider LAB BLOOD ORDERAB LES Final Result [facility] [address] [place] [phone] * (ABNORMAL) CBC auto differential (02/22/2025 9:52 PM EDT) [facility] White Blood Count 12.9(H) 4.8 - 10.8 X10*3/uL [facility] Red Blood Count 4.48(L) 4.60 - 5.80 X10*6/uL [facility] Hemoglobin 13.7(L) 14.0 - 18.0 g/dl [facility] Hematocrit 41.7(L) 42.0 - 52.0 % [facility] Mean Corpuscular Volume 93.1 80.0 - 98.0 fL [facility] Mean Corpuscular Hemoglobin 30.6 27.0 - 33.0 pg [facility] Mean Corpuscular HGB Conc 32.9 31.0 - 36.0 g/dl [facility] Red Cell Distribution Width 12.8 11.0 - 16.0 % [facility] Platelet Count 403(H) 160 - 400 X10*3/uL [facility] Mean Platelet Volume 10.0 9.4 - 12.4 fL [facility] Neutrophils Percent Auto 85.0(H) 45 - 73 % [facility] Imm Gran Pct Auto 0.5(H) 0.0 - 0.4 % [facility] Lymphocytes Percent Auto 8.1(L) 20 - 40 % [facility] Monocytes Percent Auto 5.8 2 - 11 % [facility] Eosinophils Percent Auto 0.3 0 - 4 % [facility] Basophils Percent Auto 0.3 0 - 2 % [facility] NRBC Pct Auto 0.0 0.0 - 0.2 /100WBC [facility] Neutrophils Absolute Auto 11.0(H) 2.0 - 8.3 x10*3/uL [facility] Imm Gran Abs Auto 0.07(H) 0.00 - 0.03 X10*3/uL [facility] Lymphocytes Absolute Auto 1.1(L) 1.2 - 4.9 X10*3/uL [facility] Monocytes Absolute Auto 0.8 0.1 - 1.2 X10*3/uL [facility] Eosinophils Absolute Auto 0.0 0.0 - 0.4 X10*3/uL [facility] Basophils Absolute Auto 0.0 0.0 - 0.2 X10*3/uL [facility] NRBC Abs Auto 0.000 0.0 - 0.012 X10*3/uL [facility] 02/22/2025 9:52 PM EDT 02/22/2025 10:02 PM EDT us Generic External Data Provider LAB BLOOD ORDERAB LES Final Result [facility] [address] [place] [phone] documented in this encounter Visit Diagnoses Not on filedocumented in this encounter Additional Health Concerns Assessment Noted Time PHQ-9 Depression Total Score: 3 10/20/20 24 1:24 PM EST documented as of this encounter Care Teams Child Care Teacher Relationship Specialty Start Date End Date Zofia Pascual MD [address] [place] [address] PCP - General Family Medicine 03/07/24 documented as of this encounter
--- OUTSIDE RECORDS SUMMARY | 2025-02-22 22:34 | XMS_ITS | Encounter Summary ---
Author Organization [facility] Address [address] [place] [address] Care Team Providers Care Gear Tooth Grinding Machine Operator Name Role Phone Zofia Pascual MD Primary Care Provider [phone] Reason for Visit * Reason Comments ABNORMAL LABS Sent by PCP for elev ated d-dimer Encounter Details Date Type Department Care Team (Late st Contact Info) Description 02/19/2025 2:19 PM EDT - 02/19/2025 8:26 PM EDT Emergency [facility] Emergency [address] [place] [address] Pain (Primary Dx) Discharge Disposition: Left Against Medical Advice Social History Tobacco Use Types Packs/Day Years [...] Sign Reading Time Taken Comments Blood Pressure 133/79 02/19/2025 2:32 PM EDT Pulse 90 02/19/2025 2:32 PM EDT Temperature 37 ??C (98.6 ??F) 02/19/2025 2:32 PM EDT Respiratory Rate 18 02/19/2025 2:32 PM EDT Oxygen Saturation 97% 02/19/2025 2:32 PM EDT Inhaled Oxygen Concentration - - Weight - - Height - - Body Mass Index - - documented in this encounter Medications at Time of Discharge acetaminophen (TYLENOL) 500 mg tablet Take 2 tablets (1,000 mg total) by mouth every 8 (eight) hours. 180 tablet 01/23/2025 ciprofloxacin (CIPRO) 500 mg tablet Take 1 tablet (500 mg total) by mouth 2 (two) times a day. 5 each 02/07/2025 metroNIDAZOLE (FLAGYL) 500 mg tablet Take 1 tablet (500 mg total) by mouth 3 (three) times a day. Do not use mouth wash or consume alcohol until 48 hours after last dose 7 tablet 02/07/2025 pantoprazole (PROTONIX) 40 mg EC tablet Take 1 tablet (40 mg total) by mouth 1 (one) time each day before breakfast. Do not crush, chew, or split. 30 each 2 01/23/2025 04/23/2025 polyethylene glycol (MIRALAX) 17 gram packet Take 17 g by mouth 1 (one) time each day. 510 g 01/23/2025 02/22/2025 simethicone (MYLICON) 80 mg chewable tablet Chew 1 tablet (80 mg total) every 6 (six) hours if needed for flatulence. 120 tablet 01/23/2025 traMADoL (ULTRAM) 50 mg tablet Take 1 tablet (50 mg total) by mouth every 6 (six) hours if needed for moderate pain. Max Daily Amount: 200 mg 10 tablet 02/07/2025 ursodioL (ACTIGALL) 300 mg capsule Take 1 capsule (300 mg total) by mouth 2 (two) times a day. 60 each 5 01/23/2025 07/22/2025 wheat dextrin 3 gram/3.5 gram powder in packet Take 1 packet by mouth 1 (one) time each day. 30 packet 01/23/2025 documented as of this encounter Discharge Disposition Disposition Code Departure Means Destination Left Against Medical Advice documented in this encounter Progress Notes * Lavelle Nunez RN - 02/19/2025 2:25 PM EDT Pt comes in after being sent by PCP for elevated d-dimer; has complaints of bilateral thigh pain. Pt states he had routine labs drawn by PCP prior to bariatric surgery. Pt denies shortness of breath and chest pain. documented in this encounter Plan of Treatment Upcoming Encounters Date Type Department Care Team (Late st Contact Info) Description 03/06/2025 10:30 AM EDT Telemedicine Bariatric Surgery - [place] [address] [facility] [address] [place] [phone] [address] [facility] Sourav [address] [place] [phone] 04/05/2025 11:15 AM EDT Office Visit Bariatric Surgery - [place] [address] [facility] [address] [place] [address] Jessy Gorman PA [address] [phone] documented as of this encounter Procedures Procedure Name Priority Date/Time Associated Diagnosis Comments VAS US DUPLEX LOWER EXT VENOUS BILAT STAT 02/19/2025 4:19 PM EDT Pain documented in this encounter Results * Vascular US duplex lower extremity venous bilateral (02/19/2025 4:19 PM EDT) Anatomical Region Laterality Modality Vascular, Abdomen Ultrasound 02/19/2025 4:30 PM EDT Impressions 02/19/2025 4:30 PM EDT NO RIGHT OR LEFT LOWER EXTREMITY DEEP VENOUS THROMBOSIS. -------- FINAL REPORT -------- Dictated By: Cynthia Ferraro Dictated Date: 02/19/2025 16:30 ET Assigned Physician: Cynthia Ferraro Reviewed and Electronically Signed By: Cynthia Ferraro Signed Date: 02/19/2025 16:30 ET Workstation ID: [id number] Transcribed By: Self Edit Transcribed Date: 02/19/2025 16:30 ET Narrative 02/19/2025 4:30 PM EDT PROCEDURE: VAS US DUPLEX LOWER EXT VENOUS BILAT INDICATION: pain bilat leg pain , elevated d dimer TECHNIQUE: 2-D and color Doppler imaging of the lower extremity venous vasculature with compression and augmentation maneuvers. COMPARISON: No priors available. FINDINGS: RIGHT: There is normal flow, compression, and augmentation from the common femoral through the popliteal vein. Visualized calf veins unremarkable. LEFT: There is normal flow, compression, and augmentation from the common femoral through the popliteal vein. Visualized calf veins unremarkable. Procedure Note Cynthia Ferraro MD - 02/19/2025 PROCEDURE: VAS US DUPLEX LOWER EXT VENOUS BILAT INDICATION: pain bilat leg pain , elevated d dimer TECHNIQUE: 2-D and color Doppler imaging of the lower extremity venousvasculature with compression and augmentation maneuvers. COMPARISON: No priors available. FINDINGS: RIGHT: There is normal flow, compression, and augmentation from the commonfemoral through the popliteal vein. Visualized calf veins unremarkable. LEFT: There is normal flow, compression, and augmentation from the commonfemoral through the popliteal vein. Visualized calf veins unremarkable. IMPRESSION: NO RIGHT OR LEFT LOWER EXTREMITY DEEP VENOUS THROMBOSIS. -------- FINAL REPORT -------- Dictated By: Cynthia Ferraro Dictated Date: 02/19/2025 16:30 ET Assigned Physician: Cynthia Ferraro Reviewed and Electronically Signed By: Cynthia Ferraro Signed Date: 02/19/2025 16:30 ET Workstation ID: [id number] Transcribed By: Self Edit Transcribed Date: 02/19/2025 16:30 ET us Evin Gordon MD CV VASCULAR PROCEDURES Fi nal Result documented in this encounter Visit Diagnoses Diagnosis Pain- Primary Generalized pain documented in this encounter Care Teams Gear Tooth Grinding Machine Operator Relationship Specialty Start Date End Date Zofia Pascual MD [address] [place] [phone] PCP - General Family Medicine 09/28/24 documented as of this encounter
--- OUTSIDE RECORDS SUMMARY | 2025-02-22 22:34 | XMS_ITS | Encounter Summary ---
Author Organization [employer] Address [address] [facility] [address] [place] [address] Care Team Providers Care Chief Of Staff Name Role Phone Zofia Pascual MD Primary Care Provider [phone] Encounter Details Date Type Department Care Team ([facility] st Contact Info) Description 02/19/2025 Orders Only [facility] [address] [place], [place] [phone] Lina Caba MD [address] [place] [address] Social History Tobacco Use Types Packs/Day Years [...] Procedure Name Priority Date/Time Associated Diagnosis Comments T4, FREE Routine 02/19/2025 11:08 AM EDT documented in this encounter Results * T4, Free (02/19/2025 11:08 AM EDT) Free T4 (Free Thyroxine) 0.91 0.71 - 1.85 ng/dL [facility] 02/19/2025 11:0 8 AM EDT 02/19/2025 11:11 AM EDT Lina Caba MD LAB BLOOD ORDERABLES Final Result [facility] [address] [place] [address] [phone] documented in this encounter Visit Diagnoses Not on filedocumented in this encounter Additional Health Concerns Assessment Noted Time PHQ-9 Depression Total Score: 3 10/20/20 24 1:24 PM EST documented as of this encounter Care Teams Chief Of Staff Relationship Specialty Start Date End Date Zofia Pascual MD [address] [place] [phone] PCP - General Family Medicine 03/07/24 documented as of this encounter
--- OUTSIDE RECORDS SUMMARY | 2025-02-22 22:34 | XMS_ITS | Encounter Summary ---
Author Organization [email or web address] Address [address] [facility] [address] [place] [address] Care Team Providers Care Scholastic Aptitude Test Grader Name Role Phone Zofia Pascual MD Primary Care Provider [phone] Encounter Details Date Type Department Care Team ([facility] st Contact Info) Description 09/13/2024 Telephone [facility] [address] [place] [address] Zofia Pascual MD [address] [place] [address] Social History Tobacco Use Types Packs/Day Years [...] documented as of this encounter Care Teams Scholastic Aptitude Test Grader Relationship Specialty Start Date End Date Zofia Pascual MD [address] [place] [phone] PCP - General Family Medicine 03/07/24 documented as of this encounter
--- OUTSIDE RECORDS SUMMARY | 2025-02-22 22:34 | XMS_ITS | Encounter Summary ---
Author Organization [employer] Address [address] [facility] [address] [place] [address] Care Team Providers Care Chopper Gun Operator Name Role Phone Zofia Pascual MD Primary Care Provider [phone] Encounter Details Date Type Department Care Team ([facility] st Contact Info) Description 02/05/2025 Orders Only [facility]S [address] [place], [place] [phone] Provider, MD Candice Social History Tobacco Use [...] documented as of this encounter Care Teams Chopper Gun Operator Relationship Specialty Start Date End Date Zofia Pascual MD [address] [place] [address] PCP - General Family Medicine 03/07/24 documented as of this encounter
--- OUTSIDE RECORDS SUMMARY | 2025-02-22 22:34 | XMS_ITS | Clinical Summary ---
Author Organization [facility] Address [address] [place] [address] Phone Care Team Providers Care Editor News Name Role Phone Zofia Pascual MD Primary Care Provider [phone] Allergies Active Allergy Reactions Criticality Noted Date Comments Amoxicillin Rash 03/13/2024 Penicillins Rash,Swelling Medium 03/07/2024 Medications acetaminophen (TYLENOL) 500 mg tablet Take [...] Problem Noted Date Diagnosed Date Morbid obesity ([facility] V24, [facility] V28) 2024 Class 3 severe obesity with body mass index (BMI) of 40.0 to 44.9 in adult 10/02/2024 Asthma 05/01/2024 GERD (gastroesophageal reflux disease) HTN (hypertension) 05/01/2024 Encounters Date Type Department Care Team Description 02/20/2025 11:30 AM EDT Office Visit Bariatric [address] [phone] Jessy Gorman PA Right lower quadrant abdominal pain (Primary Dx) 02/19/2025 2:19 PM EDT - 02/19/2025 8:26 PM EDT Emergency [facility] Emergency [address] [place] [phone] Pain (Primary Dx) Discharge Disposition: Left Against Medical Advice 02/13/2025 4:30 PM EDT Office Visit Bariatric [address] [phone] Joe De Guzman MD S/P laparoscopic sleeve gastrectomy (Primary Dx) 02/09/2025 Telephone Bariatric Surgery [address] [place] [phone] Jasmin Beaver RN 02/02/2025 11:00 AM EDT - 02/02/2025 1:00 PM EDT Surgery [facility] Main OR [address] [place] [phone] Joe De Guzman MD DAVINCI SLEEVE GASTRECTOMY [[id number] (CPT??)] 02/02/2025 10:38 AM EDT Anesthesia Event [facility] Main OR [address] [place] [phone] Christopher Barone MD Vermes, Rachie, CRNA 02/02/2025 9:13 AM EDT - 02/07/2025 6:52 PM EDT Hospital Encounter [facility] Medical Surgical Unit [address] [place] [phone] Joe De Guzman MD Hypoxia (Primary Dx); Morbid obesity (CMS/HCC V24, CMS/[facility] V28) Discharge Disposition: Home or Self Care 01/23/2025 1:45 PM EDT Consult Bariatric Surgery - [address] [phone] Jessy Gorman PA Class 3 severe obesity due to excess calories with serious comorbidity and body mass index (BMI) of 40.0 to 44.9 in adult (CMS/HCC V24, CMS/HCC V28) (Primary Dx) 01/23/2025 Telephone Bariatric Surgery - [address] [phone] Joe De Guzman MD Advice Only (Call from [facility]) 01/22/2025 11:24 AM EDT - 01/22/2025 11:59 PM EDT Hospital Encounter [facility] Xray [address] [place] [phone] Discharge Disposition: Home or Self Care 01/22/2025 11:00 AM EDT Pre-Admission Testing [facility] Pre-Admission Testing [address] [place] [phone] Morbid obesity ([facility] V24, [facility] V28) 01/11/2025 8:15 AM EST Office Visit Bariatric Surgery - [address] [phone] Joe De Guzman MD Class 3 severe obesity due to excess calories with body mass index (BMI) of 40.0 to 44.9 in adult, unspecified whether serious comorbidity present (CMS/[facility] V24, [facility] V28) (Primary Dx) 01/05/2025 9:30 AM EST Nutrition Bariatric Surgery - [address] [phone] Class 3 severe obesity with body mass index (BMI) of 40.0 to 44.9 in adult, unspecified obesity type, unspecified whether serious comorbidity present (CMS/[facility] V24, CMS/[facility] V28) (Primary Dx) from Last 3 Months Surgical History Surgery Date Site/Laterality Comments NO PAST SURGERIES Medical History Medical History Date Comments Sleep apnea Asthma Hypertension Morbid obesity (CMS/[facility] V24, CMS/[facility] V28) Social History Tobacco Use Types Packs/Day [...] Pulse 114 02/20/2025 11:30 AM EDT Temperature 37 ??C (98.6 ??F) 02/19/2025 2:32 PM EDT Respiratory Rate 18 02/19/2025 2:32 PM EDT Oxygen Saturation 97% 02/19/2025 2:32 PM EDT Inhaled Oxygen Concentration - - Weight 130 kg (285 lb 9.6 oz) 02/20/2025 11:30 A M EDT Height 180.3 cm (5' 11 ) 02/20/2025 11:30 AM EDT Body Mass Index 39.83 02/20/2025 11:30 AM EDT Plan of Treatment Upcoming Encounters Date Type Department Care Team (Late st Contact Info) Description 03/06/2025 10:30 AM EDT Telemedicine Bariatric Surgery - [place] [address] [phone] Catrachita Garcia, RD [address] [phone] 04/05/2025 11:15 AM EDT Office Visit Bariatric Surgery - [place] [address] [phone] Jessy Gorman PA [address] [phone] Health Maintenance Due Date Last Done Comments Hepatitis B Vaccines (1 of 3 - 19+ 3-dose series) 2009 Pneumococcal Vaccine: Pediatrics (0 to 5 Years) and At-Risk Patients (6 to 64 Years) (1 of 2 - PCV) 2009 Social Influencers of Health Screening 06/02/2024 COVID-19 Vaccine (3 - season) 2024 04/08/2021, 03/11/2021 Influenza Vaccine (Season Ended) 2025 Depression Screening 10/20/2025 10/20/2024 Hypertension/CHF/CAD Annual BMP Blood Test 02/19/2026 02/19/2025, 02/07/2025, 02/06/2025, Additional history exists Cholesterol Screening (Lipid Panel) [...] BILAT STAT 02/19/2025 4:19 PM EDT Pain CBC WITH AUTO DIFFERENTIAL Routine 02/07/2025 8:48 [...] ENDOTRACHEAL(NO CHARGE) Routine 02/02/2025 11:05 AM EDT MS LAP SURGICAL GASTRIC RESTRICTIVE PROCEDURE LONGITUDINAL GASTRECTOMY [...] EDT Morbid obesity (CMS/HCC V24, CMS/HCC V28) LIPID PANEL Routine 03/27/2024 from Last 3 Months or Most Recently Relevant to Health Maintenance Results * Vascular US duplex lower extremity [...] Signed Date: 02/19/2025 16:30 ET Workstation ID: [id number] Transcribed By: Self Edit Transcribed Date: 02/19/2025 [...] Signed Date: 02/19/2025 16:30 ET Workstation ID: [id number] Transcribed By: Self Edit Transcribed Date: 02/19/2025 16:30 ET us Evin Gordon MD CV VASCULAR PROCEDURES Fi nal Result * (ABNORMAL) CBC auto differential (02/07/2025 8:48 AM EDT) Only the most recent of6 resultswithin the time period is included. [facility] Signature WBC 9.7 4.8 - 10.8 K/[facility] LAB HEMETOLOGY METHOD 02/07/2025 9:06 AM EDT [facility] RBC 4.00(L) 4.50 - 5.50 M/mcL LAB HEMETOLOGY METHOD 02/07/2025 9:06 AM [facility] Hemoglobin 12.4(L) 13.5 - 17.5 g/dL LAB HEMETOLOGY METHOD 02/07/2025 9:06 AM [facility] Hematocrit 37.6(L) 42.0 - 54.0 % LAB HEMETOLOGY METHOD 02/07/2025 9:06 AM [facility] MCV 93.1 79.0 - 98.0 FL LAB HEMETOLOGY METHOD 02/07/2025 9:06 AM [facility] MCH 30.7 27.0 - 32.0 pcg LAB HEMETOLOGY METHOD 02/07/2025 9:06 AM [facility] MCHC 33.0 32.0 - 37.0 g/dL LAB HEMETOLOGY METHOD 02/07/2025 9:06 AM [facility] RDW 12.9 11.0 - 15.0 % LAB HEMETOLOGY METHOD 02/07/2025 9:06 AM [facility] Platelets 225 130 - 400 K/mcL LAB HEMETOLOGY METHOD 02/07/2025 9:06 AM [facility] MPV 10.2 7.0 - 11.0 FL LAB HEMETOLOGY METHOD 02/07/2025 9:06 AM [facility] NRBC 0.0 <1.0 % LAB HEMETOLOGY METHOD 02/07/2025 9:06 AM [facility] NRBC Absolute 0.00 <0.10 K/mcL LAB HEMETOLOGY METHOD 02/07/2025 9:06 AM [facility] Neutrophils Relative 84.9 % LAB HEMETOLOGY METHOD 02/07/2025 9:06 AM [facility] Lymphocytes Relative 6.0 % LAB HEMETOLOGY METHOD 02/07/2025 9:06 AM [facility] Monocytes Relative 7.4 % LAB HEMETOLOGY METHOD 02/07/2025 9:06 AM [facility] Eosinophils Relative 0.4 % LAB HEMETOLOGY METHOD 02/07/2025 9:06 AM [facility] Basophils Relative 0.2 % LAB HEMETOLOGY METHOD 02/07/2025 9:06 AM [facility] Immature Granulocytes Relative 1.1 % LAB HEMETOLOGY METHOD 02/07/2025 9:06 AM [facility] Neutrophils Absolute 8.24(H) 1.50 - 7.00 K/mcL LAB HEMETOLOGY METHOD 02/07/2025 9:06 AM [facility] Lymphocytes Absolute 0.58(L) 1.00 - 5.00 K/mcL LAB HEMETOLOGY METHOD 02/07/2025 9:06 AM [facility] Monocytes Absolute 0.72 0.20 - 1.00 K/mcL LAB HEMETOLOGY METHOD 02/07/2025 9:06 AM [facility] Eosinophils Absolute 0.04 0.00 - 0.50 K/mcL LAB HEMETOLOGY METHOD 02/07/2025 9:06 AM [facility] Basophils Absolute 0.02 0.00 - 0.20 K/mcL LAB HEMETOLOGY METHOD 02/07/2025 9:06 AM [facility] Immature Granulocytes Absolute 0.11(H) 0.00 - 0.03 K/mcL LAB HEMETOLOGY METHOD 02/07/2025 9:06 AM [facility] Blood Venous blood specimen / Unknown Venipuncture / Unknown 02/07/2025 8:48 AM EDT 02/07/2025 8:56 AM EDT us Angelica R Junior PA LAB BLOOD ORDERABLES Final Res ult Performing Organization Address [facility]/ZIP Co de Phone Number [facility] [address] [place] [address], [place] [phone] * Phosphorus (02/07/2025 8:48 AM EDT) Only the most recent of5 resultswithin the time period is included. Phosphorus 2.5 2.5 - 4.5 mg/dL LAB CHEMISTRY METHOD 02/07/2025 9:26 AM EDT [facility] Blood Venous blood specimen / Unknown Venipuncture / Unknown 02/07/2025 8:48 AM EDT 02/07/2025 8:56 AM EDT Angelica R Junior PA LAB BLOOD ORDERABLES Final Res ult Performing Organization Address [facility] de Phone Number [facility] [address] [place] [address], [place] [phone] * Magnesium (02/07/2025 8:48 AM EDT) Only the most recent of6 resultswithin the time period is included. Magnesium 2.2 1.9 - 2.6 mg/dL LAB CHEMISTRY METHOD 02/07/2025 9:26 AM EDT [facility] Blood Venous blood specimen / Unknown Venipuncture / Unknown 02/07/2025 8:48 AM EDT 02/07/2025 8:56 AM EDT Angelica R Junior PA LAB BLOOD ORDERABLES Final Res ult Performing Organization Address [facility] Co de Phone Number [facility] [address] [place] [address], [place] [phone] * (ABNORMAL) Basic metabolic panel (02/07/2025 8:48 AM EDT) Only the most recent of6 resultswithin the time period is included. Sodium 135 133 - 145 mmol/L LAB CHEMISTRY METHOD 02/07/2025 9:26 AM [facility] Potassium 3.6 3.5 - 5.5 mmol/L LAB CHEMISTRY METHOD 02/07/2025 9:26 AM [facility] Chloride 101 96 - 110 mmol/L LAB CHEMISTRY METHOD 02/07/2025 9:26 AM [facility] CO2 26 21 - 32 mmol/L LAB CHEMISTRY METHOD 02/07/2025 9:26 AM [facility] Anion Gap 8 3 - 11 LAB CHEMISTRY METHOD 02/07/2025 9:26 AM [facility] Glucose 100 70 - 100 mg/dL LAB CHEMISTRY METHOD 02/07/2025 9:26 AM [facility] BUN 14 5 - 25 mg/dL LAB CHEMISTRY METHOD 02/07/2025 9:26 AM [facility] Creatinine 0.61(L) 0.70 - 1.30 mg/dL LAB CHEMISTRY METHOD 02/07/2025 9:26 AM [facility] eGFR 129 >=60 mL/min/1. 73m2 LAB CHEMISTRY METHOD 02/07/2025 9:26 AM [facility] Comment:Calculation based on the??Chronic Kidney Disease Epidemiology Collaboration (CKD-EPI) equation refit??without adjustment for race. BUN/Creatinine Ratio 23.0 LAB CHEMISTRY METHOD 02/07/2025 9:26 AM [facility] Calcium 8.5 8.5 - 10.5 mg/dL LAB CHEMISTRY METHOD 02/07/2025 9:26 AM [facility] Blood Venous blood specimen / Unknown Venipuncture / Unknown 02/07/2025 8:48 AM EDT 02/07/2025 8:56 AM EDT us Angelica VALERO LAB BLOOD ORDERABLES Final Res ult [facility] [address] [place] [address], * (ABNORMAL) Culture abscess with gram stain (02/06/2025 3:49 PM EDT) CULTURE, ABSCESS Streptococcus viridans group(A) SONU 02/15/2025 11:45 AM EDT [facility] Comment: Susceptibility testing not routinely performed. [...] ve Staphylococcus aureus(A) SONU 02/15/2025 11:45 AM EDT [facility] Comment: The organism value for this result has been updated. These results have been appended to the previously preliminary verified report. Edited result: Previously reported as Staphylococcus aureus on 02/09/2025 at 1115 EDT. CULTURE, ABSCESS Very Light Growth Harriet albicans(A) SONU 02/15/2025 11:45 AM EDT [facility] Comment: The organism value for this result has been updated. These results have been appended to the previously preliminary verified report. Edited result: Previously reported as Yeast on 02/10/2025 at 0953 EDT. CULTURE, ABSCESS Atopobium minutum(A) SONU 02/15/2025 11:45 AM EDT [facility] Comment: Anaerobic susceptibilty testing is not routinely performed, if further therapeutic inforamation is required, please consult an Infectious Disease Specialist. The organism value for this result has been updated. These results have been appended to the previously preliminary verified report. Gram Stain Result Many Polymorphonuclear leukocytes(A) 02/15/2025 11:45 AM EDT [facility] Gram Stain Result No Epithelial cells(A) 02/15/2025 11:45 AM EDT [facility] Gram Stain Result Many Gram positive cocci in pairs, chains and clusters(A) 02/15/2025 11:45 AM EDT [facility] Gram Stain Result Moderate Gram positive bacilli(A) 02/15/2025 11:45 AM EDT [facility] Gram Stain Result Few Gram negative bacilli(A) 02/15/2025 11:45 AM EDT [facility] Aspirate Peritoneal cavity structure / Unknown [...] aureus Trimethoprim/Sulfamethoxazo le SONU <=10 ug/ml: Susceptible us Jason Fan MD LAB MICROBIOLOGY - GENERAL TRESAE SARAVANAN Final Result [facility] [address] [place] [address], [place] [phone] * IR Drain Fluid Cath Perit/Retro Perc [...] Amplatz wire. Tract dilated up to 10 Bahraini and placement of a 10 Bahraini pigtail catheter. A total of 40 mL of pus aspirated. Sample sent for microbiological evaluation. The tube was secured in place and placed to a drainage bag. Post placement CT images obtained. The patient tolerated the procedure well and left the department in stable condition without immediate complications. Scanner: [email or web address] [address] Dose reduction technique: AEC (automated exposure control) Dose: total exam DLP 811 mGY per cm FINDINGS: Initial axial images obtained again demonstrate right lower quadrant abscess. Images obtained after catheter placement demonstrate pigtail well formed within the collection. The collection is significant smaller immediately post placement. Consider daily flushing of the catheter. CONCLUSION: CT-guided placement of 10 Bahraini pigtail catheter into right lower quadrant abscess. -------- FINAL REPORT -------- Dictated By: Jason Fan Dictated Date: 02/06/2025 17:47 ET Assigned Physician: Jason Fan Reviewed and Electronically Signed By: Jason Fan Signed Date: 02/06/2025 17:50 ET Workstation ID: [id number] Transcribed By: Self Edit Transcribed Date: 02/06/2025 [...] short Amplatz wire. Tractdilated up to 10 Bahraini and placement of a 10 Bahraini pigtail catheter. Atotal of 40 mL of pus aspirated. Sample sent for microbiologicalevaluation. The tube was secured in place and placed to a drainage bag.Post placement CT images obtained. The patient tolerated the procedurewell and left the department in stable condition without immediatecomplications. Scanner: nuevoStage [address] Dose reduction technique: AEC (automated exposure control) Dose: total exam DLP 811 mGY per cm FINDINGS: Initial axial images obtained again demonstrate right lowerquadrant abscess. Images obtained after catheter placement demonstrate pigtail well formedwithin the collection. The collection is significant smaller immediatelypost placement. Consider daily flushing of the catheter. CONCLUSION: CT-guided placement of 10 Bahraini pigtail catheter into right lowerquadrant abscess. -------- FINAL REPORT -------- Dictated By: Jason Fan Dictated Date: 02/06/2025 17:47 ET Assigned Physician: Jason Fan Reviewed and Electronically Signed By: Jason Fan Signed Date: 02/06/2025 17:50 ET Workstation ID: [id number] Transcribed By: Self Edit Transcribed Date: 02/06/2025 [...] effusion. Pulmonary opacities in the lung bases [id number]-zafvgal-[id number]-right and in the lingula may represent atelectasis [...] effusion. Pulmonary opacities in the lung bases [id number]-right and in the lingula may represent atelectasis [...] by: Monik Julien MD on 02/05/2025 23:51:37 us Kyle VALERO IMG CT PROCEDURES Edited Resu [...] Signed Date: 02/06/2025 08:12 ET Workstation ID: [id number] Transcribed By: Self Edit Transcribed Date: 02/06/2025 [...] Signed Date: 02/06/2025 08:12 ET Workstation ID: [id number] Transcribed By: Self Edit Transcribed Date: 02/06/2025 08:10 ET Kyle VALERO IMG XR PROCEDURES Final Resul [...] evaluation with echocardiography should be considered. Code 96396 -------- FINAL REPORT -------- Dictated By: Richie Hernandez Dictated Date: 02/04/2025 08:25 ET Assigned Physician: Richie Hernandez Reviewed and Electronically Signed By: Richie Hernandez Signed Date: 02/04/2025 08:27 ET Workstation ID: [id number] Transcribed By: Self Edit Transcribed Date: 02/04/2025 [...] further evaluation withechocardiography should be considered. Code 21720 -------- FINAL REPORT -------- Dictated By: Richie Hernandez Dictated Date: 02/04/2025 08:25 ET Assigned Physician: Richie Hernandez Reviewed and Electronically Signed By: Richie Hernandez Signed Date: 02/04/2025 08:27 ET Workstation ID: [id number] Transcribed By: Self Edit Transcribed Date: 02/04/2025 08:25 ET us Joe De Guzman MD IMG XR PROCEDURES Final Resu lt * ECG 12 lead (02/03/2025 4:15 PM EDT) Only the most recent of2 resultswithin the time period is included. Ventricular Rate ECG 111 BPM GEMUSE Atrial Rate 111 BPM GEMUSE P-R Interval 148 ms GEMUSE QRS Duration 94 ms GEMUSE Q-T Interval 324 ms GEMUSE QTc 440 ms GEMUSE P Wave [place] 19 degrees GEMUSE R [place] 51 degrees GEMUSE T [place] 3 degrees GEMUSE ECG Interpretation Sinus tachycardia Otherwise normal ECG When compared with ECG of 03-FEB-2025 16:14, (unconfirmed) No significant change was found Confirmed by JAZLYN BAUER ([id number]) on 02/04/2025 7:56:55 AM GEMUSE 02/03/2025 4:15 PM EDT 02/04/2025 7:56 AM EDT us Joe De Guzman MD ECG ORDERABLES Final Result GEMUSE * (ABNORMAL) POCT Glucose, blood (02/02/2025 12:57 PM EDT) Glucose POCT 175(H) 70 - 100 mg/dL 02/02/2025 12:58 PM EDT [facility] Blood Capillary blood specimen / Unknown 02/02/2025 12:57 PM EDT 02/02/2025 12:59 PM EDT us Joe De Guzman MD LAB POINT OF CARE TE ST DOCKED DEVICE UNSOLICITED RESULTS Final Result Performing Organization Address City/[facility] Co de Phone Number [facility] [address] [place] [address], [place] [phone] * Tissue exam (02/02/2025 12:05 PM EDT) [...] parietal cells are sparse in this the passenger service representative sections submitted (atrophy of oxyntic mucosa). Definitive intestinal/goblet cell metaplasia is not identified in passenger service representative sections. Focal pyloric metaplasia is noted. An immunohistochemical study for INSM1 shows that there is a patchy increase (linear and nodular) in enterochromaffin-like cells distributed in linear groups and small nodules of greater than 5 consecutive INSM1-positive cells. 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 Correlation with clinical and serologic studies is recommended, as clinically indicated. 7:06 PM EDT [facility] Comment Concrete Tile Machine Operator slide(s) from this case have been presented at Anatomic Pathology Intradepartmental Review Conference on 02/05/25. 7:06 PM EDT [facility] Gross Description A. Stomach, : Labeled stomach . Received in formalin is a 18 x 4 x 3 cm portion of stomach with an irregular staple line. The serosa is ufng-pink, smooth and glistening with minimal attached adipose tissue. The gastric lumen contains bloody mucoid material. The mucosa is fung-pink to red, with unremarkable rugal folds. The wall (muscularis) is uniform in thickness and averages 0.2 cm. The margin adjacent to the staple lines is inked black. Concrete Tile Machine Operator sections are submitted in one cassette, including a perpendicular section to the margin and random stomach, three pieces. RAMYA 7:06 PM EDT [facility] Disclaimer NOTE: The immunohistochemical tests and in situ hybridization tests were developed and their performance characteristics were determined by [facility]. They have not been cleared [...] 10% NB formalin fixed and paraffin embedded. 7:06 PM EDT [facility] Tissue Stomach structure / Unknown 02/02/2025 12:05 PM EDT 02/02/2025 2:21 PM EDT Joe De Guzman MD LAB PATHOLOGY ORDERABLES Fin al Result [facility] [address] [place] [address], [place] [phone] * TH AN ENDOTRACHEAL(NO CHARGE) (02/02/2025 11:05 AM EDT) Estevan Calderon CRNA - 02/02/2025 11:05 AM EDT Estevan [...] mask + OA or adjuvant +/- NMBA Christopher Barone MD ANESTHESIA ORDERABLES Edited R [...] LAB BLOOD BANK TEST ORDERABLES Final Result [facility] [address] [place] [address], [place] [phone] * XR Chest 2 Views (01/22/2025 11:33 AM EDT) Anatomical Region Laterality Modality Body Radiographic Concepcion ging 01/22/2025 11:3 9 AM EDT Impressions 01/22/2025 11:41 AM EDT No acute pulmonary disease. The cardiac silhouette is at the upper limits of normal, with a cardiothoracic ratio of 0.48. As this is unusual in this age group, further evaluation with echocardiography should be considered. Code 37267 -------- FINAL REPORT -------- Dictated By: Richie Hernandez Dictated Date: 01/22/2025 11:39 ET Assigned Physician: Richie Hernandez Reviewed and Electronically Signed By: Richie Hernandez Signed Date: 01/22/2025 11:41 ET Workstation ID: [id number] Transcribed By: Self Edit Transcribed Date: 01/22/2025 [...] further evaluation with echocardiography should beconsidered. Code 89409 -------- FINAL REPORT -------- Dictated By: Richie Hernandez Dictated Date: 01/22/2025 11:39 ET Assigned Physician: Richie Hernandez Reviewed and Electronically Signed By: Richie Hernandez Signed Date: 01/22/2025 11:41 ET Workstation ID: [id number] Transcribed By: Self Edit Transcribed Date: 01/22/2025 11:39 ET us Jessy VALERO IMG XR PROCEDURES Final Resu lt * (ABNORMAL) Urinalysis with reflex microscopic and culture (01/22/2025 10:55 AM EDT) Specific [place] Urine 1.025 1.003 - 1.030 LAB URINALYSIS - AUTOMATED METHOD 01/22/2025 11:40 AM [facility] pH, Urine 5.5 5.0 - 8.0 pH LAB URINALYSIS - AUTOMATED METHOD 01/22/2025 11:40 AM [facility] Leukocytes, Urine Negative Negative LAB URINALYSIS - AUTOMATED METHOD 01/22/2025 11:40 AM [facility] Nitrite, Urine Negative Negative LAB URINALYSIS - AUTOMATED METHOD 01/22/2025 11:40 AM [facility] Protein, Urine Negative <=Trace mg/dL LAB URINALYSIS - AUTOMATED METHOD 01/22/2025 11:40 AM [facility] Glucose, Urine Negative Negative mg/dL LAB URINALYSIS - AUTOMATED METHOD 01/22/2025 11:40 AM [facility] [facility] Ketones, Urine Trace(A) Negative mg/dL LAB URINALYSIS - AUTOMATED METHOD 01/22/2025 11:40 AM EDT [facility] Urobilinogen, Urine 1.0 0.2 - 1.0 mg/dL LAB URINALYSIS - AUTOMATED METHOD 01/22/2025 11:40 AM EDT [facility] Bilirubin, Urine Negative Negative LAB URINALYSIS - AUTOMATED METHOD 01/22/2025 11:40 AM EDT [facility] Blood, Urine Negative Negative LAB URINALYSIS - AUTOMATED METHOD 01/22/2025 11:40 AM EDT [facility] Urine Urine specimen obtained by clean catch procedure / Unknown Non-blood Collection / Unknown 01/22/2025 10:55 AM EDT 01/22/2025 11:34 AM EDT Jessy VALERO LAB URINE ORDERABLES Final R esult Performing Organization Address City/[facility]/ZIP Co de Phone Number [facility] [address] [place] [address], [place] [phone] * Shin urine culture tube (01/22/2025 10:55 AM EDT) Extra Tube Hold for add-ons. 01/22/2025 1:01 PM EDT [facility] Comment:Auto resulted. Urine Urine specimen obtained by clean catch procedure / Unknown Non-blood Collection / Unknown 01/22/2025 10:55 AM EDT 01/22/2025 11:34 AM EDT us Jessy VALERO LAB URINE ORDERABLES Final R esult Performing Organization Address City/[facility]/ZIP Co de Phone Number [facility] [address] [place] [address], [place] [phone] * Prothrombin time with INR (01/22/2025 10:55 AM EDT) Protime 12.2 10.6 - 13.9 sec LAB COAGULATION METHOD 01/22/2025 11:43 AM EDT [facility] INR 1.0 LAB COAGULATION METHOD 01/22/2025 11:43 AM EDT [facility] Blood Venous blood specimen / Unknown Venipuncture / Unknown 01/22/2025 10:55 AM EDT 01/22/2025 11:34 AM EDT Jessy VALERO LAB BLOOD ORDERABLES Final R esult [facility] [address] [place] [address], * (ABNORMAL) Lipid panel (03/27/2024) LDL/HDL Ratio [...] currently active code status orders. Care Teams Editor News Relationship Specialty Start Date End Date Zofia Pascual MD [address] [place] [address] PCP - General Family Medicine 09/28/24
--- OUTSIDE RECORDS SUMMARY | 2025-02-22 22:34 | XMS_ITS | Encounter Summary ---
Author Organization [employer] Address [address] [facility] [address] [place] [address] Care Team Providers Care Beehive Kiln Supervisor Name Role Phone Zofia Pascual MD Primary Care Provider [phone] Encounter Details Date Type Department Care Team (Late st Contact Info) Description 02/20/2025 Orders Only [facility] [address] [place] [address] Provider, MD Candice Social History Tobacco Use [...] Procedure Name Priority Date/Time Associated Diagnosis Comments VASC US LOWER EXTREMITY VENOUS DUPLEX BILATERAL Routine 02/19/2025 1:17 PM EDT documented in this encounter Results * VASC US Lower Extremity Venous Duplex Bilateral (02/19/2025 1:17 PM EDT) us Historical Provider CV VASCULAR PROCEDURES Fi nal Result documented in this encounter Visit Diagnoses Not on filedocumented in this encounter Additional Health Concerns Assessment Noted Time PHQ-9 Depression Total Score: 3 10/20/20 24 1:24 PM EST documented as of this encounter Care Teams Beehive Kiln Supervisor Relationship Specialty Start Date End Date Zofia Pascual MD [address] [place] [address] PCP - General Family Medicine 03/07/24 documented as of this encounter
--- OUTSIDE RECORDS SUMMARY | 2025-02-22 22:34 | XMS_ITS | Clinical Summary ---
Author Organization [employer] Address [address] [facility] [address] [place] [address] Care Team Providers Care Licensed Nursing Assistant Name Role Phone Zofia Pascual MD Primary Care Provider [phone] Allergies Active Allergy Reactions Criticality Noted Date [...] Encounters Date Type Department Care Team Description 02/22/2025 Orders Only GENERIC EXTERNAL DATA DEPARTMENT Provider, Generic External Data 02/20/2025 Orders Only [facility] [address] [place] [address] Provider, MD Candice 02/19/2025 Orders Only [facility] [address], [place] [phone] Lina Caba MD 02/19/2025 Telephone [facility] [address] [place] [address] Lina Caba MD critical result 02/15/2025 10:00 AM EDT Office Visit [facility] [address], [place] [phone] Lina Caba MD Other specified hypothyroidism (Primary Dx); Right-sided chest wall pain; Tachycardia; Contact dermatitis due to other agent, unspecified contact dermatitis type 02/15/2025 Travel 02/08/2025 Patient Outreach [facility] [address] [place] [address] Zofia Pascual MD Care Coordination (CHW outreach for SDOH PT-1 and food needs-referral completed /) 02/08/2025 Patient Outreach [facility] [address] [place], [place] [phone] Zofia Pascual MD Transition Of Care (Tcm) (HDF scheduled and SDOH screening positive and Tobacco screening negative) 02/06/2025 Orders Only [facility] [address], [place] [phone] Candice Norris MD 02/05/2025 Orders Only [facility] [address], [place] [phone] Candice Norris MD 01/23/2025 Telephone [facility] [address], [place] [phone] Regina Barry MD Care Coordination 01/22/2025 Orders Only [place] [address] [place], [place] [phone] Candice Norris MD 01/19/2025 Population Health Risk Score [facility] () Department [address] [place] [phone] Provider, Population Health Generic 12/11/2024 Orders Only [...] oned from 07/09/2024 (Patient Refused) COVID-19 Vaccine (3 - 2023-2 5 season) 2025 04/08/2021, 03/11/2021 Postponed from [...] LACTIC ACID Routine 02/22/2025 9:58 PM EDT COMPREHENSIVE METABOLIC PANEL Routine 02/22/2025 9:52 PM EDT CBC WITH AUTO DIFFERENTIAL Routine 02/22/2025 9:52 PM EDT VASC US LOWER EXTREMITY VENOUS DUPLEX BILATERAL Routine 02/19/2025 1:17 PM EDT XR CHEST 2 VIEWS Routine 02/19/2025 11:1 6 AM EDT Right-sided chest wall pain T4, FREE Routine 02/19/2025 11:08 AM EDT TSH W/REFLEX TO FT4 Routine 02/19/2025 1 1:08 AM EDT Other specified hypothyroidism CBC WITH [...] Recently Relevant to Health Maintenance Results * Lactic Acid (02/22/2025 9:58 PM EDT) Lactic Acid 1.4 0.5 - 2.0 mmol/L [facility] 02/22/2025 9:58 PM EDT 02/22/2025 10:02 PM EDT us Generic External Data Provider LAB BLOOD ORDERAB LES Final Result [facility] [address] [place] [address] [phone] * (ABNORMAL) CBC auto differential (02/22/2025 9:52 PM EDT) Only the most recent of2 resultswithin the time period is included. White Blood Count 12.9(H) 4.8 - 10.8 X10*3/uL [facility] Red Blood Count 4.48(L) 4.60 - 5.80 X10*6/uL [facility] Hemoglobin 13.7(L) 14.0 - 18.0 g/dl [facility] Hematocrit 41.7(L) 42.0 - 52.0 % [facility] Mean Corpuscular Volume 93.1 80.0 - 98.0 fL [facility] Mean Corpuscular Hemoglobin 30.6 27.0 - 33.0 pg [facility] Mean Corpuscular HGB Conc 32.9 31.0 - 36.0 g/dl [facility] Red Cell Distribution Width 12.8 11.0 - 16.0 % [facility] Platelet Count 403(H) 160 - 400 X10*3/uL [facility] Mean Platelet Volume 10.0 9.4 - 12.4 fL [facility] Neutrophils Percent Auto 85.0(H) 45 - 73 % [facility] Imm Gran Pct Auto 0.5(H) 0.0 - 0.4 % [facility] Lymphocytes Percent Auto 8.1(L) 20 - 40 % [facility] Monocytes Percent Auto 5.8 2 - 11 % [facility] Eosinophils Percent Auto 0.3 0 - 4 % [facility] Basophils Percent Auto 0.3 0 - 2 % [facility] NRBC Pct Auto 0.0 0.0 - 0.2 /100WBC [facility] Neutrophils Absolute Auto 11.0(H) 2.0 - 8.3 x10*3/uL [facility] Imm Gran Abs Auto 0.07(H) 0.00 - 0.03 X10*3/uL [facility] Lymphocytes Absolute Auto 1.1(L) 1.2 - 4.9 X10*3/uL [facility] Monocytes Absolute Auto 0.8 0.1 - 1.2 X10*3/uL [facility] Eosinophils Absolute Auto 0.0 0.0 - 0.4 X10*3/uL [facility] Basophils Absolute Auto 0.0 0.0 - 0.2 X10*3/uL [facility] NRBC Abs Auto 0.000 0.0 - 0.012 X10*3/uL [facility] 02/22/2025 9:52 PM EDT 02/22/2025 10:02 PM EDT us Generic External Data Provider LAB BLOOD ORDERAB LES Final Result [facility] [address] [place] [phone] * VAS US Lower Extremity Venous Duplex Bilateral (02/19/2025 1:17 PM EDT) Historical Provider CV VASCULAR PROCEDURES Fi nal Result * XR Chest 2 Views (02/19/2025 11:16 AM EDT) Only the most recent of2 resultswithin the time period is included. Anatomical Region Laterality Modality Chest Radiographic Concepcion ging 02/19/2025 11:1 6 AM EDT Narrative 02/19/2025 3:19 PM EDT ? [facility] ?[address] ?[place] [address] ?XRay Report ? Signed ? Patient: Baron Joshua,Clive ?MR#: [id number] ?? [id number] ? : 1990 ?Acct:[id number] ? Age/Sex: 34 / M ?ADM Date: 04/14/25 ? Loc: HO.XRAY ? Attending Dr: Lina Caba MD ? Ordering Physician: Lina Caba MD ?? Date of Service: 02/19/25 ?? Procedure(s): XR chest 2V ?? Accession Number(s): [id number] ? cc: Lina Caba MD; Zofia Pascual MD ? EXAMINATION: ??XR CHEST 2 VIEWS ? HISTORY: Right sided chest wall pain after Bariatric surgery ? COMPARISON: Comparison is made with the prior examination dated ?? 02/07/2024. ? FINDINGS: ??PA and lateral views of the chest are submitted. The lungs ?? are expanded and clear. ??There is no pleural effusion, pneumothorax, or ?? pulmonary vascular congestion. ??The heart is normal in size. ??The bones ?? are intact. ? XR/XR chest 2V ?? IMPRESSION: ?? No acute cardiopulmonary abnormality. ? Electronically signed by: ??Chad Crook MD ??02/19/2025 03:16 PM EDT ? Dictated By: ?Chad Crook MD ? Signed By: ?<Electronically signed by Chad Crook MD in OV> ?02/19/25 1516 ? DD/ 1116 ? TD/TT: 02/19/25 1129 ? Early Childhood Education Instructor: ? Procedure Note [place], Image - 02/19/2025 [place] [id number] XRay Report Signed Patient: Clive Giles#: [id number] : 1990Acct:[id number] Age/Sex: 34 / MADM Date: 02/19/25 Loc: [facility] Attending Dr: Lina Caba MD Ordering Physician: Lina Caba MD Date of Service: 02/19/25 Procedure(s): XR chest 2V Accession Number(s): [id number] cc: Lina Caba MD; Zofia Pascual MD EXAMINATION: XR CHEST 2 VIEWS HISTORY: Right sided chest wall pain after Bariatric surgery COMPARISON: Comparison is made with the prior examination dated 02/07/2024. FINDINGS: PA and lateral views of the chest are submitted. The lungs are expanded and clear. There is no pleural effusion, pneumothorax, or pulmonary vascular congestion. The heart is normal in size. The bones are intact. XR/XR chest 2V IMPRESSION: No acute cardiopulmonary abnormality. Electronically signed by: Chad Crook MD 02/19/2025 03:16 PM EDT RP Dictated By: Chad Crook MD Signed By: <Electronically signed by Chad Crook MD in OV> 02/19/25 1516 DD/ 1116 TD/TT: 02/19/25 1129 Early Childhood Education Instructor: us Lina Caba MD IMG XR PROCEDURES Edited Re sult - Final * D Dimer High Sensitivity (02/19/2025 11:08 AM EDT) [facility] D Dimer High Sensitivity 1,105 NG/ML [facility] Comment:Results of D DIMER c alled to SAL SpearsHernandez on 02/19/25at 1211 by [email or web address]- DIMER HS [...] Caba MD LAB BLOOD ORDERABLES Final Result [facility] [address] [place] [phone] * (ABNORMAL) TSH W/Reflex to FT4 (02/19/2025 11:08 AM EDT) Pathologist [facility] TSH reflex Free T4 7.26(H) 0.32 - 4.0 uIU/mL [facility] Blood Venous blood specimen / Unknown 02/19/2025 11:08 AM EDT 02/19/2025 11:11 AM EDT Lina Caba MD LAB BLOOD ORDERABLES Final Result Performing Organization Address City/[facility]/ZIP Co de Phone Number [facility] [address] [place] [phone] * T4, Free (02/19/2025 11:08 AM EDT) Free T4 (Free Thyroxine) 0.91 0.71 - 1.85 ng/dL [facility] 02/19/2025 11:0 8 AM EDT 02/19/2025 11:11 AM EDT us Lina Caba MD LAB BLOOD ORDERABLES Final Result Performing Organization Address City/[facility]/ZIP Co de Phone Number [facility] [address] [place] [phone] * (ABNORMAL) Comprehensive Metabolic Panel (02/19/2025 11:08 AM EDT) Sodium 138 135 - 145 mmol/L [facility] Potassium 5.0 3.3 - 5.1 mmol/L [facility] Chloride 103 96 - 108 mmol/L [facility] Carbon Dioxide 29 22 - 29 mmol/L [facility] Anion Gap 11(L) 12 - 20 [facility] Urea Nitrogen (BUN) 12 9 - 16 mg/dL [facility] Creatinine, Serum 0.95 0.5 - 1.4 mg/dL [facility] Estimated Glomerular Filt Rate >60 [facility] Comment:Chronic Kidney Disea se: Estimated GFR < 60 mL/min/1.61q0Isiwwt Kidney Disease: Estimated GFR < 15 mL/min/1.73m2 Glucose 94 60 - 115 mg/dL [facility] Calcium 10.5(H) 8.4 - 10.2 mg/dL [facility] Bilirubin, Total 0.5 0.0 - 1.0 mg/dL [facility] Aspartate Amino Transferase 49(H) 5 - 37 U/L [facility] Alanine Aminotransferase 68(H) 0 - 40 U/L [facility] Total Protein 9.4(H) 6.5 - 8.0 g/dL [facility] Albumin Level 3.8 3.5 - 5.0 g/dL [facility] Alkaline Phosphatase 97 39 - 117 U/L [facility] Blood Venous blood specimen / Unknown 02/19/2025 11:08 AM EDT 02/19/2025 11:11 AM EDT Result [facility] Lina Caba MD LAB BLOOD ORDERABLES Final Result Performing Organization Address City/State/[facility] Co de Phone Number [facility] [address] [place] [phone] * CT Abdomen Pelvis w/ Contrast (02/05/2025 9:43 AM EDT) Anatomical Region Laterality Modality Body, Pelvis, Abdomen Computed T omography Result [facility] Historical Provider IMG CT PROCEDURES Final R esult * CT CHEST ANGIO W AND WO IV CONTRAST (02/03/2025 10:10 AM EDT) Anatomical Region Laterality Modality Computed Tomogra phy Historical Provider IMG CT PROCEDURES Final R esult * ECG 12 lead (02/03/2025 10:03 AM EDT) Historical Provider ECG ORDERABLES Final Res ult * SARS-CoV-2 RNA, Influenza A/B, and RSV RNA, Ql NAAT (12/11/2024 4:51 PM EST) Influenza A PCR NEGATIVE Negative [facility] Influenza B PCR NEGATIVE Negative [facility] Resp Syncy Virus RNA Qual PCR NEGATIVE Negative [facility] SARS COV2 PCR NEGATIVE Negative [facility] Comment:All test results mus t be [...] use by authorized laboratories.Testing performed on the Smallable GeneXpert utilizingreal-time RT-PCR.All SARS CoV2 and positive influenza A/B results arereported to [facility]. 12/11/2024 4:51 PM EST 12/11/2024 4:54 PM EST Generic External Data Provider LAB MICROBIOLOGY - GENERAL ORDERABLES Final Result Performing Organization Address [facility] Co de Phone Number [facility] [address] [place] [phone] * Hepatitis C Antibody with Reflex to HCV, RNA, Quantitative, Real-Time PCR (10/23/2024 8:54 AM EST) Pathologist [facility] Hepatitis C Antibody Nonreactive Nonreactive [facility] Comment:Antibodies to HCV no t detected; does not exclude early acuteHCV infection. Blood Venous blood specimen / Unknown 10/23/2024 8:54 AM EST 10/23/2024 2:01 PM EST Zofia Pascual MD LAB BLOOD ORDERABLES Final Re sult Performing Organization Address [facility] Co de Phone Number [facility] [address] [place] [phone] * HIV-1/2 Antigen and Antibodies, Fourth Generation, with Reflexes (10/23/2024 8:54 AM EST) HIV AB/AG Nonreactive Nonreactive [facility] Comment:HIV-1 p24 Ag and/or HIV-1/HIV-2 Ab not detected.A test result that is nonreactive does not exclude thepossibility of exposure to or infection with HIV-1 and/orHIV-2. Nonreactive results in this assay for individualswith prior exposure to HIV-1 and/or HIV-2 may be due toantigen and antibody levels that are below the limit ofdetection of this assay.The [employer] HIV Ag/Ab Combo assay result andsupplemental assay results should be interpreted inconjunction with the patient's clinical presentation,history and other laboratory results. If the results areinconsistent with clinical evidence, additional testing issuggested to confirm the result. Blood Venous blood specimen / Unknown 10/23/2024 8:54 AM EST 10/23/2024 2:01 PM EST us Zofia Pascual MD LAB BLOOD ORDERABLES Final Re sult [facility] [address] [place] [address] [phone] * (ABNORMAL) Lipid Panel, Standard (03/21/2024 11:55 AM EDT) Triglycerides 80 <150 mg/dL [facility] Comment:Desirable Triglyceri de: less than 150 mg/dLBorderline High Triglyceride 150-199 mg/dLHigh Triglyceride: 200-499 mg/dLVery High Triglyceride: greater than or equal to 5OO mg/dL Cholesterol 160 <200 mg/dL [facility] Comment:Desirable Cholestero l: less than 200 mg/dLBorderline High Cholesterol: 200-239 mg/dLHigh Cholesterol: greater than 239 mg/dL LDL Cholesterol Calculated 100(H) <100 mg/dL [facility] Comment:Desirable LDL: less than 100 mg/dLNear Optimal/Above Optimal LDL: 110- 129 mg/dLBorderline High LDL: 130-159 mg/dLHigh LDL: 160-189 mg/dLVery High LDL: greater than or equal to 190 mg/dL HDL Cholesterol 44 >40 mg/dL [facility] Comment:Desirable HDL: great er than 40 mg/dL Note: This HDL assay may give artificially low results in patients with liver disease. 03/21/2024 11:5 5 AM EDT 03/21/2024 11:55 AM EDT us Zofia Pascual MD LAB BLOOD ORDERABLES Final Re sult [facility] [address] [place] [phone] from Last 3 Months or Most Recently Relevant to Health Maintenance Insurance [employer] Care Teams Licensed Nursing Assistant Relationship Specialty Start Date End Date Zofia Pascual MD [address] [place] [address] PCP - General Family Medicine 03/07/24
[2025-02-22 22:42] LABS: Influenza A PCR NEGATIVE (Negative); Influenza B PCR NEGATIVE (Negative); Resp Syncy Virus RNA Qual PCR NEGATIVE (Negative); SARS COV2 PCR INHOUSE NEGATIVE (Negative)
[2025-02-22 23:36] LABS: Anion Gap 15 (12-20); Carbon Dioxide 26 mmol/L (22-29); Chloride 100 mmol/L (96-108); Potassium 4.4 mmol/L (3.3-5.1); Sodium 137 mmol/L (135-145)
[2025-02-23 01:29] VITALS: BP 109/70; PULSE 101; RESP 20; TEMP 36.9; O2SAT 98
[2025-02-23] MEDS: 0.9 % Sodium Chloride 1,000 ML 999 ML IV (01:32)
[2025-02-23] MEDS: ondansetron HCL 4 MG/2 ML VIAL IVPUSH (01:32)
[2025-02-23] MEDS: Acetaminophen 1,000 MG/100 ML PIGGYBACK 400 MG IV (02:01)
[2025-02-23] MEDS: iohexoL 350 MG/ML 100 ML INFUS..BTL 85 ML IV (02:09)
--- NOTE | 2025-02-23 03:19 | ED_ITS ---
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 De Guzman presents with diffuse abdominal pain x1 day. Associated nausea vomiting diarrhea fever and chills. Pain primarily right-sided. Patient did not call his surgeon. Related Data Previous Rx's ?Medication ?Instructions ?Recorded diphenhydramine HCl 25 mg capsule 25 mg PO BID #10 caps 09/27/23 famotidine 20 mg tablet 20 mg PO BID #14 tabs 09/27/23 metronidazole 500 mg tablet 500 mg PO Q8H #15 tabs 09/27/23 prednisone 20 mg tablet 40 mg (2 x 20 mg) PO DAILY #8 tabs 09/27/23 albuterol sulfate 90 mcg/actuation 2 puff inhalation Q4-6H PRN 02/08/24 aerosol inhaler shortness of breath or wheezing #8.5 grams ibuprofen 600 mg tablet 600 mg PO Q6H PRN fever or pain 05/31/24 #30 tabs cyclobenzaprine 10 mg tablet 10 mg PO TID PRN pain #14 tabs 12/11/24 Allergies Allergy/AdvReac Type Severity Reaction Status Date / Time amoxicillin AdvReac Angioedema Verified 02/22/25 21:04 azithromycin AdvReac Angioedema Verified 02/22/25 21:04 Penicillins AdvReac Angioedema Verified 02/22/25 21:04 Review of Systems 2 Review of Systems: Yes all other systems are reviewed and are negative Constitutional: Constitutional: Reports fatigue and Reports fever(s) Cardiovascular: Cardiovascular: Denies chest pain and Denies dyspnea Respiratory: Respiratory: Denies cough and Denies dyspnea Gastrointestinal: Gastrointestinal: Reports abdominal pain, Reports diarrhea, Reports nausea and Reports vomiting Endocrine: Endocrine: Reports fatigue PMFSH Past Medical History Attestation statement: The following information was validated with the patient. Medical History No known health problems Social History Social History Household Members: Spouse Housing: House Do you presently have visiting nurse or other home services: No Alcohol intake: never Patient Tobacco Use Status: Never used Tobacco Advance Directives: No Advance Directives Information Provided: No Do you have a plan to hurt others: No Plan service: No Physical Exam ED Vital Signs: Vital Signs - 24 hr 02/22/25 21:03 02/23/25 01:29 02/23/25 03:21 Temperature 99.9 F 98.4 F 98.4 F Pulse Rate 113 H 101 H 92 Respiratory Rate 18 20 16 Blood Pressure 119/71 109/70 106/65 Pulse Oximetry 97 98 95 Oxygen Delivery Method Room Air Room Air Room Air 02/23/25 03:24 Temperature Pulse Rate Respiratory Rate Blood Pressure 107/62 Pulse Oximetry Oxygen Delivery Method BMI result Body Mass Index 28.5 Const Other: Alert Orientation/consciousness: patient oriented x3 Resp Effort & Inspection: normal respiratory effort Cardio Other: Normal peripheral perfusion GI Other: Abdomen is soft, obese, nondistended, mild to moderate tenderness along right mid to lower abdomen with moderate involuntary guarding no peritoneal signs Skin Other: Warm dry no rash Neuro General: patient oriented x3, gait normal, no focal motor deficits and CN's II- XI intact bilaterally Psych Other: Cooperative Course Consultations Consultation #1: [facility] for consult, juan manuel mcrae, radiology is generating a disc Speaking with Dr. amador, she is accepting the patient, it will be a direct admit, I am awaiting bed placement Time: 03:45 Medications Administered Generic Name Dose Route Start Last Admin Trade Name Freq PRN Reason Stop Dose Admin Vancomycin HCl 2,000 mg in 500 mls @ 250 mls/hr 02/23/25 03:15 02/23/25 03:22 Vancomycin/Ns IV 02/23/25 05:14 250 mls/hr ONCE ONE Administration Discontinued Medications Generic Name Dose Route Start Last Admin Trade Name Freq PRN Reason Stop Dose Admin Sodium Chloride 1,000 mls @ 999 mls/hr 02/23/25 01:30 02/23/25 03:19 Ns IV 02/23/25 02:30 Infused .Q1H1M CELIA Infusion Acetaminophen 1,000 mg in 100 mls @ 400 mls/hr 02/23/25 01:41 02/23/25 02:39 Ofirmev IV 02/23/25 01:55 Infused ONCE ONE Infusion Iohexol 85 ml 02/23/25 02:08 02/23/25 02:09 Iohexol 350 Mg/Ml 100 Ml Infus..Btl IV 02/23/25 02:09 85 ml ONCE ONE Administration Morphine Sulfate 10 mg 02/23/25 01:17 02/23/25 01:32 Morphine Sulfate 10 Mg/Ml Cartridge IVPUSH 02/23/25 01:18 Not Given ONCE ONE Protocol Ondansetron HCl 4 mg 02/23/25 01:17 02/23/25 01:32 Ondansetron Hcl 4 Mg/2 Ml Vial IVPUSH 02/23/25 01:18 4 mg ONCE ONE Administration Medical Decision Making Medical Decision Making MDM Narrative: 34-year-old male with a history of morbid obesity, prior sleeve gastrectomy, 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 De Guzman presents with diffuse abdominal pain x1 day. Associated nausea vomiting diarrhea fever and chills. Pain primarily right-sided. Patient did not call his surgeon. Problem: Recent surgery History: Per patient I have considered the following differential diagnoses: C diff, postoperative infection, appendicitis, cholecystitis Plan: Screening labs completed, we will be obtaining a CT of the abdomen. I am most concerned for postoperative complication, i.e. intra-abdominal abscess. The patient's pain is mid abdomen. He declined morphine, giving IV Tylenol and IV fluid with antiemetic. Thought about cholecystitis, however the pain is not focal to the right upper quadrant. Likewise thought about appendicitis, however the pain is not focal to the right lower quadrant. CT pending. Thought about C diff, however the patient just started having diarrhea, he is only having minimal symptoms. Labs: Leukocytosis with left shift, no electrolyte abnormalities, chronically elevated LFT CT abd/pelvis: MPRESSION: 1. Large intraperitoneal probable abscess in the right lower quadrant with extensive regional fat stranding or inflammatory change. The peripherally enhancing fluid collection abuts multiple loops of bowel in the right lower quadrant. Visible proximal portions of the appendix are grossly within normal limits. 2. Linear subcutaneous fat stranding in the right lower quadrant abdominal wall, query postoperative change or penetrating injury. Lab Data 02/22/25 21:52 02/22/25 21:52 Labs: Lab Results 02/22/25 02/22/25 Range/Units 21:52 21:58 WBC 12.9 H (4.8-10.8) X10*3/uL RBC 4.48 L (4.60-5.80) X10*6/uL Hgb 13.7 L (14.0-18.0) g/dl Hct 41.7 L (42.0-52.0) % MCV 93.1 (80.0-98.0) fL MCH 30.6 (27.0-33.0) pg MCHC 32.9 (31.0-36.0) g/dl RDW 12.8 (11.0-16.0) % Plt Count 403 H D (160-400) X10*3/uL MPV 10.0 (9.4-12.4) fL Immature Gran % (Auto) 0.5 H (0.0-0.4) % Neut % (Auto) 85.0 H (45-73) % Lymph % (Auto) 8.1 L (20-40) % [place] % (Auto) 5.8 (2-11) % Eos % (Auto) 0.3 (0-4) % Baso % (Auto) 0.3 (0-2) % Lymph # (Auto) 1.1 L (1.2-4.9) X10*3/uL [place] # (Auto) 0.8 (0.1-1.2) X10*3/uL Eos # (Auto) 0.0 (0.0-0.4) X10*3/uL Baso # (Auto) 0.0 (0.0-0.2) X10*3/uL Abs Immat Gran (auto) 0.07 H (0.00-0.03) X10*3/uL Absolute Neuts (auto) 11.0 H (2.0-8.3) x10*3/uL Absolute Nucleated RBC 0.000 (0.0-0.012) X10*3/uL Nucleated RBC % (auto) 0.0 (0.0-0.2) /100WBC Sodium 137 (135-145) mmol/L Potassium 4.4 (3.3-5.1) mmol/L Chloride 100 (96-108) mmol/L Carbon Dioxide 26 (22-29) mmol/L Anion Gap 15 (12-20) BUN 11 (9-16) mg/dL Creatinine 0.95 (0.5-1.4) mg/dL Estim Creat Clear Calc 131.2 Estimated GFR > 60 Random Glucose 100 (60-115) mg/dL Lactic Acid 1.4 (0.5-2.0) mmol/L Calcium 10.2 (8.4-10.2) mg/dL Total Bilirubin 1.0 (0.0-1.0) mg/dL AST 55 H (5-37) U/L ALT 77 H (0-40) U/L Alkaline Phosphatase 115 (39-117) U/L Total Protein 9.5 H (6.5-8.0) g/dL Albumin 3.7 (3.5-5.0) g/dL Influenza Type A (PCR) NEGATIVE (Negative) Influenza Type B (PCR) NEGATIVE (Negative) RSV RNA Qual (PCR) NEGATIVE (Negative) SARS-CoV-2 RNA (RT-PCR) NEGATIVE (Negative) Discharge Plan Discharge Clinical Impression: Intra-abdominal abscess Patient Disposition: Xfer Other Transfer Details: [facility] for surgical consult Prescriptions: No Action ibuprofen 600 mg tablet 600 mg PO Q6H PRN (Reason: fever or pain) Qty: 30 0RF metronidazole 500 mg Tablet 500 mg PO Q8H Qty: 15 0RF famotidine 20 mg tablet 20 mg PO BID Qty: 14 0RF prednisone 20 mg tablet 40 mg PO DAILY Qty: 8 0RF diphenhydramine HCl 25 mg Capsule 25 mg PO BID Qty: 10 0RF albuterol sulfate 90 mcg/actuation HFA aerosol inhaler 2 puff inhalation Q4-6H PRN (Reason: shortness of breath or wheezing) Qty: 8.5 0RF cyclobenzaprine 10 mg tablet 10 mg PO TID PRN (Reason: pain) Qty: 14 0RF Print Language: Greenlandic
[2025-02-23 03:21] VITALS: BP 106/65; PULSE 92; RESP 16; TEMP 36.9; O2SAT 95
[2025-02-23] MEDS: vancomycin/NS 2,000 MG/500 ML PLAST..BAG 250 MG IV (03:22)
[2025-02-23 03:24] VITALS: BP 107/62
--- NOTE | 2025-02-23 04:14 | PC.NURSE ---
attempted to call [facility] for nurse to nurse report. no answer at this time
[2025-02-23 04:55] VITALS: BP 107/62; PULSE 92; RESP 16; TEMP 36.9; O2SAT 95
== END 2025-02-23 04:56 | disposition other institution (70) ==
PROVIDERS: Emergency Provider Emergency Medicine; PCP Family Medicine
DX: K65.1 Peritoneal abscess (principal); R10.31 Right lower quadrant pain; R11.2 Nausea with vomiting, unspecified; Z90.3 Acquired absence of stomach [part of]; Z98.84 Bariatric surgery status; Z03.818 Encounter for observation for suspected exposure to other biological agents ruled out; Z79.899 Other long term (current) drug therapy
CPT/HCPCS: 0241U; 36415; 74177; 80053; 83605; 85025; 87040; 96361; 96374; 99284; J0131; J2405; J3370; Q9967

== ENCOUNTER → 2025-02-23 01:17 | Outpatient (BNV) | payer MEDICAID, SELFPAY | PROVIDERS: Emergency Provider Emergency Medicine; PCP Family Medicine; Visit Provider General Practice | DX: R10.30 Lower abdominal pain, unspecified (principal) | CPT/HCPCS: 74177 ==